=== PATIENT | male | born 1960 | race Caucasian/White ===

== ENCOUNTER 2022-04-26 09:53 | Day surgery (SDC) | payer OTHER ==
[2022-04-22 14:26] VITALS: BMI 20.7
[~2022-04-26 09:53] MED LIST: LACTATED RINGERS 1,000 ML IV SCH; LIDOCAINE 1% (10MG/ML) FOR IV START INTRADERMA PRN
[2022-04-26 10:35] VITALS: RESP 16; TEMP 98
[2022-04-26] MEDS ORDERED: PROPOFOL 10 MG/ML 20 ML VIAL IV ONE (11:11)
[2022-04-26] MEDS ORDERED: LIDOCAINE 2% INJ 20 MG/ML (2 ML VIAL) ONE (11:11)
--- NOTE | 2022-04-26 11:25 | P.PCN ---
Date of Procedure: 04/26/22 Procedure(s) Performed: BRIEF HISTORY: Patient is a 61-year-old, pleasant, white male scheduled for an upper endoscopy as part of evaluation of chronic dyspepsia for the last 1 year duration. He was diagnosed with H. pylori on serology testing and was treated with antibiotics with no help. He continues to have epigastric discomfort, epigastric fullness and chronic persistent nausea with weight loss of 20 pounds in the last 1. PROCEDURE PERFORMED: Esophagogastroduodenoscopy With biopsy PREOPERATIVE DIAGNOSIS: Chronic dyspepsia and history of H. pylori infection for 1 year duration IV sedation per anesthesia. PROCEDURE: After informed consent was obtained, the patient was brought into the endoscopy unit. IV sedation was administered by Anesthesia under continuous monitoring. Initially the Olympus GIF-140 video endoscope was inserted into the mouth. Esophagus intubated without any difficulty. It was gradually advanced into the stomach and duodenum and carefully examined. The bulb and the second part of the duodenum appeared normal. The scope at this time was withdrawn to the stomach, adequately insufflated with air, and upon careful examination, mucosa of the antrum, had linear esophageal erythema consistent with gastritis and biopsies were done from this area. The body, cardia and the fundus appeared normal. The scope was then withdrawn into the esophagus. The GE junction was located at 39 cm from the incisors. The esophagus appeared normal. There were no erosions or ulcerations seen , biopsies were done from the distal esophagus and the patient tolerated the procedure well. IMPRESSION: 1. Mild antral gastritis. 2. No evidence of esophagitis or peptic ulcer disease. RECOMMENDATIONS: The findings of this examination were discussed with the patient as well as his family. He was advised to follow with the biopsy results. Recommend Prilosec [id number] 20 mg daily.
[2022-04-26 11:44] VITALS: BP 155/96; PULSE 83
== END 2022-04-26 12:31 | disposition home or self-care (01) ==
LOC: ORWHC2ENDO 09:53
PROVIDERS: ATTEND Internal Medicine Gastroenterology
DX: K29.50 Unspecified chronic gastritis without bleeding (principal); K31.A11 Gastric intestinal metaplasia without dysplasia, involving the antrum; K20.90 Esophagitis, unspecified without bleeding; Z87.19 Personal history of other diseases of the digestive system; F32.A Depression, unspecified; F17.200 Nicotine dependence, unspecified, uncomplicated; Z79.51 Long term (current) use of inhaled steroids; Z79.899 Other long term (current) drug therapy; Z80.0 Family history of malignant neoplasm of digestive organs; Z82.49 Family history of ischemic heart disease and other diseases of the circulatory system; Z83.3 Family history of diabetes mellitus; Z84.89 Family history of other specified conditions
CPT/HCPCS: 88305; 43239; J2704; J2001

== ENCOUNTER 2024-02-17 21:09 | Inpatient (IN) | payer OTHER ==
[2024-02-17] MEDS: HEPARIN SOD,PORK IN 0.45% NACL 25,000 UNIT in 0.45% NACL 1 250ML.BAG IV SCH (21:33)
--- NOTE | 2024-02-17 21:35 | ED ---
General Adult HPI - General Chief complaint: Shortness of Breath Stated complaint: covid Time Seen by Provider: 02/17/24 21:11 Source: patient, EMS, RN notes reviewed, old records reviewed Mode of arrival: EMS Limitations: altered mental status - History of Present Illness Initial comments: 63-year-old male who presented from [facility] for evaluation of dyspnea, which was apparently multifactorial. Patient was presenting with known coronavirus and increased dyspnea. He was found to be in acute CHF with an elevated BNP and pulmonary edema on x-ray. Additionally he had uptrending troponin from 0.146-1. He was sent to this hospital for cardiology consultation regarding this elevated troponin and NSTEMI. Patient had been started on heparin, received IV antibiotics as well as IV steroids and IV Lasix. Patient arrives confused with difficult time answering questions. Unknown baseline for this patient. He denies central chest pain but history is significantly limited. - Related Data Home Medications Medication Instructions Recorded Confirmed Cetirizine HCl [Zyrtec] 10 mg PO DAILY 04/24/17 04/22/22 Ibuprofen [Motrin] 200 - 400 mg PO Q6HR PRN 04/24/17 04/22/22 SUMAtriptan succinate [Imitrex] 25 mg PO BID PRN 04/24/17 04/22/22 Budesonide-Formot 160-4.5 Mcg 2 puff INHALATION BID 04/22/22 04/22/22 [Symbicort 160-4.5 Mcg Inhaler] Montelukast Sodium [Singulair] 10 mg PO HS 04/22/22 04/22/22 Venlafaxine HCl ER [Effexor Xr] 75 mg PO DAILY 04/22/22 04/22/22 Allergies Allergy/AdvReac Type Severity Reaction Status Date / Time No Known Allergies Allergy Verified 02/17/24 21:17 Review of Systems ROS Statement: Those systems with pertinent positive or pertinent negative responses have been documented in the HPI. ROS Other: All systems not noted in ROS Statement are negative. Past Medical History Past Medical History: COPD, Deep Vein Thrombosis (DVT), Pneumonia, Skin Disorder, Vascular Disorder Additional Past Medical History / Comment(s): unexplained wt loss, nausea in am with abdominal bloating and bleeding seen with stools,hx migraines, multiple varicose vein problems including vein stripping, pneumonia 2009,DVT left leg History of Any Multi-Drug Resistant Organisms: None Reported Additional Past Surgical History / Comment(s): vein stripping X5,colonoscopy- last done 2020,hemorrhoidectomy Past Anesthesia/Blood Transfusion Reactions: No Reported Reaction Past Psychological History: Anxiety, Depression Smoking Status: Current every day smoker Past Alcohol Use History: None Reported Past Drug Use History: None Reported - Past Family History Sister(s) Family Medical History: Cancer Additional Family Medical History / Comment(s): colon Brother(s) Family Medical History: Cancer Additional Family Medical History / Comment(s): stomach Mother Additional Family Medical History / Comment(s): age 85 of heart problems Father Additional Family Medical History / Comment(s): age 87 of heart problems. General Exam Limitations: altered mental status General appearance: lethargic Head exam: Present: atraumatic, normocephalic Eye exam: Present: normal appearance, PERRL Respiratory exam: Present: respiratory distress, rales, decreased breath sounds Cardiovascular Exam: Present: normal rhythm, tachycardia GI/Abdominal exam: Present: soft. Absent: distended, tenderness, guarding Neurological exam: Absent: oriented X3 Psychiatric exam: Present: normal affect, normal mood Skin exam: Present: warm, dry, intact Course Vital Signs 02/17/24 02/17/24 02/17/24 21:12 21:26 21:36 Temperature 97.4 F L Pulse Rate 128 H Respiratory 24 24 Rate Blood Pressure 147/107 O2 Sat by Pulse 100 Oximetry Fraction of 80 Inspired Oxygen (FIO2) 02/17/24 02/17/24 02/17/24 22:36 23:30 23:31 Temperature 98.2 F Pulse Rate 115 H Respiratory 35 H Rate Blood Pressure 116/97 87/46 64/32 O2 Sat by Pulse 97 Oximetry Fraction of Inspired Oxygen (FIO2) 02/17/24 02/17/24 02/17/24 23:33 23:34 23:38 Temperature Pulse Rate Respiratory Rate Blood Pressure 55/33 71/25 O2 Sat by Pulse Oximetry Fraction of 60 Inspired Oxygen (FIO2) 02/17/24 02/17/24 23:45 23:52 Temperature Pulse Rate Respiratory Rate Blood Pressure 63/41 65/43 O2 Sat by Pulse Oximetry Fraction of Inspired Oxygen (FIO2) Procedures - Intubation Sedative: Etomidate Mg Given: 10 Paralytic: Succinylcholine Mg Given: 100 Laryngoscope: Raoul Size: 3 ET Tube Size: 8 ET Tube Uncuffed: No Tube Secured Depth (cm): 23 Tube Secured Location: lips Tube Placement Confirmation: visualized tube passing through cords, equal breath sounds bilaterally, no breath sounds over epigastrium, confirmation by capnometry Patient Tolerated Procedure: well Intubation Complications: none Medical Decision Making - Medical Decision Making Was pt. sent in by a medical professional or institution (, [facility], PSYCHIATRIC REGISTERED NURSE, urgent care, hospital, or penitentiary...) When possible be specific @José Miguel collazo [place] Did you speak to anyone other than the patient for history (EMS, parent, family, police, friend...)? What history was obtained from this source @ -No Did you review nursing and triage notes (agree or disagree)? Why? @ -I reviewed and agree with nursing and triage notes Were old charts reviewed (outside hosp., previous admission, EMS record, old EKG, old radiological studies, urgent care reports/EKG's, penitentiary records)? Report findings @ -No old charts were reviewed Differential Dyspnea: Coronary syndrome, arrhythmia, tamponade, asthma, COPD, pulmonary embolism, pneumonia, pneumothorax, pulmonary effusion, anaphylaxis, diabetic ketoacidosis, flailed chest, pulmonary contusion, diaphragmatic rupture, anemia, neuromuscular, this is not meant to be an all-inclusive list. EKG interpreted by me (3pts min.). @ -Sinus tachycardia significant artifact limiting assessment. I do not see any ST segment elevation rate of 123, NM interval 158, QRS duration 77, QTc 367 X-rays interpreted by me (1pt min.). @ -Initial chest x-ray shows hyperinflation, repeat single view chest x-ray after intubation shows the ET tube above the marc approximately 9 cm this is lower. CT interpreted by me (1pt min.). @ -[CT angiography negative for pulmonary embolism. U/S interpreted by me (1pt. min.). @ -None done What testing was considered but not performed or refused? (CT, X-rays, U/S, labs)? Why? @ -None What meds were considered but not given or refused? Why? @ -None Did you discuss the management of the patient with other professionals (professionals i.e. , PA, PSYCHIATRIC REGISTERED NURSE, lab, RT, psych nurse, social work faculty member, hold worker, teacher, business banking officer, rn case mgr)? Give summary @Case discussed with the admitting physician Dr. Campos the pulmonary final finisher forging dies Dr. Mcdaniels and the calculator operator on-call Was smoking cessation discussed for >3mins.? @ -No Was critical care preformed (if so, how long)? @ -35 minutes Were there social determinants of health that impacted care today? How? (Homelessness, low income, unemployed, alcoholism, drug addiction, transportat ion, low edu. Level, literacy, decrease access to med. care, penitentiary, rehab)? @ -No Was there de-escalation of care discussed even if they declined (Discuss DNR or withdrawal of care, Hospice)? DNR status @ -No What co-morbidities impacted this encounter? (DM, HTN, Smoking, COPD, CAD, Cancer, CVA, ARF, Chemo, Hep., AIDS, mental health diagnosis, sleep apnea, morbid obesity)? @ -COPD. Was patient admitted / discharged? Hospital course, mention meds given and route, prescriptions, significant lab abnormalities, going to OR and other pertinent info. @ -63-year-old male presenting with multifactorial dyspnea, chief complaint of dyspnea requiring BiPAP. Patient unable to contribute significantly to the history. Despite BiPAP in the emergency department the patient's respiratory status continues to decline he becomes more altered. Venous gas shows a CO2 of 100 he is acidotic. Decision is made to intubate this patient for respiratory support and altered level of consciousness. Patient has significant lab abnormalities including abnormally and venous gas and a uptrending troponin. He is continued on heparin. He is also treated for COPD exacerbation. He is admitted to the ICU with both pulmonology and cardiology on consultation. Undiagnosed new problem with uncertain prognosis? @ -No Drug Therapy requiring intensive monitoring for toxicity (Heparin, Nitro, Insulin, Cardizem)? @ -No Were any procedures done? @ -Yes intubation Diagnosis/symptom? @ -Respiratory failure, COPD, NSTEMI Acute, or Chronic, or Acute on Chronic? @ -Acute Uncomplicated (without systemic symptoms) or Complicated (systemic symptoms)? @ -Complicated Side effects of treatment? @ -No Exacerbation, Progression, or Severe Exacerbation? @ -No Poses a threat to life or bodily function? How? (Chest pain, USA, OR, pneumonia, PE, COPD, DKA, ARF, appy, cholecystitis, CVA, Diverticulitis, Homicidal, S uicidal, threat to staff... and all critical care pts) @ -Yes, respiratory failure, ACS - Lab Data Result diagrams: 02/17/24 21:30 02/17/24 21:30 Lab Results 02/17/24 02/17/24 02/17/24 Range/Units 21:30 21:30 21:30 WBC 7.1 (3.8-10.6) k/uL RBC 4.66 (4.30-5.90) m/uL Hgb 15.8 (13.0-17.5) gm/dL Hct 50.2 (39.0-53.0) % MCV 107.7 H (80.0-100.0) fL MCH 33.9 (25.0-35.0) pg MCHC 31.5 (31.0-37.0) g/dL RDW 12.2 (11.5-15.5) % Plt Count 315 (150-450) k/uL MPV 7.9 Neutrophils % (Manual) 39 % Band Neuts % (Manual) 35 % Lymphocytes % (Manual) 14 % Monocytes % (Manual) 13 % Neutrophils # (Manual) 5.20 (1.3-7.7) k/uL Lymphocytes # (Manual) 0.99 L (1.0-4.8) k/uL Monocytes # (Manual) 0.92 (0-1.0) k/uL Nucleated RBCs 2 H (0-0) /100 WBC Manual Slide Review Performed Macrocytosis Moderate PT 10.2 (10.0-12.5) sec INR 0.9 (<1.2) APTT 31.4 H (22.0-30.0) sec VBG pH (7.31-7.41) VBG pCO2 (37-51) mmHg VBG HCO3 (24-28) mmol/L Sodium 141 (137-145) mmol/L Potassium 5.3 H (3.5-5.1) mmol/L Chloride 101 (98-107) mmol/L Carbon Dioxide 32 H (22-30) mmol/L Anion Gap 8 mmol/L BUN 21 H (9-20) mg/dL Creatinine 0.65 L (0.66-1.25) mg/dL Est GFR (CKD-EPI)AfAm >90 (>60 ml/min/1.73 sqM) Est GFR (CKD-EPI)NonAf >90 (>60 ml/min/1.73 sqM) Glucose 205 H (74-99) mg/dL Plasma Lactic Acid Dieter (0.7-2.0) mmol/L Calcium 9.2 (8.4-10.2) mg/dL Magnesium 2.1 (1.6-2.3) mg/dL Total Bilirubin 0.8 (0.2-1.3) mg/dL AST 82 H (17-59) U/L ALT 61 H (4-49) U/L Alkaline Phosphatase 115 (38-126) U/L Troponin I (0.000-0.034) ng/mL NT-Pro-B Natriuret Pep 27834 pg/mL Total Protein 8.3 H (6.3-8.2) g/dL Albumin 4.4 (3.5-5.0) g/dL Influenza Type A (PCR) (Not Detectd) Influenza Type B (PCR) (Not Detectd) RSV (PCR) (Not Detectd) SARS-CoV-2 (PCR) (Not Detectd) 02/17/24 02/17/24 02/17/24 Range/Units 21:30 21:30 21:35 WBC (3.8-10.6) k/uL RBC (4.30-5.90) m/uL Hgb (13.0-17.5) gm/dL Hct (39.0-53.0) % MCV (80.0-100.0) fL MCH (25.0-35.0) pg MCHC (31.0-37.0) g/dL RDW (11.5-15.5) % Plt Count (150-450) k/uL MPV Neutrophils % (Manual) % Band Neuts % (Manual) % Lymphocytes % (Manual) % Monocytes % (Manual) % Neutrophils # (Manual) (1.3-7.7) k/uL Lymphocytes # (Manual) (1.0-4.8) k/uL Monocytes # (Manual) (0-1.0) k/uL Nucleated RBCs (0-0) /100 WBC Manual Slide Review Macrocytosis PT (10.0-12.5) sec INR (<1.2) APTT (22.0-30.0) sec VBG pH 7.13 L* (7.31-7.41) VBG pCO2 100 H* (37-51) mmHg VBG HCO3 33 H (24-28) mmol/L Sodium (137-145) mmol/L Potassium (3.5-5.1) mmol/L Chloride (98-107) mmol/L Carbon Dioxide (22-30) mmol/L Anion Gap mmol/L BUN (9-20) mg/dL Creatinine (0.66-1.25) mg/dL Est GFR (CKD-EPI)AfAm (>60 ml/min/1.73 sqM) Est GFR (CKD-EPI)NonAf (>60 ml/min/1.73 sqM) Glucose (74-99) mg/dL Plasma Lactic Acid Dieter (0.7-2.0) mmol/L Calcium (8.4-10.2) mg/dL Magnesium (1.6-2.3) mg/dL Total Bilirubin (0.2-1.3) mg/dL AST (17-59) U/L ALT (4-49) U/L Alkaline Phosphatase (38-126) U/L Troponin I 2.310 H* (0.000-0.034) ng/mL NT-Pro-B Natriuret Pep pg/mL Total Protein (6.3-8.2) g/dL Albumin (3.5-5.0) g/dL Influenza Type A (PCR) Not Detected (Not Detectd) Influenza Type B (PCR) Not Detected (Not Detectd) RSV (PCR) Not Detected (Not Detectd) SARS-CoV-2 (PCR) Not Detected (Not Detectd) 02/17/24 Range/Units 22:45 WBC (3.8-10.6) k/uL RBC (4.30-5.90) m/uL Hgb (13.0-17.5) gm/dL Hct (39.0-53.0) % MCV (80.0-100.0) fL MCH (25.0-35.0) pg MCHC (31.0-37.0) g/dL RDW (11.5-15.5) % Plt Count (150-450) k/uL MPV Neutrophils % (Manual) % Band Neuts % (Manual) % Lymphocytes % (Manual) % Monocytes % (Manual) % Neutrophils # (Manual) (1.3-7.7) k/uL Lymphocytes # (Manual) (1.0-4.8) k/uL Monocytes # (Manual) (0-1.0) k/uL Nucleated RBCs (0-0) /100 WBC Manual Slide Review Macrocytosis PT (10.0-12.5) sec INR (<1.2) APTT (22.0-30.0) sec VBG pH (7.31-7.41) VBG pCO2 (37-51) mmHg VBG HCO3 (24-28) mmol/L Sodium (137-145) mmol/L Potassium (3.5-5.1) mmol/L Chloride (98-107) mmol/L Carbon Dioxide (22-30) mmol/L Anion Gap mmol/L BUN (9-20) mg/dL Creatinine (0.66-1.25) mg/dL Est GFR (CKD-EPI)AfAm (>60 ml/min/1.73 sqM) Est GFR (CKD-EPI)NonAf (>60 ml/min/1.73 sqM) Glucose (74-99) mg/dL Plasma Lactic Acid Dieter 2.2 H* (0.7-2.0) mmol/L Calcium (8.4-10.2) mg/dL Magnesium (1.6-2.3) mg/dL Total Bilirubin (0.2-1.3) mg/dL AST (17-59) U/L ALT (4-49) U/L Alkaline Phosphatase (38-126) U/L Troponin I (0.000-0.034) ng/mL NT-Pro-B Natriuret Pep pg/mL Total Protein (6.3-8.2) g/dL Albumin (3.5-5.0) g/dL Influenza Type A (PCR) (Not Detectd) Influenza Type B (PCR) (Not Detectd) RSV (PCR) (Not Detectd) SARS-CoV-2 (PCR) (Not Detectd) Critical Care Time Critical Care Time: Yes Total Critical Care Time: 35 Disposition Clinical Impression: Acute exacerbation of chronic obstructive pulmonary disease, Respiratory failure with hypercapnia, NSTEMI (non-ST elevated myocardial infarction) Disposition: ADMITTED IP TO THIS HOSP Condition: Serious Is patient prescribed a controlled substance at d/c from ED?: No Time of Disposition: 00:23
[2024-02-17 21:49] LABS: HCT 50.2 % (39.0-53.0); HGB 15.8 gm/dL (13.0-17.5); MCH 33.9 pg (25.0-35.0); MCHC 31.5 g/dL (31.0-37.0); MCV 107.7 fL (80.0-100.0); Macrocytosis Moderate; Mean Platelet Volume 7.9; Platelet Count 315 k/uL (150-450); RBC 4.66 m/uL (4.30-5.90); RDW 12.2 % (11.5-15.5)
[2024-02-17] MEDS: LORazepam 2 MG/ML INJ IV STA (22:07)
[2024-02-17 22:24] LABS: INR 0.9 (<1.2); Partial Thromboplastin Time 31.4 sec (22.0-30.0); Prothrombin Time 10.2 sec (10.0-12.5)
[2024-02-17 22:30] LABS: ALT 61 U/L (4-49); African American GFR (CKD) >90 (>60 ml/min/1.73 sqM); Albumin 4.4 g/dL (3.5-5.0); Anion Gap 8 mmol/L; Blood Urea Nitrogen 21 mg/dL (9-20); Calcium 9.2 mg/dL (8.4-10.2); Carbon Dioxide 32 mmol/L (22-30); Chloride 101 mmol/L (98-107); Glucose 205 mg/dL (74-99); Non-African American GFR(CKD) >90 (>60 ml/min/1.73 sqM); Sodium 141 mmol/L (137-145); Total Bilirubin 0.8 mg/dL (0.2-1.3); Total Protein 8.3 g/dL (6.3-8.2)
[2024-02-17 22:31] LABS: VBG PH 7.13 (7.31-7.41)
[2024-02-17 22:32] LABS: AST 82 U/L (17-59); Alkaline Phosphatase 115 U/L (38-126); Magnesium 2.1 mg/dL (1.6-2.3); Potassium 5.3 mmol/L (3.5-5.1)
[2024-02-17 22:36] LABS: NT-Pro-B-Type Natriuretic Pept 14000 pg/mL
[2024-02-17] MEDS: SUCCINYLCHOLINE CHLORIDE 200 MG/10 ML VIAL IV ONE (22:59)
[2024-02-17] MEDS: ETOMIDATE 2 MG/ML 10 ML VIAL IVP STA (22:59)
[2024-02-17 23:13] LABS: Band Neutrophils % 35 %; Neutrophils % (M) 39 %; Nucleated Red Blood Cells 2 /100 WBC (0-0); Total Cells Counted 200
[2024-02-17 23:14] LABS: Lymphocytes # (M) 0.99 k/uL (1.0-4.8); Monocytes # (M) 0.92 k/uL (0-1.0); WBC 7.1 k/uL (3.8-10.6)
--- NOTE | 2024-02-17 23:36 | XR ---
EXAMINATION TYPE: XR chest 1V portable DATE OF EXAM: 02/17/2024 COMPARISON: NONE HISTORY: Difficulty breathing TECHNIQUE: Single frontal view of the chest is obtained. FINDINGS: Limited evaluation due to lack inclusion portion of the right hemithorax. Underlying emphy sematous changes seen in there is bilateral hilar prominence. No overt failure. No pneumothorax. Osse ous structures grossly intact. Findings are suggestive of pulmonary arterial hypertension. Right-side d adenopathy or mass in the differential diagnosis. Degenerative changes of the spine. IMPRESSION: 1. COPD with suspected right hilar adenopathy or mass correlate clinically. Recommend CT chest. 2. Question of peripheral left lower lobe nodule measuring 7 mm.
--- NOTE | 2024-02-17 23:42 | XR ---
EXAMINATION TYPE: XR chest 1V portable DATE OF EXAM: 02/17/2024 COMPARISON: 02/17/2024 HISTORY: Tube placement TECHNIQUE: Single frontal view of the chest is obtained. FINDINGS: Bilateral perihilar infiltrate with underlying emphysema. Could be postinfectious correlat e clinically to exclude neoplasm or pulmonary edema. No sizable pneumothorax. Diffuse osteopenia and degenerative change of the spine. Arthropathy of the shoulder. ET tube is approximately 9 cm above the marc. Chronic rib deformities suggest remote trauma. Blunti ng of the costophrenic angles likely related to hyperexpansion rather than tiny pleural effusion or p leural thickening. IMPRESSION: 1. ET tube approximately 9 cm above the marc. 2. Bilateral perihilar infiltrate. Could be postinfectious. Correlate clinically.
--- NOTE | 2024-02-18 00:03 | CT ---
EXAM: CT Head Without Intravenous Contrast CLINICAL HISTORY: ITS.REASON CT Reason: AMS TECHNIQUE: Axial computed tomography images of the head/brain without intravenous contrast. CTDI is 49.1 mGy and DLP is 1189 mGy-cm. This CT exam was performed using one or more of the following dose reduction techniques: automated exposure control, adjustment of the mA and/or kV according to patient size, and/or use of iterative reconstruction technique. COMPARISON: No relevant prior studies available. FINDINGS: No acute intracranial hemorrhage. No midline shift or mass effect. The territorial burgos-white matter differentiation is maintained throughout. Age-related cerebral volume loss. Periventricular and subcortical white matter hypoattenuation, consistent with chronic microangiopathy. The visualized orbits appear grossly unremarkable. The calvarium is intact. The visualized paranasal sinuses and mastoid air cells are grossly clear. IMPRESSION: No acute intracranial hemorrhage, midline shift, or mass effect.
[2024-02-18] MEDS ORDERED: NALOXONE 0.4 MG/ML 1 ML VIAL IV PRN ×2 (00:10→00:38)
[2024-02-18] MEDS ORDERED: IPRATROPIUM-ALBUTEROL 3 ML NEB INHALATION PRN (00:12)
--- NOTE | 2024-02-18 00:15 | CT ---
EXAM: CT Angiography Chest With Intravenous Contrast CLINICAL HISTORY: ITS.REASON CT Reason: chica TECHNIQUE: Axial computed tomographic angiography images of the chest with intravenous contrast. This CT exam was performed using one or more of the following dose reduction techniques: automated exposure control, adjustment of the mA and/or kV according to patient size, and/or use of iterative reconstruction technique. MIP reconstructed images were created and reviewed. COMPARISON: No relevant prior studies available. FINDINGS: Pulmonary arteries: Unremarkable. No pulmonary embolism. Aorta: Atherosclerotic changes of the aorta. No thoracic aortic aneurysm. Lungs: Hyperinflation with mild emphysema. Correlate for COPD. No mass. No definite pneumonia. No pleural effusion or pneumothorax. Pleural space: See above. Heart: Unremarkable. No cardiomegaly. No significant pericardial effusion. No evidence of RV dysfunction. Bones/joints: Degenerative changes of the spine. No acute fracture. No dislocation. Soft tissues: Unremarkable. Lymph nodes: Unremarkable. No enlarged lymph nodes. Liver: Hepatic steatosis. IMPRESSION: 1. No definite pneumonia. No pleural effusion or pneumothorax. 2. Hyperinflation with mild emphysema. Correlate for COPD.
[2024-02-18 00:32] LABS: ABG Base Excess 2.6 mmol/L; ABG HCO3 32 mmol/L (21-25); ABG Oxygen Saturation 99.9 % (94-97); ABG PCO2 68 mmHg (35-45); ABG PH 7.28 (7.35-7.45); ABG PO2 300 mmHg (83-108); Allen Test Performed? Yes
[2024-02-18 00:52] LABS: Glucose,Whole Blood 155 mg/dL (70-110)
[2024-02-18] MEDS: NOREPINEPHRINE 4 MG in SODIUM CHLORIDE 0.9% 250 ML IV SCH (01:34)
[2024-02-18 01:42] LABS: HCT 49.6 % (39.0-53.0); HGB 15.2 gm/dL (13.0-17.5); MCH 33.4 pg (25.0-35.0); MCHC 30.7 g/dL (31.0-37.0); MCV 108.9 fL (80.0-100.0); Macrocytosis Moderate; Mean Platelet Volume 8.7; Platelet Count 221 k/uL (150-450); RBC 4.56 m/uL (4.30-5.90); RDW 12.7 % (11.5-15.5); WBC 6.7 k/uL (3.8-10.6)
[2024-02-18] MEDS: SODIUM CHLORIDE 0.9% 1,000 ML IV SCH (02:09)
[2024-02-18] MEDS: methylPREDNISolone SOD SUCCI 125 MG/2 ML VIAL IV SCH (02:10)
[2024-02-18 02:15] LABS: Band Neutrophils % 44 %; Metamyelocytes # (M) 0.13 k/uL (0); Metamyelocytes % 2 %; Monocytes # (M) 0.74 k/uL (0-1.0); Neutrophils % (M) 32 %; Nucleated Red Blood Cells 0 /100 WBC (0-0); Total Cells Counted 200
[2024-02-18 03:20] LABS: African American GFR (CKD) >90 (>60 ml/min/1.73 sqM); Anion Gap 7 mmol/L; Blood Urea Nitrogen 24 mg/dL (9-20); Calcium 8.8 mg/dL (8.4-10.2); Carbon Dioxide 31 mmol/L (22-30); Chloride 103 mmol/L (98-107); Glucose 157 mg/dL (74-99); Non-African American GFR(CKD) >90 (>60 ml/min/1.73 sqM); Sodium 141 mmol/L (137-145)
[2024-02-18 03:30] LABS: Magnesium 2.1 mg/dL (1.6-2.3); Potassium 4.7 mmol/L (3.5-5.1)
[2024-02-18] MEDS: HYDROmorphone 1 MG/ML 1 ML SYRINGE IVP PRN (03:55)
[2024-02-18] MEDS: SODIUM CHLORIDE 0.9% 1,000 ML IV ONE (03:55)
[2024-02-18] MEDS: IPRATROPIUM-ALBUTEROL 3 ML NEB INHALATION SCH ×2 (04:16→12:23)
--- NOTE | 2024-02-18 04:40 | XR ---
EXAM: XR Chest, 1 View CLINICAL HISTORY: ITS.REASON XR Reason: ET tube placement TECHNIQUE: Frontal view of the chest. COMPARISON: 02/17/2024 FINDINGS: Lungs: Unremarkable. No consolidation. Pleural space: Unremarkable. No pneumothorax. Heart: Unremarkable. No cardiomegaly. Mediastinum: Endotracheal tube terminates 8.5 cm above the level of the marc. Nasogastric terminates in the stomach. Normal mediastinal contour. Bones/joints: Unremarkable. No acute fracture. IMPRESSION: Endotracheal tube terminates 8.5 cm above the marc. Nasogastric tube terminates in the stomach.
[2024-02-18 04:44] LABS: HGB 13.5 gm/dL (13.0-17.5); MCH 33.8 pg (25.0-35.0); MCHC 31.4 g/dL (31.0-37.0); MCV 107.8 fL (80.0-100.0); Macrocytosis Moderate; Mean Platelet Volume 8.8; Platelet Count 327 k/uL (150-450); RBC 3.99 m/uL (4.30-5.90); RDW 12.4 % (11.5-15.5); WBC 7.6 k/uL (3.8-10.6)
[2024-02-18 04:47] LABS: INR 0.8 (<1.2); Partial Thromboplastin Time 29.8 sec (22.0-30.0); Prothrombin Time 9.6 sec (10.0-12.5)
[2024-02-18] MEDS: HEPARIN SODIUM 1,000 UN/ML (10ML VL) IV PRN (05:07)
[2024-02-18 05:41] LABS: ABG Base Excess 2.8 mmol/L; ABG HCO3 29 mmol/L (21-25); ABG Oxygen Saturation 99.6 % (94-97); ABG PCO2 50 mmHg (35-45); ABG PH 7.38 (7.35-7.45); ABG PO2 171 mmHg (83-108); Allen Test Performed? Yes
[2024-02-18 06:53] LABS: Band Neutrophils % 39 %; Lymphocytes # (M) 1.14 k/uL (1.0-4.8); Metamyelocytes # (M) 0.15 k/uL (0); Metamyelocytes % 2 %; Monocytes # (M) 0.99 k/uL (0-1.0); Myelocytes # (M) 0.23 k/uL (0); Myelocytes % 3 %; Neutrophils % (M) 30 %; Nucleated Red Blood Cells 0 /100 WBC (0-0); Total Cells Counted 200
[2024-02-18] MEDS: PANTOPRAZOLE 40 MG/10 ML VIAL IV SCH (08:22)
--- NOTE | 2024-02-18 12:08 | P.CRDCN ---
History of Present Illness Consult date: 02/18/24 Consult reason: non-Q-wave PR History of present illness: The patient is a 63-year-old male who had presented to an outside hospital with increased shortness of breath. The patient had COVID-pneumonia approximately 1 week ago. Patient was transferred to [place] for escalation of care as he had a troponin of 0.14. Initial CO2 was 100 with pH of 7.13, therefore the patient was intubated in the emergency room. Subsequent troponins were elevated at 2.3, flat trend therefore cardiology was consulted. DIAGNOSTICS: CT scan of the chest shows no definite pneumonia, effusion, or pneumothorax. Hyperinflation function with mild emphysema noted. CT scan of the brain shows no acute intracranial hemorrhage, midline shift, or mass effect Chest x-ray shows bilateral perihilar infiltrate EKG shows sinus tachycardia Lab data: WBC 7.6, hemoglobin 13.5, hematocrit 43.0, platelet 327, sodium 141, potassium 4.7, BUN 24, creatinine 0.66, AST 82, ALT 61, troponin 0.14, 2.3, 2.3, BNP 14,000 REVIEW OF SYSTEMS: No fever or chills. No cough or expectoration. No diaphoresis. Patient denies headache, dizziness, blurred vision, double vision. Patient denies any stomach discomfort. No nausea, vomiting. No hematochezia. No hematemesis. Denies any black stools or blood in his stools. Denies dysuria or hematuria. Positive for weakness and fatigue. Denies shortness of breath. No chest pain. PHYSICAL EXAMINATION: This is a 59-year-old male in no apparent distress at the time of my examination. HEENT: Head is atraumatic, normocephalic. Pupils are equal, round. Sclerae anicteric. Conjunctivae are clear. Mucous membranes of the mouth are moist. Neck is supple. There is no jugular venous distention. No carotid bruit is heard. CHEST EXAMINATION: Lungs are diminished to auscultation. No chest wall tenderness is noted on palpation or with deep breathing. Bilateral inspiratory wheeze HEART EXAMINATION: Heart regular rate and rhythm. S1, S2 heard. No murmurs, gallops or rub. ABDOMEN: Soft, nontender. Bowel sounds are heard. No organomegaly noted. EXTREMITIES: 2+ peripheral pulses with no evidence of peripheral edema and no calf tenderness noted. NEUROLOGIC EXAMINATION: Patient is awake, alert and oriented x3. FINAL ASSESSMENT AND PLAN: Elevated troponins Acute hypercapnic respiratory failure Elevated BNP Recent COVID infection History of COPD PLAN: Awaiting echocardiogram Continue heparin drip over the next 24 hours Start statin therapy Patient likely to be extubated later today Further recommendations to be based upon clinical course I am dictating on behalf of Dr Ger Whalen's history/physical and assessment/plan. Past Medical History Past Medical History: COPD, Deep Vein Thrombosis (DVT), Pneumonia, Skin Disorder, Vascular Disorder Additional Past Medical History / Comment(s): unexplained wt loss, nausea in am with abdominal bloating and bleeding seen with stools,hx migraines, multiple varicose vein problems including vein stripping, pneumonia 2009,DVT left leg History of Any Multi-Drug Resistant Organisms: None Reported Additional Past Surgical History / Comment(s): vein stripping X5,colonoscopy- last done 2020,hemorrhoidectomy Past Anesthesia/Blood Transfusion Reactions: No Reported Reaction Past Psychological History: Anxiety, Depression Smoking Status: Current every day smoker Past Alcohol Use History: None Reported Past Drug Use History: None Reported - Past Family History Sister(s) Family Medical History: Cancer Additional Family Medical History / Comment(s): colon Brother(s) Family Medical History: Cancer Additional Family Medical History / Comment(s): stomach Mother Additional Family Medical History / Comment(s): age 85 of heart problems Father Additional Family Medical History / Comment(s): age 87 of heart problems. Medications and Allergies Home Medications Medication Instructions Recorded Confirmed Type Montelukast Sodium [Singulair] 10 mg PO DAILY 04/22/22 02/18/24 History Albuterol Sulfate [Albuterol 2 puff PO RT-Q4H PRN 02/18/24 02/18/24 History Sulfate Hfa] Furosemide [Lasix] 20 mg PO DAILY 02/18/24 02/18/24 History Mometasone/Formoterol [Dulera 200 2 puff INHALATION RT-BID 02/18/24 02/18/24 History Mcg-5 Mcg Inhaler] Nirmatrelvir/Ritonavir [Paxlovid 1 dose PO DIRECTED 02/18/24 02/18/24 History 300-100 mg Dose Pack] Pantoprazole Sodium [Protonix] 40 mg PO DAILY 02/18/24 02/18/24 History Venlafaxine HCl [Effexor XR] 150 mg PO DAILY 02/18/24 02/18/24 History busPIRone HCL [Buspirone HCl] 5 mg PO TID 02/18/24 02/18/24 History Allergies Allergy/AdvReac Type Severity Reaction Status Date / Time No Known Allergies Allergy Verified 02/17/24 21:17 Physical Exam Vitals: Vital Signs Temp Pulse Resp BP Pulse Ox FiO2 02/18/24 11:34 35 02/18/24 11:00 121 H 33 H 121/95 92 L 02/18/24 10:45 125 H 23 143/106 92 L 02/18/24 10:30 120 H 28 H 144/113 93 L 02/18/24 10:20 50 02/18/24 10:15 121 H 35 H 137/103 97 02/18/24 10:14 35 02/18/24 10:00 122 H 32 H 115/87 98 02/18/24 09:45 121 H 22 104/68 100 02/18/24 09:30 124 H 26 H 100 02/18/24 09:15 123 H 26 H 92/67 100 02/18/24 09:00 124 H 26 H 85/65 100 02/18/24 08:45 124 H 26 H 99/50 100 02/18/24 08:32 121 H 02/18/24 08:30 124 H 26 H 105/66 100 02/18/24 08:22 121 H 02/18/24 08:15 124 H 26 H 101/71 100 02/18/24 08:00 99.1 F 124 H 26 H 111/76 100 50 02/18/24 07:45 121 H 21 95/64 100 02/18/24 07:39 50 02/18/24 07:30 121 H 26 H 93/61 100 02/18/24 07:15 125 H 26 H 95/66 100 02/18/24 07:00 128 H 26 H 79/53 100 02/18/24 06:45 122 H 26 H 81/53 100 02/18/24 06:30 118 H 27 H 86/61 100 02/18/24 06:15 122 H 26 H 111/73 100 02/18/24 06:00 117 H 12 117/76 100 02/18/24 05:45 118 H 26 H 113/73 100 02/18/24 05:30 111 H 18 84/56 100 02/18/24 05:15 118 H 26 H 83/59 100 02/18/24 05:00 115 H 26 H 91/63 100 02/18/24 04:45 115 H 26 H 85/60 100 02/18/24 04:30 121 H 18 84/60 100 02/18/24 04:16 125 H 02/18/24 04:15 118 H 26 H 81/57 100 02/18/24 04:11 50 02/18/24 04:00 123 H 26 H 86/57 100 02/18/24 03:45 124 H 26 H 82/61 100 02/18/24 03:30 124 H 26 H 89/57 100 02/18/24 03:22 50 02/18/24 03:15 124 H 26 H 94/60 100 02/18/24 03:00 131 H 26 H 100/68 100 02/18/24 02:45 126 H 26 H 85/58 100 02/18/24 02:30 117 H 26 H 90/64 100 02/18/24 02:15 116 H 26 H 93/67 100 02/18/24 02:00 111 H 27 H 105/70 100 02/18/24 01:45 111 H 20 127/83 85 L 02/18/24 01:34 50 02/18/24 01:30 104 H 20 66/42 100 02/18/24 01:15 109 H 24 61/38 100 02/18/24 01:00 116 H 24 108/82 100 02/18/24 00:59 60 02/18/24 00:45 115 H 34 H 95/64 02/18/24 00:42 141 H 16 02/18/24 00:26 117/98 02/18/24 00:15 111 H 24 112/79 79 L 60 02/18/24 00:11 105 H 24 112/79 02/18/24 00:00 111 H 24 69/46 02/17/24 23:52 65/43 02/17/24 23:45 63/41 02/17/24 23:34 71/25 02/17/24 23:33 55/33 02/17/24 23:31 64/32 02/17/24 23:30 87/46 02/17/24 22:36 98.2 F 115 H 35 H 116/97 97 02/17/24 21:36 24 02/17/24 21:26 80 02/17/24 21:12 97.4 F L 128 H 24 147/107 100 Intake and Output 02/17/24 02/18/24 02/18/24 22:59 06:59 14:59 Intake Total 1628.406 463.504 Output Total 325 205 Balance 1303.406 258.504 Intake: IV 1450 350 Sodium Chloride 0.9% 1, 1450 350 000 ml @ 100 mls/hr IV . Q10H ARYA Rx#:[id number] Intake, IV Titration 158.406 113.504 Amount Heparin Sod,Pork in 0.45% 61.646 NaCl 25,000 unit In 0.45 % NaCl 1 250ml.bag @ 12 UNITS/KG/HR 8.165 mls/hr IV .Q24H ARYA Rx#: [id number] Norepinephrine 4 mg In 50.765 64.720 Sodium Chloride 0.9% 250 ml @ 0.03 MCG/KG/MIN 7. 777 mls/hr IV .Q24H ARYA Rx#:[id number] propofoL 1,000 mg In 45.995 48.784 Empty Bag 1 bag @ 15 MCG/ KG/MIN 6.124 mls/hr IV . [id number] ARYA Rx#:[id number] Tube Feeding 20 Output: Urine 325 205 Other: Voiding Method Indwelling Catheter Indwelling Catheter Weight 68.039 kg 68.039 kg Results 02/18/24 03:25 02/18/24 02:34 Cardiac Enzymes 02/17/24 02/17/24 02/18/24 Range/Units 21:30 21:30 03:25 AST 82 H (17-59) U/L Troponin I 2.310 H* 2.270 H* (0.000-0.034) ng/mL 02/18/24 Range/Units 05:59 AST (17-59) U/L Troponin I 2.300 H* (0.000-0.034) ng/mL Coagulation 02/17/24 02/18/24 Range/Units 21:30 03:25 PT 10.2 9.6 L (10.0-12.5) sec APTT 31.4 H 29.8 (22.0-30.0) sec CBC 02/17/24 02/18/24 02/18/24 Range/Units 21:30 01:00 03:25 WBC 7.1 6.7 7.6 (3.8-10.6) k/uL RBC 4.66 4.56 3.99 L (4.30-5.90) m/uL Hgb 15.8 15.2 13.5 (13.0-17.5) gm/dL Hct 50.2 49.6 43.0 (39.0-53.0) % Plt Count 315 221 327 (150-450) k/uL Comprehensive Metabolic Panel 02/17/24 02/18/24 Range/Units 21:30 02:34 Sodium 141 141 (137-145) mmol/L Potassium 5.3 H 4.7 (3.5-5.1) mmol/L Chloride 101 103 (98-107) mmol/L Carbon Dioxide 32 H 31 H (22-30) mmol/L BUN 21 H 24 H (9-20) mg/dL Creatinine 0.65 L 0.66 (0.66-1.25) mg/dL Glucose 205 H 157 H (74-99) mg/dL Calcium 9.2 8.8 (8.4-10.2) mg/dL AST 82 H (17-59) U/L ALT 61 H (4-49) U/L Alkaline Phosphatase 115 (38-126) U/L Total Protein 8.3 H (6.3-8.2) g/dL Albumin 4.4 (3.5-5.0) g/dL Current Medications Generic Name Dose Route Start Last Admin Trade Name Freq PRN Reason Stop Dose Admin Albuterol/Ipratropium 3 ml 02/18/24 00:12 Ipratropium-Albuterol 3 Ml Neb INHALATION RT-Q2H PRN Shortness Of Breath Or Wheezing Albuterol/Ipratropium 3 ml 02/18/24 12:00 Ipratropium-Albuterol 3 Ml Neb INHALATION RT-QID ARYA Budesonide 1 mg 02/18/24 20:00 Budesonide 1 Mg/2 Ml Nebu INHALATION RT-BID [facility] Chlorhexidine Gluconate 15 ml 02/18/24 09:15 Chlorhexidine Gluconate 15 Ml Cup MUCOUS MEM BID ARYA Formoterol Fumarate 20 mcg 02/18/24 20:00 Formoterol Fumarate 20 Mcg/2 Ml Nebu INHALATION RT-BID ARYA Heparin Sodium (Porcine) 0 unit 02/17/24 21:20 02/18/24 05:07 Heparin Sodium 1,000 Un/Ml (10ml Vl) IV 3,400 unit PER PROTOCOL PRN Administration Low PTT Protocol Hydromorphone HCl 1 mg 02/18/24 03:40 02/18/24 03:55 Hydromorphone 1 Mg/Ml 1 Ml Syringe IVP 1 mg Q3H PRN Administration Pain Heparin Sodium/Sodium Chloride 250 mls @ 8.165 mls/hr 02/17/24 21:30 02/18/24 05:06 25,000 unit/ Sodium Chloride IV 15 units/kg/hr .Q24H ARYA 10.206 mls/hr Titration Protocol 12 UNITS/KG/HR Propofol 1,000 mg/ IV Solution 100 mls @ 6.124 mls/hr 02/17/24 23:00 02/18/24 09:30 IV 0 mcg/kg/min .[id number] ARYA 0 mls/hr Titration Protocol 15 MCG/KG/MIN Sodium Chloride 1,000 mls @ 100 mls/hr 02/18/24 00:15 02/18/24 02:09 Saline 0.9% IV 75 mls/hr .Q10H ARYA Administration Norepinephrine Bitartrate 4 mg 254 mls @ 7.777 mls/hr 02/18/24 01:30 02/18/24 11:00 / Sodium Chloride IV 0 mcg/kg/min .Q24H ARYA 0 mls/hr Titration Protocol 0.03 MCG/KG/MIN Methylprednisolone Sodium Succinate 60 mg 02/18/24 00:00 02/18/24 05:21 Methylprednisolone Sod Succi 125 Mg/2 Ml Vial IV 60 mg Q6HR ARYA Administration Naloxone HCl 0.2 mg 02/18/24 00:10 Naloxone 0.4 Mg/Ml 1 Ml Vial IV Q2M PRN Opioid Reversal Pantoprazole Sodium 40 mg 02/18/24 09:00 02/18/24 08:22 Pantoprazole 40 Mg/10 Ml Vial IV 40 mg DAILY ARYA Administration Intake and Output 02/17/24 02/18/24 02/18/24 22:59 06:59 14:59 Intake Total 1628.406 463.504 Output Total 325 205 Balance 1303.406 258.504 Intake: IV 1450 350 Sodium Chloride 0.9% 1, 1450 350 000 ml @ 100 mls/hr IV . Q10H ARYA Rx#:[id number] Intake, IV Titration 158.406 113.504 Amount Heparin Sod,Pork in 0.45% 61.646 NaCl 25,000 unit In 0.45 % NaCl 1 250ml.bag @ 12 UNITS/KG/HR 8.165 mls/hr IV .Q24H ARYA Rx#: [id number] Norepinephrine 4 mg In 50.765 64.720 Sodium Chloride 0.9% 250 ml @ 0.03 MCG/KG/MIN 7. 777 mls/hr IV .Q24H ARYA Rx#:[id number] propofoL 1,000 mg In 45.995 48.784 Empty Bag 1 bag @ 15 MCG/ KG/MIN 6.124 mls/hr IV . [id number] ARYA Rx#:[id number] Tube Feeding 20 Output: Urine 325 205 Other: Voiding Method Indwelling Catheter Indwelling Catheter Weight 68.039 kg 68.039 kg 02/18/24 03:25 02/18/24 02:34
--- NOTE | 2024-02-18 13:15 | P.CNPUL ---
History of Present Illness Consult date: 02/18/24 Requesting physician: Eleuterio E Sheet Reason for consult: other (Acute hypoxic respiratory failure) Chief complaint: Shortness of breath History of present illness: This is a 63-year-old white male seen yesterday at [facility] with symptoms of shortness of breath which has been worsening over the last few days. Patient was evaluated and felt that the patient may have some component of c ongestive heart failure. He had elevated BNP but relatively unremarkable chest x-ray. Patient was also noted to have elevated troponin then he was transferred to [facility] for cardiac evaluation and possible non-ST elevation myocardial infarction. Patient was started on heparin and he also received antibiotics, IV Lasix, and IV steroids. Brought into the ER and shortly after he arrived, the patient was noted to be in severe respiratory distress. Patient was intubated, mechanically ventilated, admitted to the ICU overnight, and I was asked to see him on consultation. Patient was intubated and mechanically ventilated assist-control rate of 26 tidal volume 450 FiO2 was 50% by cut it down to 35% and PEEP was at 5 ABG on 50% showed a pO2 of 171 pCO2 50 pH of 7.38. Patient was on propofol at 40 mcg/kg/min norepinephrine at 0.07 mcg/kg/min IV fluid 0.9 normal saline at 75 cc/h. He had a negative CT angiogram of the chest on admission negative CT of the brain, I evaluated the patient, patient was arousable, following instructions, hence I proceeded to stopping propofol, and I recommended a short weaning trial with pressure support of 10 and CPAP. Indeed the patient tolerated the weaning trial fairly well, hence I recommended extubation while I am at bedside. Patient will be extubated to BiPAP 08/23/35%. Looking at his initial venous blood gases when the patient arrived to the ER last night he had a pCO2 of 100 pH of 7.13 and bicarb of 33 point obviously the patient presented with acute hypoxic and hypercapnic respiratory failure. Requiring intubation mechanical ventilation. He was seen by cardiology also while in the ICU, he was seen for his elevated troponins, and the recommendation was to continue heparin over the next 24 hours, start patient on statin, and await echocardiogram report for further recommendation. Review of Systems ROS unobtainable: due to endotracheal tube Past Medical History Past Medical History: COPD, Deep Vein Thrombosis (DVT), Pneumonia, Skin Disorder, Vascular Disorder Additional Past Medical History / Comment(s): unexplained wt loss, nausea in am with abdominal bloating and bleeding seen with stools,hx migraines, multiple varicose vein problems including vein stripping, pneumonia 2009,DVT left leg History of Any Multi-Drug Resistant Organisms: None Reported Additional Past Surgical History / Comment(s): vein stripping X5,colonoscopy- last done 2020,hemorrhoidectomy Past Anesthesia/Blood Transfusion Reactions: No Reported Reaction Past Psychological History: Anxiety, Depression Smoking Status: Current every day smoker Past Alcohol Use History: None Reported Past Drug Use History: None Reported - Past Family History Sister(s) Family Medical History: Cancer Additional Family Medical History / Comment(s): colon Brother(s) Family Medical History: Cancer Additional Family Medical History / Comment(s): stomach Mother Additional Family Medical History / Comment(s): age 85 of heart problems Father Additional Family Medical History / Comment(s): age 87 of heart problems. Medications and Allergies Home Medications Medication Instructions Recorded Confirmed Type Montelukast Sodium [Singulair] 10 mg PO DAILY 04/22/22 02/18/24 History Albuterol Sulfate [Albuterol 2 puff PO RT-Q4H PRN 02/18/24 02/18/24 History Sulfate Hfa] Furosemide [Lasix] 20 mg PO DAILY 02/18/24 02/18/24 History Mometasone/Formoterol [Dulera 200 2 puff INHALATION RT-BID 02/18/24 02/18/24 History Mcg-5 Mcg Inhaler] Nirmatrelvir/Ritonavir [Paxlovid 1 dose PO DIRECTED 02/18/24 02/18/24 History 300-100 mg Dose Pack] Pantoprazole Sodium [Protonix] 40 mg PO DAILY 02/18/24 02/18/24 History Venlafaxine HCl [Effexor XR] 150 mg PO DAILY 02/18/24 02/18/24 History busPIRone HCL [Buspirone HCl] 5 mg PO TID 02/18/24 02/18/24 History Allergies Allergy/AdvReac Type Severity Reaction Status Date / Time No Known Allergies Allergy Verified 02/17/24 21:17 Physical Exam Vitals: Vital Signs Temp Pulse Resp BP Pulse Ox FiO2 02/18/24 11:34 35 02/18/24 11:00 121 H 33 H 121/95 92 L 02/18/24 10:45 125 H 23 143/106 92 L 02/18/24 10:30 120 H 28 H 144/113 93 L 02/18/24 10:20 50 02/18/24 10:15 121 H 35 H 137/103 97 02/18/24 10:14 35 02/18/24 10:00 122 H 32 H 115/87 98 02/18/24 09:45 121 H 22 104/68 100 02/18/24 09:30 124 H 26 H 100 02/18/24 09:15 123 H 26 H 92/67 100 02/18/24 09:00 124 H 26 H 85/65 100 02/18/24 08:45 124 H 26 H 99/50 100 02/18/24 08:32 121 H 02/18/24 08:30 124 H 26 H 105/66 100 02/18/24 08:22 121 H 02/18/24 08:15 124 H 26 H 101/71 100 02/18/24 08:00 99.1 F 124 H 26 H 111/76 100 50 02/18/24 07:45 121 H 21 95/64 100 02/18/24 07:39 50 02/18/24 07:30 121 H 26 H 93/61 100 24 07:15 125 H 26 H 95/66 100 02/18/24 07:00 128 H 26 H 79/53 100 02/18/24 06:45 122 H 26 H 81/53 100 02/18/24 06:30 118 H 27 H 86/61 100 24 06:15 122 H 26 H 111/73 100 02/18/24 06:00 117 H 12 117/76 100 02/18/24 05:45 118 H 26 H 113/73 100 24 05:30 111 H 18 84/56 100 02/18/24 05:15 118 H 26 H 83/59 100 02/18/24 05:00 115 H 26 H 91/63 100 24 04:45 115 H 26 H 85/60 100 24 04:30 121 H 18 84/60 100 24 04:16 125 H 02/18/24 04:15 118 H 26 H 81/57 100 02/18/24 04:11 50 02 04:00 123 H 26 H 86/57 100 02/18/24 03:45 124 H 26 H 82/61 100 02/18/24 03:30 124 H 26 H 89/57 100 02/18/24 03:22 50 02/18/24 03:15 124 H 26 H 94/60 100 02/18/24 03:00 131 H 26 H 100/68 100 02/18/24 02:45 126 H 26 H 85/58 100 02/18/24 02:30 117 H 26 H 90/64 100 02/18/24 02:15 116 H 26 H 93/67 100 02/18/24 02:00 111 H 27 H 105/70 100 02/18/24 01:45 111 H 20 127/83 85 L 02/18/24 01:34 50 02/18/24 01:30 104 H 20 66/42 100 02/18/24 01:15 109 H 24 61/38 100 02/18/24 01:00 116 H 24 108/82 100 02/18/24 00:59 60 02/18/24 00:45 115 H 34 H 95/64 02/18/24 00:42 141 H 16 02/18/24 00:26 117/98 02/18/24 00:15 111 H 24 112/79 79 L 60 02/18/24 00:11 105 H 24 112/79 02/18/24 00:00 111 H 24 69/46 02/17/24 23:52 65/43 02/17/24 23:45 63/41 02/17/24 23:34 71/25 02/17/24 23:33 55/33 02/17/24 23:31 64/32 02/17/24 23:30 87/46 02/17/24 22:36 98.2 F 115 H 35 H 116/97 97 02/17/24 21:36 24 02/17/24 21:26 80 02/17/24 21:12 97.4 F L 128 H 24 147/107 100 Intake and Output 02/17/24 02/18/24 02/18/24 22:59 06:59 14:59 Intake Total 1628.406 463.504 Output Total 325 205 Balance 1303.406 258.504 Intake: IV 1450 350 Sodium Chloride 0.9% 1, 1450 350 000 ml @ 100 mls/hr IV . Q10H ARYA Rx#:[id number] Intake, IV Titration 158.406 113.504 Amount Heparin Sod,Pork in 0.45% 61.646 NaCl 25,000 unit In 0.45 % NaCl 1 250ml.bag @ 12 UNITS/KG/HR 8.165 mls/hr IV .Q24H ARYA Rx#: [id number] Norepinephrine 4 mg In 50.765 64.720 Sodium Chloride 0.9% 250 ml @ 0.03 MCG/KG/MIN 7. 777 mls/hr IV .Q24H ARYA Rx#:[id number] propofoL 1,000 mg In 45.995 48.784 Empty Bag 1 bag @ 15 MCG/ KG/MIN 6.124 mls/hr IV . [id number] ARYA Rx#:[id number] Tube Feeding 20 Output: Urine 325 205 Other: Voiding Method Indwelling Catheter Indwelling Catheter Weight 68.039 kg 68.039 kg PHYSICAL EXAMINATION: 63-year-old white male intubated, mechanically ventilated, not in distress. HEENT: Atraumatic, normocephalic, endotracheal tube and orogastric tube are intact, no neck masses no JVD, moist mucous membranes CHEST EXAMINATION: Diminished breath sound bilaterally minimal wheezing on forced expiratory maneuver. HEART EXAMINATION: Normal S1-S2, no S3 gallop, no murmur. ABDOMEN: Soft nontender no megaly no rebound no guarding EXTREMITIES: 2+ bipedal edema no clubbing no cyanosis NEUROLOGIC EXAMINATION: Patient is intubated mechanically ventilated, however he is appropriate, arousable, follows simple instructions. Psychiatric: Normal mood affect and normal mental status examination Skin: No rashes. Results - Laboratory Findings CBC and BMP: 02/18/24 03:25 02/18/24 02:34 ABG ABG pH 7.38 (7.35-7.45) 02/18/24 05:37 ABG pCO2 50 mmHg (35-45) H 02/18/24 05:37 ABG pO2 171 mmHg (83-108) H 02/18/24 05:37 ABG O2 Saturation 99.6 % (94-97) H 02/18/24 05:37 PT/INR, D-dimer PT 9.6 sec (10.0-12.5) L 02/18/24 03:25 INR 0.8 (<1.2) 02/18/24 03:25 Abnormal lab findings: Abnormal Labs 02/17/24 02/17/24 02/17/24 21:30 21:30 21:30 RBC MCV 107.7 H MCHC Lymphocytes # (Manual) 0.99 L Metamyelocytes # (Man) Myelocytes # (Manual) Nucleated RBCs 2 H PT APTT 31.4 H ABG pH ABG pCO2 ABG pO2 ABG HCO3 ABG O2 Saturation VBG pH VBG pCO2 VBG HCO3 Potassium 5.3 H Carbon Dioxide 32 H BUN 21 H Creatinine 0.65 L Glucose 205 H POC Glucose (mg/dL) Plasma Lactic Acid Dieter AST 82 H ALT 61 H Troponin I Total Protein 8.3 H 02/17/24 02/17/24 02/17/24 21:30 21:30 22:45 RBC MCV MCHC Lymphocytes # (Manual) Metamyelocytes # (Man) Myelocytes # (Manual) Nucleated RBCs PT APTT ABG pH ABG pCO2 ABG pO2 ABG HCO3 ABG O2 Saturation VBG pH 7.13 L* VBG pCO2 100 H* VBG HCO3 33 H Potassium Carbon Dioxide BUN Creatinine Glucose POC Glucose (mg/dL) Plasma Lactic Acid Dieter 2.2 H* AST ALT Troponin I 2.310 H* Total Protein 02/18/24 02/18/24 02/18/24 00:26 00:51 01:00 RBC MCV 108.9 H MCHC 30.7 L Lymphocytes # (Manual) 0.80 L Metamyelocytes # (Man) 0.13 H Myelocytes # (Manual) Nucleated RBCs PT APTT ABG pH 7.28 L ABG pCO2 68 H ABG pO2 300 H ABG HCO3 32 H ABG O2 Saturation 99.9 H VBG pH VBG pCO2 VBG HCO3 Potassium Carbon Dioxide BUN Creatinine Glucose POC Glucose (mg/dL) 155 H Plasma Lactic Acid Dieter AST ALT Troponin I Total Protein 02/18/24 02/18/24 02/18/24 02:34 02:34 03:25 RBC MCV MCHC Lymphocytes # (Manual) Metamyelocytes # (Man) Myelocytes # (Manual) Nucleated RBCs PT 9.6 L APTT ABG pH ABG pCO2 ABG pO2 ABG HCO3 ABG O2 Saturation VBG pH VBG pCO2 VBG HCO3 Potassium Carbon Dioxide 31 H BUN 24 H Creatinine Glucose 157 H POC Glucose (mg/dL) Plasma Lactic Acid Dieter 4.1 H* AST ALT Troponin I Total Protein 02/18/24 02/18/24 02/18/24 03:25 03:25 05:37 RBC 3.99 L MCV 107.8 H MCHC Lymphocytes # (Manual) Metamyelocytes # (Man) 0.15 H Myelocytes # (Manual) 0.23 H Nucleated RBCs PT APTT ABG pH ABG pCO2 50 H ABG pO2 171 H ABG HCO3 29 H ABG O2 Saturation 99.6 H VBG pH VBG pCO2 VBG HCO3 Potassium Carbon Dioxide BUN Creatinine Glucose POC Glucose (mg/dL) Plasma Lactic Acid Dieter AST ALT Troponin I 2.270 H* Total Protein 02/18/24 02/18/24 05:59 12:03 RBC MCV MCHC Lymphocytes # (Manual) Metamyelocytes # (Man) Myelocytes # (Manual) Nucleated RBCs PT APTT 35.4 H ABG pH ABG pCO2 ABG pO2 ABG HCO3 ABG O2 Saturation VBG pH VBG pCO2 VBG HCO3 Potassium Carbon Dioxide BUN Creatinine Glucose POC Glucose (mg/dL) Plasma Lactic Acid Dieter AST ALT Troponin I 2.300 H* Total Protein - Diagnostic Findings Chest x-ray: image reviewed (Chest x-ray this morning was reviewed, the lungs are basically unremarkable. The appearance seems to be an appearance of hyperinflated lungs otherwise negative) Assessment and Plan Assessment: Impression: Acute hypoxic and hypercapnic respiratory failure requiring intubation mechanical ventilation Acute exacerbation of COPD, suspect severe underlying COPD Possible non-STEMI ST elevation myocardial infarction Hypotension most likely secondary to hypovolemia and related to medications including propofol. History of deep vein thrombosis, left leg. History of unexplained weight loss in the past. History of migraine cephalgia History of varicose veins History of generalized anxiety disorder and depression Recommendation: Continue bronchodilators Patient will be given a trial of weaning and possibly extubation today. If extubated will extubate to BiPAP. Will continue to monitor the patient in the ICU Continue GI and DVT prophylaxis Continue heparin as ordered by cardiology and further cardiac workup is pending Resume home meds and continue bronchodilators as well as IV Solu-Medrol. Prognosis is guarded, patient is critically ill Will continue to follow. Critical care time is over 40 minutes Time with Patient: Greater than 30
[2024-02-18] MEDS: CHLORHEXIDINE GLUCONATE 15 ML CUP MUCOUS MEM SCH (13:39)
--- NOTE | 2024-02-18 14:13 | P.HPIM ---
History of Present Illness H&P Date: 02/18/24 History of present illness; patient is a 63-year-old gentleman with past medical history significant for COPD, CHF who is a transfer from [facility] for evaluation of shortness of breath. Patient initially presented to [facility] for shortness of breath, was found to be in COPD exacerbation and CHF exacerbation. Patient was placed on BiPAP, lab work was suggestive of elevated troponin. Patient was placed on heparin and transferred to [facility]. On evaluation at [facility], patient was lethargic, not able to maintain a conversation. His respiratory status was worsening, patient was intubated was transferred to ICU Initial lab work done in the ER showed WBC 7.1, hemoglobin 15.8, platelet count 315, sodium 141, potassium 5.3, BUN 29, creatinine 0.65, lactate 2.2 troponin 2.310, proBNP 1400 REVIEW OF SYSTEMS: Cannot be obtained as patient is currently intubated PHYSICAL EXAMINATION: GENERAL: The patient is intubated and sedated HEENT: Pupils are round and equally reacting to light. EOMI. No scleral icterus. No conjunctival pallor. Normocephalic, atraumatic. No pharyngeal erythema. No thyromegaly. CARDIOVASCULAR: S1 and S2 present. No murmurs, rubs, or gallops. PULMONARY: Chest is clear to auscultation, no wheezing or crackles. ABDOMEN: Soft, nontender, nondistended, normoactive bowel sounds. No palpable organomegaly. MUSCULOSKELETAL: No joint swelling or deformity. EXTREMITIES: No cyanosis, clubbing, or pedal edema. NEUROLOGICAL: Intubated SKIN: No rashes. Assessment and plan Acute hypoxemic hypercapnic aspiratory failure Acute COPD exacerbation Acute CHF exacerbation Hyperkalemia NSTEMI Lactic acidosis Monitor vital signs Monitor CBC Monitor CMP Continue telemetry monitoring Aggressive bronchopulmonary hygiene Continue vent management per ICU Continue propofol Trend troponins Ordered 2D echo Continue pharmacy heparin Continue breathing treatments Pulmonology consulted Cardiology consulted Labs and medication were reviewed.. Continue same treatment. Continue with symptomatic treatment. Resume home medication. Monitor labs and vitals. DVT and GI prophylaxis. Further recommendations as per clinical course of the patient Dictation was produced using [employer] dictation software. please excuse any grammatical, word or spelling errors. Past Medical History Past Medical History: COPD, Deep Vein Thrombosis (DVT), Pneumonia, Skin Disorder, Vascular Disorder Additional Past Medical History / Comment(s): unexplained wt loss, nausea in am with abdominal bloating and bleeding seen with stools,hx migraines, multiple varicose vein problems including vein stripping, pneumonia 2009,DVT left leg History of Any Multi-Drug Resistant Organisms: None Reported Additional Past Surgical History / Comment(s): vein stripping X5,colonoscopy- last done 2020,hemorrhoidectomy Past Anesthesia/Blood Transfusion Reactions: No Reported Reaction Past Psychological History: Anxiety, Depression Smoking Status: Current every day smoker Past Alcohol Use History: None Reported Past Drug Use History: None Reported - Past Family History Sister(s) Family Medical History: Cancer Additional Family Medical History / Comment(s): colon Brother(s) Family Medical History: Cancer Additional Family Medical History / Comment(s): stomach Mother Additional Family Medical History / Comment(s): age 85 of heart problems Father Additional Family Medical History / Comment(s): age 87 of heart problems. Medications and Allergies Home Medications Medication Instructions Recorded Confirmed Type Cetirizine HCl [Zyrtec] 10 mg PO DAILY 04/24/17 04/22/22 History Ibuprofen [Motrin] 200 - 400 mg PO Q6HR PRN 04/24/17 04/22/22 History SUMAtriptan succinate [Imitrex] 25 mg PO BID PRN 04/24/17 04/22/22 History Budesonide-Formot 160-4.5 Mcg 2 puff INHALATION BID 04/22/22 04/22/22 History [Symbicort 160-4.5 Mcg Inhaler] Montelukast Sodium [Singulair] 10 mg PO HS 04/22/22 04/22/22 History Venlafaxine HCl ER [Effexor Xr] 75 mg PO DAILY 04/22/22 04/22/22 History Allergies Allergy/AdvReac Type Severity Reaction Status Date / Time No Known Allergies Allergy Verified 02/17/24 21:17 Physical Exam Vitals: Vital Signs Temp Pulse Resp BP Pulse Ox FiO2 02/18/24 08:32 121 H 02/18/24 08:22 121 H 02/18/24 08:00 50 02/18/24 07:39 50 02/18/24 07:00 128 H 26 H 79/53 100 02/18/24 06:45 122 H 26 H 81/53 100 24 06:30 118 H 27 H 86/61 100 02/18/24 06:15 122 H 26 H 111/73 100 02/18/24 06:00 117 H 12 117/76 100 02/18/24 05:45 118 H 26 H 113/73 100 02/18/24 05:30 111 H 18 84/56 100 02/18/24 05:15 118 H 26 H 83/59 100 02/18/24 05:00 115 H 26 H 91/63 100 02/18/24 04:45 115 H 26 H 85/60 100 02/18/24 04:30 121 H 18 84/60 100 02/18/24 04:16 125 H 02/18/24 04:15 118 H 26 H 81/57 100 24 04:11 50 02/18/24 04:00 123 H 26 H 86/57 100 02/18/24 03:45 124 H 26 H 82/61 100 02/18/24 03:30 124 H 26 H 89/57 100 0224 03:22 50 02/18/24 03:15 124 H 26 H 94/60 100 02/18/24 03:00 131 H 26 H 100/68 100 02/18/24 02:45 126 H 26 H 85/58 100 24 02:30 117 H 26 H 90/64 100 02/18/24 02:15 116 H 26 H 93/67 100 02/18/24 02:00 111 H 27 H 105/70 100 02/18/24 01:45 111 H 20 127/83 85 L 0224 01:34 50 02/18/24 01:30 104 H 20 66/42 100 24 01:15 109 H 24 61/38 100 02/18/24 01:00 116 H 24 108/82 100 24 00:59 60 02 00:45 115 H 34 H 95/64 0224 00:42 141 H 16 02/18/24 00:26 117/98 02/18/24 00:15 111 H 24 112/79 79 L 60 02/18/24 00:11 105 H 24 112/79 02/18/24 00:00 111 H 24 69/46 02/17/24 23:52 65/43 02/17/24 23:45 63/41 02/17/24 23:38 60 02/17/24 23:34 71/25 02/17/24 23:33 55/33 02/17/24 23:31 64/32 02/17/24 23:30 87/46 02/17/24 22:36 98.2 F 115 H 35 H 116/97 97 02/17/24 21:36 24 02/17/24 21:26 80 02/17/24 21:12 97.4 F L 128 H 24 147/107 100 Intake and Output 02/17/24 02/18/24 02/18/24 22:59 06:59 14:59 Intake Total 1628.406 170.208 Output Total 325 120 Balance 1303.406 50.208 Intake: IV 1450 150 Sodium Chloride 0.9% 1, 1450 150 000 ml @ 75 mls/hr IV . [id number] [facility] Rx#:[id number] Intake, IV Titration 158.406 20.208 Amount Heparin Sod,Pork in 0.45% 61.646 NaCl 25,000 unit In 0.45 % NaCl 1 250ml.bag @ 12 UNITS/KG/HR 8.165 mls/hr IV .Q24H [facility] Rx#: [id number] Norepinephrine 4 mg In 50.765 Sodium Chloride 0.9% 250 ml @ 0.03 MCG/KG/MIN 7. 777 mls/hr IV .Q24H [facility] Rx#:[id number] propofoL 1,000 mg In 45.995 20.208 Empty Bag 1 bag @ 15 MCG/ KG/MIN 6.124 mls/hr IV . [id number] [facility] Rx#:[id number] Tube Feeding 20 Output: Urine 325 120 Other: Voiding Method Indwelling Catheter Weight 68.039 kg 68.039 kg Results CBC & Chem 7: 02/18/24 03:25 02/18/24 02:34 Labs: Abnormal Lab Results - Last 24 Hours (Table) 02/17/24 02/17/24 02/17/24 Range/Units 21:30 21:30 21:30 RBC (4.30-5.90) m/uL MCV 107.7 H (80.0-100.0) fL MCHC (31.0-37.0) g/dL Lymphocytes # (Manual) 0.99 L (1.0-4.8) k/uL Metamyelocytes # (Man) (0) k/uL Myelocytes # (Manual) (0) k/uL Nucleated RBCs 2 H (0-0) /100 WBC PT (10.0-12.5) sec APTT 31.4 H (22.0-30.0) sec ABG pH (7.35-7.45) ABG pCO2 (35-45) mmHg ABG pO2 (83-108) mmHg ABG HCO3 (21-25) mmol/L ABG O2 Saturation (94-97) % VBG pH (7.31-7.41) VBG pCO2 (37-51) mmHg VBG HCO3 (24-28) mmol/L Potassium 5.3 H (3.5-5.1) mmol/L Carbon Dioxide 32 H (22-30) mmol/L BUN 21 H (9-20) mg/dL Creatinine 0.65 L (0.66-1.25) mg/dL Glucose 205 H (74-99) mg/dL POC Glucose (mg/dL) (70-110) mg/dL Plasma Lactic Acid Dieter (0.7-2.0) mmol/L AST 82 H (17-59) U/L ALT 61 H (4-49) U/L Troponin I (0.000-0.034) ng/mL Total Protein 8.3 H (6.3-8.2) g/dL 02/17/24 02/17/24 02/17/24 Range/Units 21:30 21:30 22:45 RBC (4.30-5.90) m/uL MCV (80.0-100.0) fL MCHC (31.0-37.0) g/dL Lymphocytes # (Manual) (1.0-4.8) k/uL Metamyelocytes # (Man) (0) k/uL Myelocytes # (Manual) (0) k/uL Nucleated RBCs (0-0) /100 WBC PT (10.0-12.5) sec APTT (22.0-30.0) sec ABG pH (7.35-7.45) ABG pCO2 (35-45) mmHg ABG pO2 (83-108) mmHg ABG HCO3 (21-25) mmol/L ABG O2 Saturation (94-97) % VBG pH 7.13 L* (7.31-7.41) VBG pCO2 100 H* (37-51) mmHg VBG HCO3 33 H (24-28) mmol/L Potassium (3.5-5.1) mmol/L Carbon Dioxide (22-30) mmol/L BUN (9-20) mg/dL Creatinine (0.66-1.25) mg/dL Glucose (74-99) mg/dL POC Glucose (mg/dL) (70-110) mg/dL Plasma Lactic Acid Dieter 2.2 H* (0.7-2.0) mmol/L AST (17-59) U/L ALT (4-49) U/L Troponin I 2.310 H* (0.000-0.034) ng/mL Total Protein (6.3-8.2) g/dL 02/18/24 02/18/24 02/18/24 Range/Units 00:26 00:51 01:00 RBC (4.30-5.90) m/uL MCV 108.9 H (80.0-100.0) fL MCHC 30.7 L (31.0-37.0) g/dL Lymphocytes # (Manual) 0.80 L (1.0-4.8) k/uL Metamyelocytes # (Man) 0.13 H (0) k/uL Myelocytes # (Manual) (0) k/uL Nucleated RBCs (0-0) /100 WBC PT (10.0-12.5) sec APTT (22.0-30.0) sec ABG pH 7.28 L (7.35-7.45) ABG pCO2 68 H (35-45) mmHg ABG pO2 300 H (83-108) mmHg ABG HCO3 32 H (21-25) mmol/L ABG O2 Saturation 99.9 H (94-97) % VBG pH (7.31-7.41) VBG pCO2 (37-51) mmHg VBG HCO3 (24-28) mmol/L Potassium (3.5-5.1) mmol/L Carbon Dioxide (22-30) mmol/L BUN (9-20) mg/dL Creatinine (0.66-1.25) mg/dL Glucose (74-99) mg/dL POC Glucose (mg/dL) 155 H (70-110) mg/dL Plasma Lactic Acid Dieter (0.7-2.0) mmol/L AST (17-59) U/L ALT (4-49) U/L Troponin I (0.000-0.034) ng/mL Total Protein (6.3-8.2) g/dL 02/18/24 02/18/24 02/18/24 Range/Units 02:34 02:34 03:25 RBC (4.30-5.90) m/uL MCV (80.0-100.0) fL MCHC (31.0-37.0) g/dL Lymphocytes # (Manual) (1.0-4.8) k/uL Metamyelocytes # (Man) (0) k/uL Myelocytes # (Manual) (0) k/uL Nucleated RBCs (0-0) /100 WBC PT 9.6 L (10.0-12.5) sec APTT (22.0-30.0) sec ABG pH (7.35-7.45) ABG pCO2 (35-45) mmHg ABG pO2 (83-108) mmHg ABG HCO3 (21-25) mmol/L ABG O2 Saturation (94-97) % VBG pH (7.31-7.41) VBG pCO2 (37-51) mmHg VBG HCO3 (24-28) mmol/L Potassium (3.5-5.1) mmol/L Carbon Dioxide 31 H (22-30) mmol/L BUN 24 H (9-20) mg/dL Creatinine (0.66-1.25) mg/dL Glucose 157 H (74-99) mg/dL POC Glucose (mg/dL) (70-110) mg/dL Plasma Lactic Acid Dieter 4.1 H* (0.7-2.0) mmol/L AST (17-59) U/L ALT (4-49) U/L Troponin I (0.000-0.034) ng/mL Total Protein (6.3-8.2) g/dL 02/18/24 02/18/24 02/18/24 Range/Units 03:25 03:25 05:37 RBC 3.99 L (4.30-5.90) m/uL MCV 107.8 H (80.0-100.0) fL MCHC (31.0-37.0) g/dL Lymphocytes # (Manual) (1.0-4.8) k/uL Metamyelocytes # (Man) 0.15 H (0) k/uL Myelocytes # (Manual) 0.23 H (0) k/uL Nucleated RBCs (0-0) /100 WBC PT (10.0-12.5) sec APTT (22.0-30.0) sec ABG pH (7.35-7.45) ABG pCO2 50 H (35-45) mmHg ABG pO2 171 H (83-108) mmHg ABG HCO3 29 H (21-25) mmol/L ABG O2 Saturation 99.6 H (94-97) % VBG pH (7.31-7.41) VBG pCO2 (37-51) mmHg VBG HCO3 (24-28) mmol/L Potassium (3.5-5.1) mmol/L Carbon Dioxide (22-30) mmol/L BUN (9-20) mg/dL Creatinine (0.66-1.25) mg/dL Glucose (74-99) mg/dL POC Glucose (mg/dL) (70-110) mg/dL Plasma Lactic Acid Dieter (0.7-2.0) mmol/L AST (17-59) U/L ALT (4-49) U/L Troponin I 2.270 H* (0.000-0.034) ng/mL Total Protein (6.3-8.2) g/dL 02/18/24 Range/Units 05:59 RBC (4.30-5.90) m/uL MCV (80.0-100.0) fL MCHC (31.0-37.0) g/dL Lymphocytes # (Manual) (1.0-4.8) k/uL Metamyelocytes # (Man) (0) k/uL Myelocytes # (Manual) (0) k/uL Nucleated RBCs (0-0) /100 WBC PT (10.0-12.5) sec APTT (22.0-30.0) sec ABG pH (7.35-7.45) ABG pCO2 (35-45) mmHg ABG pO2 (83-108) mmHg ABG HCO3 (21-25) mmol/L ABG O2 Saturation (94-97) % VBG pH (7.31-7.41) VBG pCO2 (37-51) mmHg VBG HCO3 (24-28) mmol/L Potassium (3.5-5.1) mmol/L Carbon Dioxide (22-30) mmol/L BUN (9-20) mg/dL Creatinine (0.66-1.25) mg/dL Glucose (74-99) mg/dL POC Glucose (mg/dL) (70-110) mg/dL Plasma Lactic Acid Dieter (0.7-2.0) mmol/L AST (17-59) U/L ALT (4-49) U/L Troponin I 2.300 H* (0.000-0.034) ng/mL Total Protein (6.3-8.2) g/dL
[2024-02-18] MEDS: BUDESONIDE 1 MG/2 ML NEBU INHALATION SCH (19:49)
[2024-02-18] MEDS: FORMOTEROL FUMARATE 20 MCG/2 ML NEBU INHALATION SCH (19:49)
[2024-02-19 04:38] LABS: Basophils % (A) 0 %; Eosinophils % (A) 0 %; HCT 40.8 % (39.0-53.0); HGB 12.9 gm/dL (13.0-17.5); Lymphocytes % (A) 13 %; MCH 33.5 pg (25.0-35.0); MCHC 31.5 g/dL (31.0-37.0); MCV 106.4 fL (80.0-100.0); Macrocytosis Moderate; Mean Platelet Volume 8.4; Monocytes # (A) 0.5 k/uL (0-1.0); Monocytes % (A) 7 %; Neutrophils # (A) 6.2 k/uL (1.3-7.7); Neutrophils % (A) 77 %; Platelet Count 255 k/uL (150-450); RBC 3.84 m/uL (4.30-5.90); RDW 12.7 % (11.5-15.5)
[2024-02-19 04:57] LABS: African American GFR (CKD) >90 (>60 ml/min/1.73 sqM); Anion Gap -3 mmol/L; Blood Urea Nitrogen 20 mg/dL (9-20); Calcium 8.3 mg/dL (8.4-10.2); Carbon Dioxide 34 mmol/L (22-30); Chloride 105 mmol/L (98-107); Glucose 148 mg/dL (74-99); Non-African American GFR(CKD) >90 (>60 ml/min/1.73 sqM); Potassium 4.5 mmol/L (3.5-5.1); Sodium 136 mmol/L (137-145)
--- NOTE | 2024-02-19 07:18 | P.PN ---
Subjective Progress Note Date: 02/19/24 Principal diagnosis: Acute coronary syndrome The patient is a pleasant 63-year-old gentleman with a past medical history significant for COPD as well as hypertension and dyslipidemia and history of DVT was admitted to the hospital with acute hypoxic respiratory failure and he was diagnosed with COPD exacerbation and was found to have abnormal cardiac enzymes with elevated troponin with no EKG changes. He was treated medically. Echocardiogram was ordered and still pending. February 19, 2024 The patient was seen and evaluated this morning. He is asymptomatic with no pain in the chest but continues to have shortness of breath with exertion and continues to be hypoxic on oxygen. Eventually once he is stable from the COPD he need to undergo coronary angiogram to rule out severe CAD. The abnormal troponin also could be because of the hypoxemia and could be secondary to type II myocardial infarction. The echo still pending. Currently he is not on aspirin. I am going to start him on aspirin and start him on small dose of beta-alexander as well. The examination is remarkable for diminished breathing sounds bilaterally and regular rate and rhythm with a distant heart sounds and no edema was noted Assessment Acute hypoxic hypercapnic respiratory failure COPD exacerbation Evidence of myocardial injury secondary to type I versus type II ID Multiple comorbid conditions History of DVT Plan Continue current medical regimen Heparin was stopped because is more than 48 hours since it was started Start the patient on aspirin send Start the patient on beta-alexander Start the patient on statin Follow-up with the echocardiogram Consider coronary angiogram once he is stable from the pulmonary standpoint Objective - Vital Signs Vital signs: Vital Signs Temp 97.9 F 02/19/24 04:00 Pulse 91 02/19/24 07:00 Resp 28 H 02/19/24 07:00 BP 133/87 02/19/24 07:00 Pulse Ox 97 02/19/24 07:00 FiO2 35 02/18/24 11:34 Intake & Output 02/18/24 02/19/24 02/19/24 18:59 06:59 18:59 Intake Total 3273.290 5918.884 Output Total 730 900 Balance 624.678 587.884 Weight 63.5 kg Intake: IV 1150 1300 Sodium Chloride 0.9% 1, 1150 1300 000 ml @ 100 mls/hr IV . Q10H [facility] Rx#:[id number] Intake, IV Titration 204.678 187.884 Amount Heparin Sod,Pork in 0.45% 91.174 187.884 NaCl 25,000 unit In 0.45 % NaCl 1 250ml.bag @ 12 UNITS/KG/HR 8.165 mls/hr IV .Q24H [facility] Rx#: [id number] Norepinephrine 4 mg In 64.720 Sodium Chloride 0.9% 250 ml @ 0.03 MCG/KG/MIN 7. 777 mls/hr IV .Q24H [facility] Rx#:[id number] propofoL 1,000 mg In 48.784 Empty Bag 1 bag @ 15 MCG/ KG/MIN 6.124 mls/hr IV . [id number] [facility] Rx#:[id number] Output: Urine 730 900 Other: Voiding Method Indwelling Catheter Indwelling Catheter - Labs CBC & Chem 7: 02/19/24 03:50 02/19/24 03:50 Labs: Abnormal Lab Results - Last 24 Hours (Table) 02/18/24 02/18/24 02/19/24 Range/Units 12:03 19:48 03:50 RBC (4.30-5.90) m/uL Hgb (13.0-17.5) gm/dL MCV (80.0-100.0) fL APTT 35.4 H 42.5 H 52.7 H (22.0-30.0) sec Sodium (137-145) mmol/L Carbon Dioxide (22-30) mmol/L Creatinine (0.66-1.25) mg/dL Glucose (74-99) mg/dL Calcium (8.4-10.2) mg/dL 02/19/24 02/19/24 Range/Units 03:50 03:50 RBC 3.84 L (4.30-5.90) m/uL Hgb 12.9 L (13.0-17.5) gm/dL MCV 106.4 H (80.0-100.0) fL APTT (22.0-30.0) sec Sodium 136 L (137-145) mmol/L Carbon Dioxide 34 H (22-30) mmol/L Creatinine 0.53 L (0.66-1.25) mg/dL Glucose 148 H (74-99) mg/dL Calcium 8.3 L (8.4-10.2) mg/dL
--- NOTE | 2024-02-19 07:44 | XR ---
EXAMINATION TYPE: XR chest 1V portable DATE OF EXAM: 02/19/2024 Comparison: 02/18/2024 Clinical History: 63-year-old male Tube placement Findings: Heart upper limits of normal in size. Diffuse interstitial opacities and hyperinflation. Otherwise, n o brandt consolidation or pleural effusion. Interval extubation and removal of NG tube. Impression: COPD with superimposed mild interstitial infiltrates relatively similar.
[2024-02-19] MEDS: METOPROLOL TARTRATE 12.5 MG TAB PO SCH (08:43)
[2024-02-19] MEDS: ASPIRIN 81 MG PO SCH (08:43)
--- NOTE | 2024-02-19 12:09 | P.PN ---
Subjective Progress Note Date: 02/19/24 Principal diagnosis: Respiratory failure. This is a 63-year-old white male seen yesterday at [facility] with symptoms of shortness of breath which has been worsening over the last few days. Patient was evaluated and felt that the patient may have some component of congestive heart failure. He had elevated BNP but relatively unremarkable chest x-ray. Patient was also noted to have elevated troponin then he was transferred to [facility] for cardiac evaluation and possible non-ST elevation myocardial infarction. Patient was started on heparin and he also received antibiotics, IV Lasix, and IV steroids. Brought into the ER and shortly after he arrived, the patient was noted to be in severe respiratory distress. Patient was intubated, mechanically ventilated, admitted to the ICU overnight, and I was asked to see him on consultation. Patient was intubated and mechanically ventilated assist-control rate of 26 tidal volume 450 FiO2 was 50% by cut it down to 35% and PEEP was at 5 ABG on 50% showed a pO2 of 171 pCO2 50 pH of 7.38. Patient was on propofol at 40 mcg/kg/min norepinephrine at 0.07 mcg/kg/min IV fluid 0.9 normal saline at 75 cc/h. He had a negative CT angiogram of the chest on admission negative CT of the brain, I evaluated the patient, patient was arousable, following instructions, hence I proceeded to stopping propofol, and I recommended a short weaning trial with pressure support of 10 and CPAP. Indeed the patient tolerated the weaning trial fairly well, hence I recommended extubation while I am at bedside. Patient will be extubated to BiPAP 12/6/35%. Looking at his initial venous blood gases when the patient a rrived to the ER last night he had a pCO2 of 100 pH of 7.13 and bicarb of 33 point obviously the patient presented with acute hypoxic and hypercapnic respiratory failure. Requiring intubation mechanical ventilation. He was seen by cardiology also while in the ICU, he was seen for his elevated troponins, and the recommendation was to continue heparin over the next 24 hours, start patient on statin, and await echocardiogram report for further recommendation. Progress note dated February 19, 2024. This is a 63-year-old male seen today in room 261. The patient was intubated on February 16, for COPD exacerbation and respiratory failure. The patient was successfully extubated yesterday, February 17. Currently, he is on 2 L of oxygen. He is getting saline at 10 cc an hour. The patient does have mildly audible wheezes, and a very harsh, wet cough. Labs include a white count 8, hemoglobin 12.9, hematocrit 40.8, and a platelet count of 255,000. Sodium is 136, potassium 4.5, chlorides 105, CO2 34, BUN 20, creatinine 0.53. Calcium is 8.3. Sputum sampling is thus far negative. Chest x-ray shows some changes of COPD, with some diffuse atelectasis. Objective - Vital Signs Vital signs: Vital Signs Temp 98.7 F 02/19/24 08:00 Pulse 96 02/19/24 10:00 Resp 24 02/19/24 10:00 BP 138/84 02/19/24 10:00 Pulse Ox 99 02/19/24 10:00 FiO2 35 02/18/24 11:34 Intake & Output 02/18/24 02/19/24 02/19/24 18:59 06:59 18:59 Intake Total 9744.203 8115.884 300 Output Total 730 900 165 Balance 624.678 587.884 135 Weight 63.5 kg Intake: IV 1150 1300 300 Sodium Chloride 0.9% 1, 1150 1300 300 000 ml @ 100 mls/hr IV . Q10H [facility] Rx#:[id number] Intake, IV Titration 204.678 187.884 Amount Heparin Sod,Pork in 0.45% 91.174 187.884 NaCl 25,000 unit In 0.45 % NaCl 1 250ml.bag @ 12 UNITS/KG/HR 8.165 mls/hr IV .Q24H [facility] Rx#: [id number] Norepinephrine 4 mg In 64.720 Sodium Chloride 0.9% 250 ml @ 0.03 MCG/KG/MIN 7. 777 mls/hr IV .Q24H [facility] Rx#:[id number] propofoL 1,000 mg In 48.784 Empty Bag 1 bag @ 15 MCG/ KG/MIN 6.124 mls/hr IV . [id number] [facility] Rx#:[id number] Output: Urine 730 900 165 Other: Voiding Method Indwelling Catheter Indwelling Catheter Indwelling Catheter - Exam No acute distress, oriented 3. Currently on 2 L of oxygen. Saturations are 99%. HEENT examination is grossly unremarkable. Mucous membranes are moist. No oral lesions. Neck supple. Full range of motion. No adenopathy thyromegaly or neck vein distention. Cardiovascular examination reveals regular rhythm rate. S1-S2 normal. No S3 or S4. No discernible murmur noted. Heart sounds are distant. Heart rate 96 bpm. Lungs reveal diffuse bilateral inspiratory and expiratory rhonchi. Cough is harsh and wet sounding. Minimal expiratory wheezes. No crackles. Saturations are excellent on 2 L. Abdomen soft with bowel sounds. No masses or tenderness. Extremities are intact. No cyanosis clubbing or edema. Skin is without rash or lesion. Neurologic examination is brief but nonfocal. - Labs CBC & Chem 7: 02/19/24 03:50 02/19/24 03:50 Labs: Abnormal Lab Results - Last 24 Hours (Table) 02/18/24 02/18/24 02/19/24 Range/Units 12:03 19:48 03:50 RBC (4.30-5.90) m/uL Hgb (13.0-17.5) gm/dL MCV (80.0-100.0) fL APTT 35.4 H 42.5 H 52.7 H (22.0-30.0) sec Sodium (137-145) mmol/L Carbon Dioxide (22-30) mmol/L Creatinine (0.66-1.25) mg/dL Glucose (74-99) mg/dL Calcium (8.4-10.2) mg/dL 02/19/24 02/19/24 Range/Units 03:50 03:50 RBC 3.84 L (4.30-5.90) m/uL Hgb 12.9 L (13.0-17.5) gm/dL MCV 106.4 H (80.0-100.0) fL APTT (22.0-30.0) sec Sodium 136 L (137-145) mmol/L Carbon Dioxide 34 H (22-30) mmol/L Creatinine 0.53 L (0.66-1.25) mg/dL Glucose 148 H (74-99) mg/dL Calcium 8.3 L (8.4-10.2) mg/dL Microbiology - Last 24 Hours (Table) 02/18/24 01:06 Gram Stain - Preliminary Sputum Assessment and Plan Assessment: Acute hypoxemic and hypercapnic respiratory failure, requiring intubation on February 16, with successful extubation on February 17. Acute exacerbation of COPD. Possible non-ST segment elevation myocardial infarction. Hypotension, likely related to dehydration. History of deep vein thrombosis, left leg. History of unexplained weight loss. History of migraine cephalgia. History of varicose veins. History of generalized anxiety/depression. Plan: Plan dated February 19, 2024. The patient is seen today in room 261. The patient was intubated on February 16 for respiratory failure, and successfully extubated yesterday, February 17. The patient remains in the intensive care unit, room 261. Labs, x-rays, medications are reviewed. We will continue to follow the patient, make recommendations along the way. The patient's overall prognosis remains guarded. The patient had been smoking, and I counseled the patient about the importance of smoking cessation, once and for all. We will continue to follow the patient, make recommendations along the way. Labs, x-rays, and medications are reviewed. Time with Patient: Less than 30
--- NOTE | 2024-02-19 14:29 | P.PN ---
Subjective Progress Note Date: 02/19/24 patient is a 63-year-old gentleman with past medical history significant for COPD, CHF who is a transfer from [facility] for evaluation of shortness of breath. Patient initially presented to [facility] for shortness of breath, was found to be in COPD exacerbation and CHF exacerbation. Patient was placed on BiPAP, lab work was suggestive of elevated troponin. Patient was placed on heparin and transferred to [facility]. On evaluation at [facility], patient was lethargic, not able to maintain a conversation. His respiratory status was worsening, patient was intubated was transferred to ICU Initial lab work done in the ER showed WBC 7.1, hemoglobin 15.8, platelet count 315, sodium 141, potassium 5.3, BUN 29, creatinine 0.65, lactate 2.2 troponin 2. 310, proBNP 1400 6/3. Patient seen and examined. WBC 8, hemoglobin 9, platelet count 255, sodium 130, potassium 4.5, BUN 20, creatinine 0.53, glucose 148. Patient was extubated yesterday. Currently doing much better. Still gets short of breath on exertion REVIEW OF SYSTEMS: CONSTITUTIONAL: No fever, no malaise,. CARDIOVASCULAR: No chest pain, no palpitations, no syncope. PULMONARY: No shortness of breath, no cough, GASTROINTESTINAL: No diarrhea, no nausea, no vomiting, no abdominal pain. NEUROLOGICAL: No headaches, no weakness, PHYSICAL EXAMINATION: GENERAL: The patient is alert and oriented x3, not in any acute distress. Well developed, well nourished. HEENT: Pupils are round and equally reacting to light. EOMI. No scleral icterus. No conjunctival pallor. Normocephalic, atraumatic. No pharyngeal erythema. No thyromegaly. CARDIOVASCULAR: S1 and S2 present. No murmurs, rubs, or gallops. PULMONARY: Chest is clear to auscultation, no wheezing or crackles. ABDOMEN: Soft, nontender, nondistended, normoactive bowel sounds. No palpable organomegaly. MUSCULOSKELETAL: No joint swelling or deformity. EXTREMITIES: No cyanosis, clubbing, or pedal edema. NEUROLOGICAL: Gross neurological examination did not reveal any focal deficits. SKIN: No rashes. Assessment and plan Acute hypoxemic hypercapnic aspiratory failure Acute COPD exacerbation Acute CHF exacerbation Hyperkalemia NSTEMI Lactic acidosis Monitor vital signs Monitor CBC Monitor CMP Continue telemetry monitoring Aggressive bronchopulmonary hygiene Continue oxygen supplementation Trend troponins Ordered 2D echo Pharmacy to dose heparin discontinued Continue aspirin, beta-alexander, statin Continue breathing treatments Pulmonology following Cardiology following Labs and medication were reviewed.. Continue same treatment. Continue with symptomatic treatment. Resume home medication. Monitor labs and vitals. DVT and GI prophylaxis. Further recommendations as per clinical course of the patient Dictation was produced using [employer] dictation software. please excuse any grammatical, word or spelling errors. Objective - Vital Signs Vital signs: Vital Signs Temp 98.7 F 02/19/24 08:00 Pulse 83 02/19/24 09:29 Resp 26 H 02/19/24 09:00 BP 125/88 02/19/24 09:00 Pulse Ox 100 02/19/24 09:00 FiO2 35 02/18/24 11:34 Intake & Output 02/18/24 02/19/24 02/19/24 18:59 06:59 18:59 Intake Total 4690.434 7152.884 200 Output Total 730 900 90 Balance 624.678 587.884 110 Weight 63.5 kg Intake: IV 1150 1300 200 Sodium Chloride 0.9% 1, 1150 1300 200 000 ml @ 100 mls/hr IV . Q10H [facility] Rx#:[id number] Intake, IV Titration 204.678 187.884 Amount Heparin Sod,Pork in 0.45% 91.174 187.884 NaCl 25,000 unit In 0.45 % NaCl 1 250ml.bag @ 12 UNITS/KG/HR 8.165 mls/hr IV .Q24H [facility] Rx#: [id number] Norepinephrine 4 mg In 64.720 Sodium Chloride 0.9% 250 ml @ 0.03 MCG/KG/MIN 7. 777 mls/hr IV .Q24H [facility] Rx#:[id number] propofoL 1,000 mg In 48.784 Empty Bag 1 bag @ 15 MCG/ KG/MIN 6.124 mls/hr IV . [id number] [facility] Rx#:[id number] Output: Urine 730 900 90 Other: Voiding Method Indwelling Catheter Indwelling Catheter Indwelling Catheter - Labs CBC & Chem 7: 02/19/24 03:50 02/19/24 03:50 Labs: Abnormal Lab Results - Last 24 Hours (Table) 02/18/24 02/18/24 02/19/24 Range/Units 12:03 19:48 03:50 RBC (4.30-5.90) m/uL Hgb (13.0-17.5) gm/dL MCV (80.0-100.0) fL APTT 35.4 H 42.5 H 52.7 H (22.0-30.0) sec Sodium (137-145) mmol/L Carbon Dioxide (22-30) mmol/L Creatinine (0.66-1.25) mg/dL Glucose (74-99) mg/dL Calcium (8.4-10.2) mg/dL 02/19/24 02/19/24 Range/Units 03:50 03:50 RBC 3.84 L (4.30-5.90) m/uL Hgb 12.9 L (13.0-17.5) gm/dL MCV 106.4 H (80.0-100.0) fL APTT (22.0-30.0) sec Sodium 136 L (137-145) mmol/L Carbon Dioxide 34 H (22-30) mmol/L Creatinine 0.53 L (0.66-1.25) mg/dL Glucose 148 H (74-99) mg/dL Calcium 8.3 L (8.4-10.2) mg/dL
--- NOTE | 2024-02-19 18:13 | CA ---
Transthoracic Echo Report Name: Michael Hou Age: 63 Gender: M : 1960 Exam Date: 02/19/2024 08:01 Exam Location: [facility] Ht (in): 72 Wt (lb): 150 Ordering Physician: Bello Thomas MD Attending/Referring Phys: [id number], William K 9 Handler/ Deputy Jocelyn Morris RDCS Procedure CPT: Indications: chf Cardiac Hx: Technical Quality: Good Contrast 1: Definity Total Dose (mL): 1 Contrast 2: Total Dose (mL): MEASUREMENTS (Male / Female) Normal Values 2D ECHO LV Diastolic Diameter PLAX 4.7 cm 4.2 - 5.9 / 3.9 - 5.3 cm LV Systolic Diameter PLAX 3.6 cm IVS Diastolic Thickness 1.1 cm 0.6 - 1.0 / 0.6 - 0.9 cm LVPW Diastolic Thickness 1.0 cm 0.6 - 1.0 / 0.6 - 0.9 cm LV Relative Wall Thickness 0.4 RV Internal Dim ED PLAX 3.5 cm LA Systolic Diameter LX 3.8 cm 3.0 - 4.0 / 2.7 - 3.8 cm LV Diastolic Volume MOD 4C 116.6 cm??? LV Systolic Volume MOD 4C 68.8 cm??? LV Ejection Fraction MOD 4C 41.0 % LV Cardiac Index MOD 4C 2427.1 cm???/min???m??? LV Diastolic Length 4C 8.4 cm LV Systolic Length 4C 7.6 cm LV Diastolic Volume MOD 2C 137.1 cm??? LV Systolic Volume MOD 2C 85.7 cm??? LV Ejection Fraction MOD 2C 37.5 % LV Cardiac Index MOD 2C 2610.3 cm???/min???m??? LV Diastolic Length 2C 8.8 cm LV Systolic Length 2C 8.1 cm LA Volume 58.7 cm??? 18 - 58 / 22 - 52 cm??? LA Volume Index 31.7 cm???/m??? 16 - 28 cm???/m??? M-MODE Aortic Root Diameter MM 3.4 cm AV Cusp Separation MM 2.1 cm DOPPLER AV Peak Velocity 115.2 cm/s AV Peak Gradient 5.3 mmHg MV Area PHT 3.4 cm??? MR Peak Velocity 528.0 cm/s MR Peak Gradient 111.5 mmHg Mitral E Point Velocity 112.9 cm/s Mitral A Point Velocity 157.5 cm/s Mitral E to A Ratio 0.7 MV Deceleration Time 225.0 ms TR Peak Velocity 303.5 cm/s TR Peak Gradient 36.8 mmHg Right Ventricular Systolic Press 50.9 mmHg FINDINGS Left Ventricle Left ventricular ejection fraction is estimated at 40- %. Left ventricular cavity size normal. Left ventricular wall thickness normal. Mid to distal septumhypokinesis. Apical anterior hypokinesis Right Ventricle Mild right ventricular dilatation. Moderate pulmonary hypertension. Right ventricular systolic pressure estimated at 51 mm hg. Right Atrium Normal right atrial size. Normal right atrial pressure. Left Atrium Mildly increased left atrial volume. No left atrial thrombus or mass present. Mitral Valve Mitral valve thickened. Mild mitral annular calcification. Mild mitral regurgitation. Aortic Valve Trileaflet aortic valve. No aortic valve stenosis or regurgitation. Tricuspid Valve Structurally normal tricuspid valve. Mild tricuspid regurgitation. Pulmonic Valve Structurally normal pulmonic valve. Trace pulmonic regurgitation. Pericardium No pericardial or pleural effusion. Aorta Normal size aortic root and proximal ascending aorta. CONCLUSIONS Moderate LV systolic dysfunction with an ejection fraction of 40% Apical hypokinesis Basal inferior wall is hypokinetic Mild mitral regurgitation Moderate pulmonary hypertension Previewed by: Dr. Louis Carlson MD (Electronically Signed) Final Date: 19 February 2024 18:12
[2024-02-19] MEDS: ATORVASTATIN 80 MG TAB PO SCH (20:21)
[2024-02-19] MEDS: IPRATROPIUM-ALBUTEROL 3 ML NEB ONE (20:59)
[2024-02-19] MEDS: guaiFENesin-DM 100-10MG/5ML 10 ML CUP PO PRN (23:00)
[2024-02-19] MEDS: busPIRone HCl 5 MG TAB PO SCH (23:45)
[2024-02-20] MEDS: SODIUM CHLORIDE 0.9% 1,000 ML IV SCH (05:47)
[2024-02-20 06:49] LABS: Basophils % (A) 0 %; Eosinophils % (A) 0 %; HCT 42.6 % (39.0-53.0); Lymphocytes # (A) 0.7 k/uL (1.0-4.8); Lymphocytes % (A) 8 %; MCH 32.5 pg (25.0-35.0); MCHC 30.5 g/dL (31.0-37.0); MCV 106.6 fL (80.0-100.0); Macrocytosis Moderate; Mean Platelet Volume 7.9; Monocytes # (A) 0.2 k/uL (0-1.0); Monocytes % (A) 3 %; Neutrophils # (A) 7.6 k/uL (1.3-7.7); Neutrophils % (A) 86 %; Platelet Count 292 k/uL (150-450); RDW 12.4 % (11.5-15.5); WBC 8.8 k/uL (3.8-10.6)
[2024-02-20 07:08] LABS: ALT 44 U/L (4-49); AST 38 U/L (17-59); African American GFR (CKD) >90 (>60 ml/min/1.73 sqM); Albumin 2.9 g/dL (3.5-5.0); Alkaline Phosphatase 115 U/L (38-126); Anion Gap 2 mmol/L; Blood Urea Nitrogen 14 mg/dL (9-20); Calcium 8.5 mg/dL (8.4-10.2); Carbon Dioxide 33 mmol/L (22-30); Chloride 101 mmol/L (98-107); Glucose 144 mg/dL (74-99); Magnesium 1.9 mg/dL (1.6-2.3); Non-African American GFR(CKD) >90 (>60 ml/min/1.73 sqM); Phosphorus 2.6 mg/dL (2.5-4.5); Potassium 4.5 mmol/L (3.5-5.1); Sodium 136 mmol/L (137-145); Total Bilirubin 0.4 mg/dL (0.2-1.3); Total Protein 5.4 g/dL (6.3-8.2)
[2024-02-20] MEDS ORDERED: ALBUTEROL NEBULIZED 2.5 MG/3 ML INHALATION SCH (08:00)
--- NOTE | 2024-02-20 08:50 | XR ---
EXAMINATION TYPE: XR chest 1V portable DATE OF EXAM: 02/20/2024 Comparison: 02/19/2024 Clinical History: 63-year-old male tube placement Findings: The heart is upper limits of normal in size. Hyperinflation. Limited by kyphotic positioning. Mild interstitial densities in the bilateral lungs s imilar to prior. No sizable pleural effusion. Corinne unchanged with pain and possible underlying pulmon brian hypertension Impression: COPD with similar mild diffuse bilateral interstitial infiltrates. Possible underlying pulmonary jennifer ry hypertension.
[2024-02-20] MEDS: VENLAFAXINE HCL ER 150 MG CAP PO SCH (08:59)
[2024-02-20] MEDS: MONTELUKAST 10 MG TAB PO SCH (08:59)
[2024-02-20] MEDS: predniSONE 20 MG TAB PO SCH (09:23)
[2024-02-20] MEDS: ALBUTEROL HFA INHALER INHALATION SCH (10:18)
[2024-02-20] MEDS: SYMBICORT 160-4.5 MCG INHALER INHALATION SCH (10:19)
[2024-02-20] MEDS: TIOTROPIUM 2.5 MCG INHALER INHALATION SCH (10:19)
--- NOTE | 2024-02-20 10:50 | P.PN ---
Subjective Progress Note Date: 02/20/24 Principal diagnosis: Respiratory failure. This is a 63-year-old white male seen yesterday at [facility] with symptoms of shortness of breath which has been worsening over the last few days. Patient was evaluated and felt that the patient may have some component of congestive heart failure. He had elevated BNP but relatively unremarkable chest x-ray. Patient was also noted to have elevated troponin then he was transferred to [facility] for cardiac evaluation and possible non-ST elevation myocardial infarction. Patient was started on heparin and he also received antibiotics, IV Lasix, and IV steroids. Brought into the ER and shortly after he arrived, the patient was noted to be in severe respiratory distress. Patient was intubated, mechanically ventilated, admitted to the ICU overnight, and I was asked to see him on consultation. Patient was intubated and mechanically ventilated assist-control rate of 26 tidal volume 450 FiO2 was 50% by cut it down to 35% and PEEP was at 5 ABG on 50% showed a pO2 of 171 pCO2 50 pH of 7.38. Patient was on propofol at 40 mcg/kg/min norepinephrine at 0.07 mcg/kg/min IV fluid 0.9 normal saline at 75 cc/h. He had a negative CT angiogram of the chest on admission negative CT of the brain, I evaluated the patient, patient was arousable, following instructions, hence I proceeded to stopping propofol, and I recommended a short weaning trial with pressure support of 10 and CPAP. Indeed the patient tolerated the weaning trial fairly well, hence I recommended extubation while I am at bedside. Patient will be extubated to BiPAP 12/6/35%. Looking at his initial venous blood gases when the patient a rrived to the ER last night he had a pCO2 of 100 pH of 7.13 and bicarb of 33 point obviously the patient presented with acute hypoxic and hypercapnic respiratory failure. Requiring intubation mechanical ventilation. He was seen by cardiology also while in the ICU, he was seen for his elevated troponins, and the recommendation was to continue heparin over the next 24 hours, start patient on statin, and await echocardiogram report for further recommendation. Progress note dated February 19, 2024. This is a 63-year-old male seen today in room 261. The patient was intubated on February 16, for COPD exacerbation and respiratory failure. The patient was successfully extubated yesterday, February 17. Currently, he is on 2 L of oxygen. He is getting saline at 10 cc an hour. The patient does have mildly audible wheezes, and a very harsh, wet cough. Labs include a white count 8, hemoglobin 12.9, hematocrit 40.8, and a platelet count of 255,000. Sodium is 136, potassium 4.5, chlorides 105, CO2 34, BUN 20, creatinine 0.53. Calcium is 8.3. Sputum sampling is thus far negative. Chest x-ray shows some changes of COPD, with some diffuse atelectasis. Progress note dated February 20, 2024. 63-year-old male seen in room 261. The patient was intubated on February 16 for COPD exacerbation, and respiratory failure. He was successfully extubated on February 17. Currently, he remains on oxygen, 2 L. He is getting saline at 50 cc an hour. Solu-Medrol can be converted to prednisone 40 mg a day. The patient was downgraded yesterday, could be transferred out of the intensive care unit. His white count is 8.8, hemoglobin 13, hematocrit 42.6, and platelet count is normal. Sodium 136, potassium 4.5, chlorides 101, CO2 33, BUN 14, creatinine 0.55. Glucose is 144. Albumin is 2.9. Sputum Gram stain is thus far negative. Chest x-ray shows changes of COPD, with some bilateral interstitial infiltrates. There may be a component of pulmonary hypertension as well. Objective - Vital Signs Vital signs: Vital Signs Temp 98.0 F 02/20/24 08:00 Pulse 98 02/20/24 08:00 Resp 24 02/20/24 08:00 BP 132/80 02/20/24 08:00 Pulse Ox 96 02/20/24 08:00 FiO2 35 02/18/24 11:34 Intake & Output 02/19/24 02/20/24 02/20/24 18:59 06:59 18:59 Intake Total 800 1100 Output Total 415 800 Balance 385 300 Weight 86.8 kg Intake: IV 800 1100 Sodium Chloride 0.9% 1, 800 1100 000 ml @ 100 mls/hr IV . Q10H [facility] Rx#:[id number] Output: Urine 415 800 Other: Voiding Method Indwelling Catheter Indwelling Catheter # Bowel Movements 0 - Exam No acute distress, oriented 3. Currently on 2 L of oxygen. Saturations are 99%. HEENT examination is grossly unremarkable. Mucous membranes are moist. No oral lesions. Neck supple. Full range of motion. No adenopathy thyromegaly or neck vein distention. Cardiovascular examination reveals regular rhythm rate. S1-S2 normal. No S3 or S4. No discernible murmur noted. Heart sounds are distant. Lungs reveal diffuse bilateral inspiratory and expiratory rhonchi. Cough is harsh and wet sounding. Minimal expiratory wheezes. No crackles. Saturations are 96% on 2 L. Abdomen soft with bowel sounds. No masses or tenderness. Extremities are intact. No cyanosis clubbing or edema. Skin is without rash or lesion. Neurologic examination is brief but nonfocal. - Labs CBC & Chem 7: 02/20/24 05:58 02/20/24 05:58 Labs: Abnormal Lab Results - Last 24 Hours (Table) 02/20/24 02/20/24 Range/Units 05:58 05:58 RBC 4.00 L (4.30-5.90) m/uL MCV 106.6 H (80.0-100.0) fL MCHC 30.5 L (31.0-37.0) g/dL Lymphocytes # 0.7 L (1.0-4.8) k/uL Sodium 136 L (137-145) mmol/L Carbon Dioxide 33 H (22-30) mmol/L Creatinine 0.55 L (0.66-1.25) mg/dL Glucose 144 H (74-99) mg/dL Total Protein 5.4 L (6.3-8.2) g/dL Albumin 2.9 L (3.5-5.0) g/dL Microbiology - Last 24 Hours (Table) 02/18/24 01:06 Gram Stain - Final Sputum Sputum Culture - Final Assessment and Plan Assessment: Acute hypoxemic and hypercapnic respiratory failure, requiring intubation on February 16, with successful extubation on February 17. Acute exacerbation of COPD. Possible non-ST segment elevation myocardial infarction. Hypotension, likely related to dehydration. History of deep vein thrombosis, left leg. History of unexplained weight loss. History of migraine cephalgia. History of varicose veins. History of generalized anxiety/depression. Plan: Plan dated February 19, 2024. The patient is seen today in room 261. The patient was intubated on February 16 for respiratory failure, and successfully extubated yesterday, February 17. The patient remains in the intensive care unit, room 261. Labs, x-rays, medications are reviewed. We will continue to follow the patient, make recommendations along the way. The patient's overall prognosis remains guarded. The patient had been smoking, and I counseled the patient about the importance of smoking cessation, once and for all. We will continue to follow the patient, make recommendations along the way. Labs, x-rays, and medications are reviewed. Plan dated February 20, 2024. The patient is seen today in room 261. The patient remains on oxygen at 2 L. Saturations are 96%. The patient is receiving saline at 50 cc an hour. The IV can be discontinued, as the patient is eating and drinking properly. The p atient could be transferred out of the intensive care unit, to the general medical floor. The patient is a receiving Solu-Medrol, and that will be changed to prednisone 40 mg a day. Labs, x-rays, and medications are reviewed. The patient's overall prognosis remains guarded. We will continue to follow the patient, and make recommendations. Time with Patient: Less than 30
--- NOTE | 2024-02-20 12:29 | P.PN ---
Subjective Progress Note Date: 02/20/24 patient is a 63-year-old gentleman with past medical history significant for COPD, CHF who is a transfer from [facility] for evaluation of shortness of breath. Patient initially presented to [facility] for shortness of breath, was found to be in COPD exacerbation and CHF exacerbation. Patient was placed on BiPAP, lab work was suggestive of elevated troponin. Patient was placed on heparin and transferred to [facility]. On evaluation at [facility], patient was lethargic, not able to maintain a conversation. His respiratory status was worsening, patient was intubated was transferred to ICU Initial lab work done in the ER showed WBC 7.1, hemoglobin 15.8, platelet count 315, sodium 141, potassium 5.3, BUN 29, creatinine 0.65, lactate 2.2 troponin 2. 310, proBNP 1400 6/. Patient seen and examined. WBC 8, hemoglobin 9, platelet count 255, sodium 130, potassium 4.5, BUN 20, creatinine 0.53, glucose 148. Patient was extubated yesterday. Currently doing much better. Still gets short of breath on exertion /. Patient seen and examined. 2D echo done showed LV systolic dysfunction with an EF of 40%, apical hypokinesis, basal inferior wall is hypokinetic, mild mitral regurg. Lab work done showed WBC 8.8, hemoglobin 13, platelet count 292, sodium 130, potassium 4.5, BUN 14, creatinine 0.55. Patient is sitting up in the chair, states he feels better. Currently on 2 L of oxygen. Cardiology planning cardiac cath REVIEW OF SYSTEMS: CONSTITUTIONAL: No fever, no malaise,. CARDIOVASCULAR: No chest pain, no palpitations, no syncope. PULMONARY: Short of breath on exertion GASTROINTESTINAL: No diarrhea, no nausea, no vomiting, no abdominal pain. NEUROLOGICAL: No headaches, no weakness, PHYSICAL EXAMINATION: GENERAL: The patient is alert and oriented x3, not in any acute distress. HEENT: Pupils are round and equally reacting to light. EOMI. No scleral icterus. No conjunctival pallor. Normocephalic, atraumatic. No pharyngeal erythema. No thyromegaly. CARDIOVASCULAR: S1 and S2 present. No murmurs, rubs, or gallops. PULMONARY: Coarse breath sound bilaterally, no wheezing or crackles. ABDOMEN: Soft, nontender, nondistended, normoactive bowel sounds. No palpable organomegaly. MUSCULOSKELETAL: No joint swelling or deformity. EXTREMITIES: No cyanosis, clubbing, or pedal edema. NEUROLOGICAL: Gross neurological examination did not reveal any focal deficits. SKIN: No rashes. Assessment and plan Acute hypoxemic hypercapnic aspiratory failure Acute COPD exacerbation Acute CHF exacerbation Hyperkalemia NSTEMI Lactic acidosis Monitor vital signs Monitor CBC Monitor CMP Continue telemetry monitoring Aggressive bronchopulmonary hygiene Continue oxygen supplementation 2D echo done showed LV systolic dysfunction with an EF of 40%, apical hypokinesis, basal inferior wall is hypokinetic, mild mitral regurg Continue aspirin, beta-alexander, statin Continue breathing treatments Pulmonology following Cardiology following, planning cardiac cath once respiratory is improved Labs and medication were reviewed.. Continue same treatment. Continue with symptomatic treatment. Resume home medication. Monitor labs and vitals. DVT and GI prophylaxis. Further recommendations as per clinical course of the patient Dictation was produced using [employer] dictation software. please excuse any grammatical, word or spelling errors. Objective - Vital Signs Vital signs: Vital Signs Temp 98.4 F 02/19/24 20:00 Pulse 96 02/20/24 06:00 Resp 16 02/20/24 06:00 BP 145/90 02/20/24 06:00 Pulse Ox 95 02/20/24 06:00 FiO2 35 02/18/24 11:34 Intake & Output 02/19/24 02/20/24 02/20/24 18:59 06:59 18:59 Intake Total 800 1100 Output Total 415 800 Balance 385 300 Weight 86.8 kg Intake: IV 800 1100 Sodium Chloride 0.9% 1, 800 1100 000 ml @ 100 mls/hr IV . Q10H [facility] Rx#:[id number] Output: Urine 415 800 Other: Voiding Method Indwelling Catheter Indwelling Catheter # Bowel Movements 0 - Labs CBC & Chem 7: 02/20/24 05:58 02/20/24 05:58 Labs: Abnormal Lab Results - Last 24 Hours (Table) 02/20/24 02/20/24 Range/Units 05:58 05:58 RBC 4.00 L (4.30-5.90) m/uL MCV 106.6 H (80.0-100.0) fL MCHC 30.5 L (31.0-37.0) g/dL Lymphocytes # 0.7 L (1.0-4.8) k/uL Sodium 136 L (137-145) mmol/L Carbon Dioxide 33 H (22-30) mmol/L Creatinine 0.55 L (0.66-1.25) mg/dL Glucose 144 H (74-99) mg/dL Total Protein 5.4 L (6.3-8.2) g/dL Albumin 2.9 L (3.5-5.0) g/dL Microbiology - Last 24 Hours (Table) 02/18/24 01:06 Gram Stain - Final Sputum Sputum Culture - Final
--- NOTE | 2024-02-20 13:19 | P.PN ---
Subjective Progress Note Date: 02/20/24 Principal diagnosis: Acute coronary syndrome The patient is a pleasant 63-year-old gentleman with a past medical history significant for COPD as well as hypertension and dyslipidemia and history of DVT was admitted to the hospital with acute hypoxic respiratory failure and he was diagnosed with COPD exacerbation and was found to have abnormal cardiac enzymes with elevated troponin with no EKG changes. He was treated medically. Echocardiogram was ordered and still pending. February 19, 2024 The patient was seen and evaluated this morning. He is asymptomatic with no pain in the chest but continues to have shortness of breath with exertion and continues to be hypoxic on oxygen. Eventually once he is stable from the COPD he need to undergo coronary angiogram to rule out severe CAD. The abnormal troponin also could be because of the hypoxemia and could be secondary to type II myocardial infarction. The echo still pending. Currently he is not on aspirin. I am going to start him on aspirin and start him on small dose of beta-alexander as well. The examination is remarkable for diminished breathing sounds bilaterally and regular rate and rhythm with a distant heart sounds and no edema was noted February 20, 2024 The patient was seen and evaluated this morning. He seems to be asymptomatic at this point. The echo showed impaired LV function with wall motion abnormalities concerning for severe underlying coronary artery disease and with that being said the patient will be scheduled to undergo a heart catheterization in the next 24 hours. Currently he reports no pain in the chest but continues to have shortness of breath. The examination is remarkable for stable vital signs with regular rate and rhythm and soft systolic murmur and diminished breathing sounds bilaterally. Assessment Acute hypoxic hypercapnic respiratory failure COPD exacerbation Evidence of myocardial injury secondary to type I versus type II IN Multiple comorbid conditions History of DVT Plan Continue current medical regimen Heparin was stopped because is more than 48 hours since it was started Proceed with coronary angiogram tomorrow Objective - Vital Signs Vital signs: Vital Signs Temp 98.0 F 02/20/24 08:00 Pulse 98 02/20/24 08:00 Resp 24 02/20/24 08:00 BP 132/80 02/20/24 08:00 Pulse Ox 96 02/20/24 08:00 FiO2 35 02/18/24 11:34 Intake & Output 02/19/24 02/20/24 02/20/24 18:59 06:59 18:59 Intake Total 800 1100 Output Total 415 800 Balance 385 300 Weight 86.8 kg Intake: IV 800 1100 Sodium Chloride 0.9% 1, 800 1100 000 ml @ 100 mls/hr IV . Q10H [facility] Rx#:[id number] Output: Urine 415 800 Other: Voiding Method Indwelling Catheter Indwelling Catheter # Bowel Movements 0 - Labs CBC & Chem 7: 02/20/24 05:58 02/20/24 05:58 Labs: Abnormal Lab Results - Last 24 Hours (Table) 02/20/24 02/20/24 Range/Units 05:58 05:58 RBC 4.00 L (4.30-5.90) m/uL MCV 106.6 H (80.0-100.0) fL MCHC 30.5 L (31.0-37.0) g/dL Lymphocytes # 0.7 L (1.0-4.8) k/uL Sodium 136 L (137-145) mmol/L Carbon Dioxide 33 H (22-30) mmol/L Creatinine 0.55 L (0.66-1.25) mg/dL Glucose 144 H (74-99) mg/dL Total Protein 5.4 L (6.3-8.2) g/dL Albumin 2.9 L (3.5-5.0) g/dL Microbiology - Last 24 Hours (Table) 02/18/24 01:06 Gram Stain - Final Sputum Sputum Culture - Final
--- NOTE | 2024-02-21 07:08 | P.PN ---
Subjective Progress Note Date: 02/21/24 Principal diagnosis: Acute coronary syndrome The patient is a pleasant 63-year-old gentleman with a past medical history significant for COPD as well as hypertension and dyslipidemia and history of DVT was admitted to the hospital with acute hypoxic respiratory failure and he was diagnosed with COPD exacerbation and was found to have abnormal cardiac enzymes with elevated troponin with no EKG changes. He was treated medically. Echocardiogram was ordered and still pending. February 19, 2024 The patient was seen and evaluated this morning. He is asymptomatic with no pain in the chest but continues to have shortness of breath with exertion and continues to be hypoxic on oxygen. Eventually once he is stable from the COPD he need to undergo coronary angiogram to rule out severe CAD. The abnormal troponin also could be because of the hypoxemia and could be secondary to type II myocardial infarction. The echo still pending. Currently he is not on aspirin. I am going to start him on aspirin and start him on small dose of beta-alexander as well. The examination is remarkable for diminished breathing sounds bilaterally and regular rate and rhythm with a distant heart sounds and no edema was noted February 20, 2024 The patient was seen and evaluated this morning. He seems to be asymptomatic at this point. The echo showed impaired LV function with wall motion abnormalities concerning for severe underlying coronary artery disease and with that being said the patient will be scheduled to undergo a heart catheterization in the next 24 hours. Currently he reports no pain in the chest but continues to have shortness of breath. The examination is remarkable for stable vital signs with regular rate and rhythm and soft systolic murmur and diminished breathing sounds bilaterally. February 21, 2024 The patient was seen and evaluated this morning. He seems to be stable from the cardiac standpoint of view but he continues to be hypoxic requiring 2 L of oxygen. The plan is to pursue with a heart catheterization later on today or early afternoon. He is not having any chest pain or chest discomfort. The echo finding concerning for severe underlying coronary artery disease. He is on aspirin and beta-alexander and statin. From the cardiovascular standpoint of view, I would continue the current medical regimen and proceed with heart catheterization later on today. The examination is remarkable for stable vital signs with regular rate and rhythm and diminished breathing sounds bilaterally. Assessment Acute hypoxic hypercapnic respiratory failure COPD exacerbation Evidence of myocardial injury secondary to type I versus type II CO Multiple comorbid conditions History of DVT Plan Continue current medical regimen Heparin was stopped because is more than 48 hours since it was started Proceed with coronary angiogram Objective - Vital Signs Vital signs: Vital Signs Temp 97.8 F 02/21/24 04:00 Pulse 82 02/20/24 22:00 Resp 21 02/21/24 04:00 BP 122/73 02/21/24 04:00 Pulse Ox 95 02/21/24 04:00 FiO2 35 02/18/24 11:34 Intake & Output 02/20/24 02/21/24 02/21/24 18:59 06:59 18:59 Intake Total 1000 750 Output Total 750 Balance 1000 0 Weight 87.4 kg Intake: IV 1000 Sodium Chloride 0.9% 1, 1000 000 ml @ 100 mls/hr IV . Q10H ARYA Rx#:[id number] Intake, IV Titration 750 Amount Sodium Chloride 0.9% 1, 750 000 ml @ 50 mls/hr IV . Q20H ARYA Rx#:[id number] Output: Urine 750 Other: # Voids 2 # Bowel Movements 1 - Labs CBC & Chem 7: 02/20/24 05:58 02/20/24 05:58 Labs: Abnormal Lab Results - Last 24 Hours (Table) 02/20/24 Range/Units 05:58 Sodium 136 L (137-145) mmol/L Carbon Dioxide 33 H (22-30) mmol/L Creatinine 0.55 L (0.66-1.25) mg/dL Glucose 144 H (74-99) mg/dL Total Protein 5.4 L (6.3-8.2) g/dL Albumin 2.9 L (3.5-5.0) g/dL Microbiology - Last 24 Hours (Table) 02/18/24 01:06 Gram Stain - Final Sputum Sputum Culture - Final
[2024-02-21] MEDS ORDERED: NITROGLYCERIN SL TABS 0.4 MG TAB SUBLINGUAL PRN (11:01)
[2024-02-21] MEDS ORDERED: ALPRAZolam 0.5 MG TAB PO PRN (11:01)
[2024-02-21] MEDS ORDERED: ALPRAZolam 0.25 MG TAB PO PRN (11:01)
--- NOTE | 2024-02-21 11:25 | P.PN ---
Subjective Progress Note Date: 02/21/24 Principal diagnosis: Respiratory failure. This is a 63-year-old white male seen yesterday at [facility] with symptoms of shortness of breath which has been worsening over the last few days. Patient was evaluated and felt that the patient may have some component of congestive heart failure. He had elevated BNP but relatively unremarkable chest x-ray. Patient was also noted to have elevated troponin then he was transferred to [facility] for cardiac evaluation and possible non-ST elevation myocardial infarction. Patient was started on heparin and he also received antibiotics, IV Lasix, and IV steroids. Brought into the ER and shortly after he arrived, the patient was noted to be in severe respiratory distress. Patient was intubated, mechanically ventilated, admitted to the ICU overnight, and I was asked to see him on consultation. Patient was intubated and mechanically ventilated assist-control rate of 26 tidal volume 450 FiO2 was 50% by cut it down to 35% and PEEP was at 5 ABG on 50% showed a pO2 of 171 pCO2 50 pH of 7.38. Patient was on propofol at 40 mcg/kg/min norepinephrine at 0.07 mcg/kg/min IV fluid 0.9 normal saline at 75 cc/h. He had a negative CT angiogram of the chest on admission negative CT of the brain, I evaluated the patient, patient was arousable, following instructions, hence I proceeded to stopping propofol, and I recommended a short weaning trial with pressure support of 10 and CPAP. Indeed the patient tolerated the weaning trial fairly well, hence I recommended extubation while I am at bedside. Patient will be extubated to BiPAP 12/6/35%. Looking at his initial venous blood gases when the patient a rrived to the ER last night he had a pCO2 of 100 pH of 7.13 and bicarb of 33 point obviously the patient presented with acute hypoxic and hypercapnic respiratory failure. Requiring intubation mechanical ventilation. He was seen by cardiology also while in the ICU, he was seen for his elevated troponins, and the recommendation was to continue heparin over the next 24 hours, start patient on statin, and await echocardiogram report for further recommendation. Progress note dated February 19, 2024. This is a 63-year-old male seen today in room 261. The patient was intubated on February 16, for COPD exacerbation and respiratory failure. The patient was successfully extubated yesterday, February 17. Currently, he is on 2 L of oxygen. He is getting saline at 10 cc an hour. The patient does have mildly audible wheezes, and a very harsh, wet cough. Labs include a white count 8, hemoglobin 12.9, hematocrit 40.8, and a platelet count of 255,000. Sodium is 136, potassium 4.5, chlorides 105, CO2 34, BUN 20, creatinine 0.53. Calcium is 8.3. Sputum sampling is thus far negative. Chest x-ray shows some changes of COPD, with some diffuse atelectasis. Progress note dated February 20, 2024. 63-year-old male seen in room 261. The patient was intubated on February 16 for COPD exacerbation, and respiratory failure. He was successfully extubated on February 17. Currently, he remains on oxygen, 2 L. He is getting saline at 50 cc an hour. Solu-Medrol can be converted to prednisone 40 mg a day. The patient was downgraded yesterday, could be transferred out of the intensive care unit. His white count is 8.8, hemoglobin 13, hematocrit 42.6, and platelet count is normal. Sodium 136, potassium 4.5, chlorides 101, CO2 33, BUN 14, creatinine 0.55. Glucose is 144. Albumin is 2.9. Sputum Gram stain is thus far negative. Chest x-ray shows changes of COPD, with some bilateral interstitial infiltrates. There may be a component of pulmonary hypertension as well. Progress note dated February 21, 2024. 63-year-old male seen today in room 261. The patient continues on oxygen, by nasal cannula 2 L. He is not receiving any IV fluids. The patient is scheduled to have a heart catheterization later today. From the pulmonary standpoint, the patient is doing better. His breathing is much improved. He denies any worsening or more unusual shortness of breath, cough, wheezing, chest tightness, or phlegm production. He is not having any chest pain. No new labs today. Objective - Vital Signs Vital signs: Vital Signs Temp 97.8 F 02/21/24 04:00 Pulse 82 02/20/24 22:00 Resp 21 02/21/24 04:00 BP 122/73 02/21/24 04:00 Pulse Ox 90 L 02/21/24 07:47 FiO2 35 02/18/24 11:34 Intake & Output 02/20/24 02/21/24 02/21/24 18:59 06:59 18:59 Intake Total 1000 750 Output Total 750 Balance 1000 0 Weight 87.4 kg Intake: IV 1000 Sodium Chloride 0.9% 1, 1000 000 ml @ 100 mls/hr IV . Q10H ARYA Rx#:[id number] Intake, IV Titration 750 Amount Sodium Chloride 0.9% 1, 750 000 ml @ 50 mls/hr IV . Q20H ARYA Rx#:[id number] Output: Urine 750 Other: # Voids 2 # Bowel Movements 1 - Exam No acute distress, oriented 3. Currently on 2 L of oxygen. Saturations are 99%. HEENT examination is grossly unremarkable. Mucous membranes are moist. No oral lesions. Neck supple. Full range of motion. No adenopathy thyromegaly or neck vein distention. Cardiovascular examination reveals regular rhythm rate. S1-S2 normal. No S3 or S4. No discernible murmur noted. Heart sounds are distant. Heart rate is 82 bpm. Lungs reveal diffuse bilateral inspiratory and expiratory rhonchi. Cough is harsh and wet sounding. Minimal expiratory wheezes. No crackles. Saturations are 95 % on 2 L. Abdomen soft with bowel sounds. No masses or tenderness. Extremities are intact. No cyanosis clubbing or edema. Skin is without rash or lesion. Neurologic examination is brief but nonfocal. - Labs CBC & Chem 7: 02/20/24 05:58 02/20/24 05:58 Labs: Microbiology - Last 24 Hours (Table) 02/18/24 01:06 Gram Stain - Final Sputum Sputum Culture - Final Assessment and Plan Assessment: Acute hypoxemic and hypercapnic respiratory failure, requiring intubation on February 16, with successful extubation on February 17. Acute exacerbation of COPD. Possible non-ST segment elevation myocardial infarction. Hypotension, likely related to dehydration. History of deep vein thrombosis, left leg. History of unexplained weight loss. History of migraine cephalgia. History of varicose veins. History of generalized anxiety/depression. Plan: Plan dated February 19, 2024. The patient is seen today in room 261. The patient was intubated on February 16 for respiratory failure, and successfully extubated yesterday, February 17. The patient remains in the intensive care unit, room 261. Labs, x-rays, medications are reviewed. We will continue to follow the patient, make recommendations along the way. The patient's overall prognosis remains guarded. The patient had been smoking, and I counseled the patient about the importance of smoking cessation, once and for all. We will continue to follow the patient, make recommendations along the way. Labs, x-rays, and medications are reviewed. Plan dated February 20, 2024. The patient is seen today in room 261. The patient remains on oxygen at 2 L. Saturations are 96%. The patient is receiving saline at 50 cc an hour. The IV can be discontinued, as the patient is eating and drinking properly. The patient could be transferred out of the intensive care unit, to the general medical floor. The patient is a receiving Solu-Medrol, and that will be changed to prednisone 40 mg a day. Labs, x-rays, and medications are reviewed. The patient's overall prognosis remains guarded. We will continue to follow the patient, and make recommendations. And dated February 21, 2024. The patient will have a cardiac catheterization later today. He did have an elevated troponin, when he initially presented. From the pulmonary standpoint, he is doing much better. The patient could be discharged out of the intensive care unit. Labs, x-rays, and medications are reviewed. The patient's Solu- Medrol was converted to prednisone 40 mg a day. We will continue to follow make recommendations. No additional recommendations are made at this time. The patient is not receiving any IV fluids. He is on 2 L of oxygen. Time with Patient: Less than 30
[2024-02-21] MEDS: ASPIRIN 81 MG PO ONE (13:29)
[2024-02-21] MEDS: IV FLUID CONTINUATION 1,000 ML IV ONE (13:30)
[2024-02-21] MEDS: MIDAZOLAM 2 MG/2 ML VIAL IVP ONE (14:08)
[2024-02-21] MEDS: LIDOCAINE 1% INJ 10MG/ML (20 ML MDV) SQ ONE (14:14)
[2024-02-21] MEDS: VERAPAMIL SYRINGE (5 MG/10 ML) INTRAARTER ONE (14:15)
[2024-02-21] MEDS: HEPARIN SODIUM 1,000 UN/ML (10ML VL) IV ONE (14:20)
[2024-02-21] MEDS: IOPAMIDOL-370 200ML BTL INJ ONE (14:30)
[2024-02-21] MEDS ORDERED: RX INFO: IV CONTRAST WAS GIVEN 1 EACH MISC MISCELLANE PRN (14:33)
--- NOTE | 2024-02-21 14:40 | P.PCN ---
Date of Procedure: 02/21/24 Operative Findings: CARDIAC CATHETERIZATION PERFORMING PHYSICIAN: Ankur Novak MD, RPVI PROCEDURE PERFORMED: 1. Selective right and left coronary angiogram 2. Left heart catheterization 3. Ultrasound-guided access of the right radial artery INDICATION: Acute non-ST elevation myocardial infarction COMPLICATION: None APPROACH: Right radial artery LEVEL OF SEDATION: Moderate with a sedation length of 18 minutes PROCEDURE DESCRIPTION: After obtaining an informed consent, the patient was brought to cardiac produce laborer. Local anesthesia was performed using lidocaine subcutaneously. The right radial artery was cannulated using Seldinger technique, the guidewire passed easily, following that we advanced a 5-Samoan sheath dilator assembly, the wire and dilator were removed and sheath was flushed. Following that, 2 mg of verapamil along with 5000 unit heparin were given. Selective right and left coronary angiogram using a 6-Samoan JR4 and JL 3.5 catheters. Following that we did left heart catheterization using 6-Samoan pigtail catheter. The procedure was completed there was no complication. SELECTIVE CORONARY ANGIOGRAM: The right coronary artery: Large-caliber vessel and a dominant vessel and RCA the study is chronically occluded and fills by contralateral collaterals. Left main: Has mild disease only The left circumflex: Large-caliber vessel nondominant vessel and appears to be angiographically normal and gives rise into a large OM branch which appears to be normal The left anterior descending artery: Large caliber vessel. It has mild disease only. Gives rise into large diagonal branch which seems to be normal HEMODYNAMICS: LVEDP was 14 mmHg with no gradient was identified across aortic valve CONCLUSION: 1. Chronic total occlusion of the RCA which fills by contralateral collateral 2. Mild disease involving the left coronary system 3. Normal left-sided filling pressure POSTPROCEDURE MANAGEMENT: Medical treatment
--- NOTE | 2024-02-21 14:48 | P.PN ---
Progress Note - Text Progress Note Date: 02/21/24 patient is a 63-year-old gentleman with past medical history significant for COPD, CHF who is a transfer from [facility] for evaluation of shortness of breath. Patient initially presented to [facility] for shortness of breath, was found to be in COPD exacerbation and CHF exacerbation. Patient was placed on BiPAP, lab work was suggestive of elevated troponin. Patient was placed on heparin and transferred to [facility]. On evaluation at [facility], patient was lethargic, not able to maintain a conversation. His respiratory status was worsening, patient was intubated was transferred to ICU Initial lab work done in the ER showed WBC 7.1, hemoglobin 15.8, platelet count 315, sodium 141, potassium 5.3, BUN 29, creatinine 0.65, lactate 2.2 troponin 2.310, proBNP 1400 6/3. Patient seen and examined. WBC 8, hemoglobin 9, platelet count 255, sodium 130, potassium 4.5, BUN 20, creatinine 0.53, glucose 148. Patient was extubated yesterday. Currently doing much better. Still gets short of breath on exertion /. Patient seen and examined. 2D echo done showed LV systolic dysfunction with an EF of 40%, apical hypokinesis, basal inferior wall is hypokinetic, mild mitral regurg. Lab work done showed WBC 8.8, hemoglobin 13, platelet count 292, sodium 130, potassium 4.5, BUN 14, creatinine 0.55. Patient is sitting up in the chair, states he feels better. Currently on 2 L of oxygen. Cardiology planning cardiac cath February 20: ICU. No chest pain. Breathing stable. Saw the patient this afternoon. Pending cardiac catheterization. Active Medications Albuterol Sulfate (Albuterol Hfa Inhaler) 2 puff INHALATION RT-QID [facility] [place] Last Admin: 02/21/24 12:14 Dose: 2 puff Albuterol Sulfate (Albuterol Hfa Inhaler) 2 puff INHALATION RT-Q2H PRN PRN Reason: Shortness Of Breath Or Wheezing Alprazolam (Alprazolam 0.25 Mg Tab) 0.25 mg PO Q6HR PRN PRN Reason: Mild Anxiety Alprazolam (Alprazolam 0.5 Mg Tab) 0.5 mg PO Q6HR PRN PRN Reason: Moderate Anxiety Aspirin (Aspirin 81 Mg) 81 mg PO DAILY [facility] Last Admin: 02/21/24 10:13 Dose: 81 mg Atorvastatin Calcium (Atorvastatin 80 Mg Tab) 80 mg PO HS [facility] [place] Last Admin: 02/20/24 20:02 Dose: 80 mg Budesonide/Formoterol Fumarate (Symbicort 160-4.5 Mcg Inhaler) 2 puff INHALATION RT-BID [facility] [place] Last Admin: 02/21/24 07:46 Dose: 2 puff Buspirone HCl (Buspirone Hcl 5 Mg Tab) 5 mg PO BID [facility] [place] Last Admin: 02/21/24 10:12 Dose: 5 mg Guaifenesin/Dextromethorphan (Guaifenesin-Dm 100-10mg/5ml 10 Ml Cup) 10 ml PO Q6HR PRN PRN Reason: Cough Last Admin: 02/20/24 06:09 Dose: 10 ml Hydromorphone HCl (Hydromorphone 1 Mg/Ml 1 Ml Syringe) 1 mg IVP Q3H PRN PRN Reason: Pain Last Admin: 02/18/24 03:55 Dose: 1 mg Heparin Sodium (Porcine) 10, (000 unit/ Sodium Chloride) 1,001 mls @ 999 mls/hr IRRIGATION ONCE PRN PRN Reason: INTRA-OP Stop: 02/22/24 23:00 Heparin Sodium (Porcine) 2,500 (unit/ Sodium Chloride) 250.5 mls @ 250 mls/hr IRRIGATION ONCE PRN PRN Reason: INTRA-OP Stop: 02/22/24 23:00 Sodium Chloride (Saline 0.9%) 1,000 mls @ 75 mls/hr IV .[id number] [facility] Stop: 02/21/24 19:46 Metoprolol Tartrate (Metoprolol Tartrate 12.5 Mg Tab) 12.5 mg PO BID [facility] [place] Last Admin: 02/21/24 10:12 Dose: 12.5 mg Miscellaneous Information (Rx Info: Iv Contrast Was Given 1 Each Misc) 1 each MISCELLANE DAILY PRN PRN Reason: Per Protocol Stop: 02/23/24 14:34 Montelukast Sodium (Montelukast 10 Mg Tab) 10 mg PO DAILY [facility] [place] Last Admin: 02/21/24 10:12 Dose: 10 mg Naloxone HCl (Naloxone 0.4 Mg/Ml 1 Ml Vial) 0.2 mg IV Q2M PRN PRN Reason: Opioid Reversal Nitroglycerin (Nitroglycerin Sl Tabs 0.4 Mg Tab) 0.4 mg SUBLINGUAL Q5M PRN PRN Reason: Chest Pain Pantoprazole Sodium (Pantoprazole 40 Mg/10 Ml Vial) 40 mg IV DAILY [facility] [place] Last Admin: 02/21/24 10:11 Dose: 40 mg Prednisone (Prednisone 20 Mg Tab) 40 mg PO DAILY [facility] [place] Last Admin: 02/21/24 10:11 Dose: 40 mg Tiotropium [place] (Tiotropium 2.5 Mcg Inhaler) 2 puff INHALATION RT-DAILY [facility] [place] Last Admin: 02/21/24 07:47 Dose: 2 puff Venlafaxine HCl (Venlafaxine Hcl Er 150 Mg Cap) 150 mg PO DAILY [facility] [place] Last Admin: 02/21/24 10:12 Dose: 150 mg On examination: VITAL SIGNS: [97.8, 21, 122 x 73, 95% on 2 L] GENERAL APPEARANCE: Reclining in bed, comfortable. HEENT: Normal external appearance of nose and ear. Oral cavity normal EYES: Pupils equal. Conjunctiva normal. NECK: JVD not raised. Mass not palpable. RESPIRATORY: Respiratory effort normal. Lungs decreased breath sound. CARDIOVASCULAR: First and second sounds normal. No edema. ABDOMEN: Soft. Liver and spleen not palpable. No tenderness. No mass palpable. PSYCHIATRY: Alert and oriented x3. Mood and affect normal. INVESTIGATIONS, reviewed in the clinical context: February 19: White count 8.8 hemoglobin 13 platelets 292 sodium 136 potassium 4.5 BUN 14 creatinine 0.55 Troponin 2.3 2D echocardiogram [EF 40%] moderate pulmonary hypertension. Assessment and plan -Acute hypoxemic hypercapnic aspiratory failure, from COPD requiring intubation on February 16 extubated on February 17 Oxygen 2 L -Acute COPD exacerbation, in a smoker Ventolin 2 puffs 4 times daily. Symbicort. Spiriva. -Acute CHF exacerbation, from systolic dysfunction EF 40% Lopressor. -IV heparin monitoring Follow PTT -Hyperkalemia Corrected -Acute NSTEMI Lopressor. Aspirin Pending cardiac catheterization this afternoon -Depression anxiety BuSpar. Effexor. -Lactic acidosis-type II Full code Pending cardiac catheterization this afternoon. Discussed
[2024-02-21] MEDS: SODIUM CHLORIDE 0.9% 1,000 ML IV SCH (15:00)
[2024-02-21] MEDS: ATORVASTATIN 80 MG TAB PO STA (16:30)
[2024-02-22 06:04] LABS: Basophils % (A) 0 %; Eosinophils # (A) 0.1 k/uL (0-0.7); Eosinophils % (A) 1 %; HCT 40.9 % (39.0-53.0); HGB 13.7 gm/dL (13.0-17.5); Lymphocytes # (A) 1.5 k/uL (1.0-4.8); Lymphocytes % (A) 10 %; MCH 34.8 pg (25.0-35.0); MCHC 33.6 g/dL (31.0-37.0); MCV 103.8 fL (80.0-100.0); Macrocytosis Slight; Mean Platelet Volume 8.4; Monocytes # (A) 0.6 k/uL (0-1.0); Monocytes % (A) 5 %; Neutrophils # (A) 11.6 k/uL (1.3-7.7); Neutrophils % (A) 83 %; Platelet Count 246 k/uL (150-450); RBC 3.94 m/uL (4.30-5.90); RDW 12.7 % (11.5-15.5)
[2024-02-22] MEDS ORDERED: HEPARIN SODIUM,PORCINE (1 ML) 2,500 UNIT in SODIUM CHLORIDE 0.9% 250 ML IRRIGATION PRN (07:00)
[2024-02-22] MEDS ORDERED: HEPARIN SODIUM,PORCINE 10,000 UNIT in SODIUM CHLORIDE 0.9% 1,000 ML IRRIGATION PRN (07:00)
[2024-02-22 07:05] LABS: African American GFR (CKD) >90 (>60 ml/min/1.73 sqM); Anion Gap 1 mmol/L; Blood Urea Nitrogen 15 mg/dL (9-20); Carbon Dioxide 33 mmol/L (22-30); Chloride 97 mmol/L (98-107); Glucose 87 mg/dL (74-99); Magnesium 1.9 mg/dL (1.6-2.3); Non-African American GFR(CKD) >90 (>60 ml/min/1.73 sqM); Potassium 3.8 mmol/L (3.5-5.1); Sodium 131 mmol/L (137-145)
--- NOTE | 2024-02-22 07:13 | P.PN ---
Subjective Progress Note Date: 02/22/24 Principal diagnosis: Acute coronary syndrome The patient is a pleasant 63-year-old gentleman with a past medical history significant for COPD as well as hypertension and dyslipidemia and history of DVT was admitted to the hospital with acute hypoxic respiratory failure and he was diagnosed with COPD exacerbation and was found to have abnormal cardiac enzymes with elevated troponin with no EKG changes. He was treated medically. Echocardiogram was ordered and still pending. February 19, 2024 The patient was seen and evaluated this morning. He is asymptomatic with no pain in the chest but continues to have shortness of breath with exertion and continues to be hypoxic on oxygen. Eventually once he is stable from the COPD he need to undergo coronary angiogram to rule out severe CAD. The abnormal troponin also could be because of the hypoxemia and could be secondary to type II myocardial infarction. The echo still pending. Currently he is not on aspirin. I am going to start him on aspirin and start him on small dose of beta-alexander as well. The examination is remarkable for diminished breathing sounds bilaterally and regular rate and rhythm with a distant heart sounds and no edema was noted February 20, 2024 The patient was seen and evaluated this morning. He seems to be asymptomatic at this point. The echo showed impaired LV function with wall motion abnormalities concerning for severe underlying coronary artery disease and with that being said the patient will be scheduled to undergo a heart catheterization in the next 24 hours. Currently he reports no pain in the chest but continues to have shortness of breath. The examination is remarkable for stable vital signs with regular rate and rhythm and soft systolic murmur and diminished breathing sounds bilaterally. February 21, 2024 The patient was seen and evaluated this morning. He seems to be stable from the cardiac standpoint of view but he continues to be hypoxic requiring 2 L of oxygen. The plan is to pursue with a heart catheterization later on today or early afternoon. He is not having any chest pain or chest discomfort. The echo finding concerning for severe underlying coronary artery disease. He is on aspirin and beta-alexander and statin. From the cardiovascular standpoint of view, I would continue the current medical regimen and proceed with heart catheterization later on today. The examination is remarkable for stable vital signs with regular rate and rhythm and diminished breathing sounds bilaterally. February 22, 2024 The patient was seen and evaluated this morning. He underwent a heart catheterization yesterday and that revealed chronic total occlusion of the RCA which fills by contralateral collateral and mild to moderate disease involving the left coronary system. Maximize medical treatment was advised. With that being said he is on aspirin and beta-alexander and statin we will continue that. With the ejection fraction being about 40% I would consider adding lisinopril at 2.5 mg p.o. daily giving the soft blood pressure and tomorrow possibly considering adding Aldactone to the current medical regimen. He is still hypoxic requiring oxygen. No pain in the chest. The examination is remarkable for stable vital signs with soft blood pressure and bilateral expiratory wheezing appears to be very mild and regular rate and rhythm. Assessment CAD as described above Cardiomyopathy with a EF around 40% Acute hypoxic hypercapnic respiratory failure COPD exacerbation Evidence of myocardial injury secondary to type I versus type II SC Multiple comorbid conditions History of DVT Plan Continue current medical regimen Continue the current medical regimen including aspirin and statin and beta- alexander Add small dose of lisinopril to the current medical regimen in the light of cardiomyopathy Consider adding Aldactone in the next 24 to 48 hours Follow-up with the patient Objective - Vital Signs Vital signs: Vital Signs Temp 98 F 02/22/24 04:00 Pulse 87 02/22/24 04:00 Resp 15 02/22/24 04:00 BP 106/71 02/22/24 04:00 Pulse Ox 94 L 02/22/24 04:00 FiO2 35 02/18/24 11:34 Intake & Output 02/21/24 02/22/24 02/22/24 18:59 06:59 18:59 Intake Total 125 1285 Output Total 900 Balance 125 385 Weight 65.4 kg Intake: IV 125 925 Sodium Chloride 0.9% 1, 75 925 000 ml @ 75 mls/hr IV . [id number] [facility] Rx#:[id number] Oral 360 Output: Urine 900 - Labs CBC & Chem 7: 02/22/24 05:41 02/22/24 05:41 Labs: Abnormal Lab Results - Last 24 Hours (Table) 02/22/24 02/22/24 Range/Units 05:41 05:41 WBC 14.0 H (3.8-10.6) k/uL RBC 3.94 L (4.30-5.90) m/uL MCV 103.8 H (80.0-100.0) fL Neutrophils # 11.6 H (1.3-7.7) k/uL Sodium 131 L (137-145) mmol/L Chloride 97 L (98-107) mmol/L Carbon Dioxide 33 H (22-30) mmol/L Creatinine 0.45 L (0.66-1.25) mg/dL Calcium 8.0 L (8.4-10.2) mg/dL
[2024-02-22] MEDS ORDERED: Potassium Replacement Protocol 1 EACH MISC MISCELLANE PRN (07:14)
--- NOTE | 2024-02-22 07:37 | XR ---
EXAMINATION TYPE: XR chest 1V portable DATE OF EXAM: 02/22/2024 Comparison: 02/20/2024 Clinical History: 63-year-old male o2 dependent Findings: Heart normal size. Diffuse interstitial density persists, possibly with slight worsening. Large right and left main pulmonary arteries suggesting pulmonary artery hypertension. Possible trace right effu demarcus. Impression: COPD with ongoing mild diffuse interstitial infiltrates.
[2024-02-22] MEDS: POTASSIUM CHLORIDE ER 20 MEQ TAB.ER PO SCH (09:01)
--- NOTE | 2024-02-22 11:06 | P.PN ---
Subjective Progress Note Date: 02/22/24 Principal diagnosis: Respiratory failure. This is a 63-year-old white male seen yesterday at [facility] with symptoms of shortness of breath which has been worsening over the last few days. Patient was evaluated and felt that the patient may have some component of congestive heart failure. He had elevated BNP but relatively unremarkable chest x-ray. Patient was also noted to have elevated troponin then he was transferred to [facility] for cardiac evaluation and possible non-ST elevation myocardial infarction. Patient was started on heparin and he also received antibiotics, IV Lasix, and IV steroids. Brought into the ER and shortly after he arrived, the patient was noted to be in severe respiratory distress. Patient was intubated, mechanically ventilated, admitted to the ICU overnight, and I was asked to see him on consultation. Patient was intubated and mechanically ventilated assist-control rate of 26 tidal volume 450 FiO2 was 50% by cut it down to 35% and PEEP was at 5 ABG on 50% showed a pO2 of 171 pCO2 50 pH of 7.38. Patient was on propofol at 40 mcg/kg/min norepinephrine at 0.07 mcg/kg/min IV fluid 0.9 normal saline at 75 cc/h. He had a negative CT angiogram of the chest on admission negative CT of the brain, I evaluated the patient, patient was arousable, following instructions, hence I proceeded to stopping propofol, and I recommended a short weaning trial with pressure support of 10 and CPAP. Indeed the patient tolerated the weaning trial fairly well, hence I recommended extubation while I am at bedside. Patient will be extubated to BiPAP 12/6/35%. Looking at his initial venous blood gases when the patient a rrived to the ER last night he had a pCO2 of 100 pH of 7.13 and bicarb of 33 point obviously the patient presented with acute hypoxic and hypercapnic respiratory failure. Requiring intubation mechanical ventilation. He was seen by cardiology also while in the ICU, he was seen for his elevated troponins, and the recommendation was to continue heparin over the next 24 hours, start patient on statin, and await echocardiogram report for further recommendation. Progress note dated February 19, 2024. This is a 63-year-old male seen today in room 261. The patient was intubated on February 16, for COPD exacerbation and respiratory failure. The patient was successfully extubated yesterday, February 17. Currently, he is on 2 L of oxygen. He is getting saline at 10 cc an hour. The patient does have mildly audible wheezes, and a very harsh, wet cough. Labs include a white count 8, hemoglobin 12.9, hematocrit 40.8, and a platelet count of 255,000. Sodium is 136, potassium 4.5, chlorides 105, CO2 34, BUN 20, creatinine 0.53. Calcium is 8.3. Sputum sampling is thus far negative. Chest x-ray shows some changes of COPD, with some diffuse atelectasis. Progress note dated February 20, 2024. 63-year-old male seen in room 261. The patient was intubated on February 16 for COPD exacerbation, and respiratory failure. He was successfully extubated on February 17. Currently, he remains on oxygen, 2 L. He is getting saline at 50 cc an hour. Solu-Medrol can be converted to prednisone 40 mg a day. The patient was downgraded yesterday, could be transferred out of the intensive care unit. His white count is 8.8, hemoglobin 13, hematocrit 42.6, and platelet count is normal. Sodium 136, potassium 4.5, chlorides 101, CO2 33, BUN 14, creatinine 0.55. Glucose is 144. Albumin is 2.9. Sputum Gram stain is thus far negative. Chest x-ray shows changes of COPD, with some bilateral interstitial infiltrates. There may be a component of pulmonary hypertension as well. Progress note dated February 21, 2024. 63-year-old male seen today in room 261. The patient continues on oxygen, by nasal cannula 2 L. He is not receiving any IV fluids. The patient is scheduled to have a heart catheterization later today. From the pulmonary standpoint, the patient is doing better. His breathing is much improved. He denies any worsening or more unusual shortness of breath, cough, wheezing, chest tightness, or phlegm production. He is not having any chest pain. No new labs today. Progress note dated February 22, 2024. 63-year-old male seen today in room 261. The patient continues on oxygen at 2 L. No IV fluids. The patient had a cardiac catheterization yesterday. Current labs include a white count 14, hemoglobin 13.7, hematocrit 40.9, and platelet count is normal. Sodium 131, potassium 3.8, chlorides 97, CO2 33, BUN 15, creatinine 0.45. Calcium is 8. Glucose is 87. Sputum sampling is negative. Chest x-ray shows primarily COPD. Objective - Vital Signs Vital signs: Vital Signs Temp 98 F 02/22/24 04:00 Pulse 87 02/22/24 04:00 Resp 15 02/22/24 04:00 BP 106/71 02/22/24 04:00 Pulse Ox 94 L 02/22/24 09:54 FiO2 35 02/18/24 11:34 Intake & Output 02/21/24 02/22/24 02/22/24 18:59 06:59 18:59 Intake Total 125 1285 Output Total 900 Balance 125 385 Weight 65.4 kg Intake: IV 125 925 Sodium Chloride 0.9% 1, 75 925 000 ml @ 75 mls/hr IV . [id number] [facility] Rx#:[id number] Oral 360 Output: Urine 900 - Exam No acute distress, oriented 3. Currently on 2 L of oxygen. Saturations are 99%. HEENT examination is grossly unremarkable. Mucous membranes are moist. No oral lesions. Neck supple. Full range of motion. No adenopathy thyromegaly or neck vein distention. Cardiovascular examination reveals regular rhythm rate. S1-S2 normal. No S3 or S4. No discernible murmur noted. Heart sounds are distant. Heart rate is 87 bpm. Lungs reveal diffuse bilateral inspiratory and expiratory rhonchi. Cough is harsh and wet sounding. Minimal expiratory wheezes. No crackles. Saturations are 94 % on 2 L. Abdomen soft with bowel sounds. No masses or tenderness. Extremities are intact. No cyanosis clubbing or edema. Skin is without rash or lesion. Neurologic examination is brief but nonfocal. - Labs CBC & Chem 7: 02/22/24 05:41 02/22/24 05:41 Labs: Abnormal Lab Results - Last 24 Hours (Table) 02/22/24 02/22/24 Range/Units 05:41 05:41 WBC 14.0 H (3.8-10.6) k/uL RBC 3.94 L (4.30-5.90) m/uL MCV 103.8 H (80.0-100.0) fL Neutrophils # 11.6 H (1.3-7.7) k/uL Sodium 131 L (137-145) mmol/L Chloride 97 L (98-107) mmol/L Carbon Dioxide 33 H (22-30) mmol/L Creatinine 0.45 L (0.66-1.25) mg/dL Calcium 8.0 L (8.4-10.2) mg/dL Assessment and Plan Assessment: Acute hypoxemic and hypercapnic respiratory failure, requiring intubation on February 16, with successful extubation on February 17. S/P cardiac catheterization, February 21, 2024, showing chronic total occlusion of the right coronary artery, with collaterals. Acute exacerbation of COPD. Possible non-ST segment elevation myocardial infarction. Hypotension, likely related to dehydration. History of deep vein thrombosis, left leg. History of unexplained weight loss. History of migraine cephalgia. History of varicose veins. History of generalized anxiety/depression. Plan: Plan dated February 19, 2024. The patient is seen today in room 261. The patient was intubated on February 16 for respiratory failure, and successfully extubated yesterday, February 17. The patient remains in the intensive care unit, room 261. Labs, x-rays, medications are reviewed. We will continue to follow the patient, make recommendations along the way. The patient's overall prognosis remains guarded. The patient had been smoking, and I counseled the patient about the importance of smoking cessation, once and for all. We will continue to follow the patient, make recommendations along the way. Labs, x-rays, and medications are reviewed. Plan dated February 20, 2024. The patient is seen today in room 261. The patient remains on oxygen at 2 L. Saturations are 96%. The patient is receiving saline at 50 cc an hour. The IV can be discontinued, as the patient is eating and drinking properly. The patient could be transferred out of the intensive care unit, to the general medical floor. The patient is a receiving Solu-Medrol, and that will be changed to prednisone 40 mg a day. Labs, x-rays, and medications are reviewed. The patient's overall prognosis remains guarded. We will continue to follow the patient, and make recommendations. Plan dated February 21, 2024. The patient will have a cardiac catheterization later today. He did have an e levated troponin, when he initially presented. From the pulmonary standpoint, he is doing much better. The patient could be discharged out of the intensive care unit. Labs, x-rays, and medications are reviewed. The patient's Solu- Medrol was converted to prednisone 40 mg a day. We will continue to follow make recommendations. No additional recommendations are made at this time. The patient is not receiving any IV fluids. He is on 2 L of oxygen. Plan dated February 22, 2024. The patient continues in room 261. He is on 2 L of oxygen. No IV fluids. The patient had a cardiac catheterization yesterday. He had total occlusion of the right coronary artery, with collateral vessels seen. The gluing machine operator said the patient should be medically managed. The patient is stable for discharge out of the intensive care unit. Labs, x-rays, medications are reviewed. We will continue to follow. Prognosis is guarded. Time with Patient: Less than 30
--- NOTE | 2024-02-22 15:39 | P.PN ---
Progress Note - Text Progress Note Date: 02/22/24 patient is a 63-year-old gentleman with past medical history significant for COPD, CHF who is a transfer from [facility] for evaluation of shortness of breath. Patient initially presented to [facility] for shortness of breath, was found to be in COPD exacerbation and CHF exacerbation. Patient was placed on BiPAP, lab work was suggestive of elevated troponin. Patient was placed on heparin and transferred to [facility]. On evaluation at [facility], patient was lethargic, not able to maintain a conversation. His respiratory status was worsening, patient was intubated was transferred to ICU Initial lab work done in the ER showed WBC 7.1, hemoglobin 15.8, platelet count 315, sodium 141, potassium 5.3, BUN 29, creatinine 0.65, lactate 2.2 troponin 2.310, proBNP 1400 6/. Patient seen and examined. WBC 8, hemoglobin 9, platelet count 255, sodium 130, potassium 4.5, BUN 20, creatinine 0.53, glucose 148. Patient was extubated yesterday. Currently doing much better. Still gets short of breath on exertion 02/19. Patient seen and examined. 2D echo done showed LV systolic dysfunction with an EF of 40%, apical hypokinesis, basal inferior wall is hypokinetic, mild mitral regurg. Lab work done showed WBC 8.8, hemoglobin 13, platelet count 292, sodium 130, potassium 4.5, BUN 14, creatinine 0.55. Patient is sitting up in the chair, states he feels better. Currently on 2 L of oxygen. Cardiology planning cardiac cath February 20: ICU. No chest pain. Breathing stable. Saw the patient this afternoon. Pending cardiac catheterization. February 21: ICU. Patient underwent cardiac catheterization by Dr. Novak yesterday. Found to have fixed disease. Medical management. Eating well. Comfortable. Earlier today received lisinopril blood pressure drop. Finally,. Currently blood pressure running in 80s systolic. Active Medications Albuterol Sulfate (Albuterol Hfa Inhaler) 2 puff INHALATION RT-QID ARYA Last Admin: 02/22/24 13:12 Dose: 2 puff Albuterol Sulfate (Albuterol Hfa Inhaler) 2 puff INHALATION RT-Q2H PRN PRN Reason: Shortness Of Breath Or Wheezing Alprazolam (Alprazolam 0.25 Mg Tab) 0.25 mg PO Q6HR PRN PRN Reason: Mild Anxiety Alprazolam (Alprazolam 0.5 Mg Tab) 0.5 mg PO Q6HR PRN PRN Reason: Moderate Anxiety Aspirin (Aspirin 81 Mg) 81 mg PO DAILY [facility] Last Admin: 02/22/24 09:01 Dose: 81 mg Atorvastatin Calcium (Atorvastatin 80 Mg Tab) 80 mg PO HS [facility] Last Admin: 02/21/24 20:30 Dose: 80 mg Budesonide/Formoterol Fumarate (Symbicort 160-4.5 Mcg Inhaler) 2 puff INHALATION RT-BID [facility] Last Admin: 02/22/24 09:50 Dose: 2 puff Buspirone HCl (Buspirone Hcl 5 Mg Tab) 5 mg PO BID [facility] Last Admin: 02/22/24 09:00 Dose: 5 mg Guaifenesin/Dextromethorphan (Guaifenesin-Dm 100-10mg/5ml 10 Ml Cup) 10 ml PO Q6HR PRN PRN Reason: Cough Last Admin: 02/20/24 06:09 Dose: 10 ml Hydromorphone HCl (Hydromorphone 1 Mg/Ml 1 Ml Syringe) 1 mg IVP Q3H PRN PRN Reason: Pain Last Admin: 02/18/24 03:55 Dose: 1 mg Heparin Sodium (Porcine) 10, (000 unit/ Sodium Chloride) 1,001 mls @ 999 mls/hr IRRIGATION ONCE PRN PRN Reason: INTRA-OP Stop: 02/22/24 23:00 Heparin Sodium (Porcine) 2,500 (unit/ Sodium Chloride) 250.5 mls @ 250 mls/hr IRRIGATION ONCE PRN PRN Reason: INTRA-OP Stop: 02/22/24 23:00 Lisinopril (Lisinopril 2.5 Mg Tab) 2.5 mg PO DAILY [facility] Last Admin: 02/22/24 12:11 Dose: Not Given Metoprolol Tartrate (Metoprolol Tartrate 12.5 Mg Tab) 12.5 mg PO BID [facility] Last Admin: 02/22/24 09:01 Dose: 12.5 mg Miscellaneous Information (Rx Info: Iv Contrast Was Given 1 Each Misc) 1 each MISCELLANE DAILY PRN PRN Reason: Per Protocol Stop: 02/23/24 14:34 Miscellaneous Information (Potassium Replacement Protocol 1 Each Misc) 1 each MISCELLANE DAILY PRN; Protocol PRN Reason: Per Protocol Montelukast Sodium (Montelukast 10 Mg Tab) 10 mg PO DAILY [facility] Last Admin: 02/22/24 09:00 Dose: 10 mg Naloxone HCl (Naloxone 0.4 Mg/Ml 1 Ml Vial) 0.2 mg IV Q2M PRN PRN Reason: Opioid Reversal Nitroglycerin (Nitroglycerin Sl Tabs 0.4 Mg Tab) 0.4 mg SUBLINGUAL Q5M PRN PRN Reason: Chest Pain Prednisone (Prednisone 20 Mg Tab) 40 mg PO DAILY [facility] Last Admin: 02/22/24 09:00 Dose: 40 mg Tiotropium [place] (Tiotropium 2.5 Mcg Inhaler) 2 puff INHALATION RT-DAILY [facility] Last Admin: 02/22/24 09:50 Dose: 2 puff Venlafaxine HCl (Venlafaxine Hcl Er 150 Mg Cap) 150 mg PO DAILY [facility] Last Admin: 02/22/24 09:01 Dose: 150 mg On examination: VITAL SIGNS: 97.7, 95, 24, 82 x 63, 96% on 2 L GENERAL APPEARANCE: Reclining in bed, comfortable. HEENT: Normal external appearance of nose and ear. Oral cavity normal EYES: Pupils equal. Conjunctiva normal. NECK: JVD not raised. Mass not palpable. RESPIRATORY: Respiratory effort normal. Lungs decreased breath sound. CARDIOVASCULAR: First and second sounds normal. No edema. ABDOMEN: Soft. Liver and spleen not palpable. No tenderness. No mass palpable. PSYCHIATRY: Alert and oriented x3. Mood and affect normal. INVESTIGATIONS, reviewed in the clinical context: Cardiac catheterization [February 21, 2024] chronic total occlusion of the RCA which fills by contralateral collaterals. Mild disease involving the left coronary system. Normal left-sided filling pressures. February 21: White count 14 hemoglobin 13.7 sodium 131 potassium 3.8 creatinine 0.45 February 19: White count 8.8 hemoglobin 13 platelets 292 sodium 136 potassium 4.5 BUN 14 creatinine 0.55 Troponin 2.3 2D echocardiogram [EF 40%] moderate pulmonary hypertension. Assessment and plan -Acute hypoxemic hypercapnic aspiratory failure, from COPD requiring intubation on February 16 extubated on February 17 Oxygen 2 L -Acute COPD exacerbation, in a smoker Ventolin 2 puffs 4 times daily. Symbicort. Spiriva. Prednisone 40 mg -Acute CHF exacerbation, from systolic dysfunction EF 40% Lopressor. -Hypotension, patient received lisinopril l today Hold the same until further evaluation by cardiology -Chronic CAD with occlusion of the RCA with collaterals per cardiac catheterization February 21, 2024 Medical management -IV heparin monitoring Follow PTT -Hyperkalemia Corrected -Acute NSTEMI Lopressor. Aspirin Pending cardiac catheterization this afternoon -Depression anxiety BuSpar. Effexor. -Lactic acidosis-type II Full code Continue current medications. Hold lisinopril.
[2024-02-22] MEDS: ALBUTEROL HFA INHALER INHALATION PRN (22:11)
--- NOTE | 2024-02-23 13:49 | P.PN ---
Subjective Progress Note Date: 02/23/24 This is a 63-year-old white male seen yesterday at [facility] with symptoms of shortness of breath which has been worsening over the last few days. Patient was evaluated and felt that the patient may have some component of congestive heart failure. He had elevated BNP but relatively unremarkable chest x-ray. Patient was also noted to have elevated troponin then he was transferred to [facility] for cardiac evaluation and possible non-ST elevation myocardial infarction. Patient was started on heparin and he also received antibiotics, IV Lasix, and IV steroids. Brought into the ER and shortly after he arrived, the patient was noted to be in severe respiratory distress. Patient was intubated, mechanically ventilated, admitted to the ICU overnight, and I was asked to see him on consultation. Patient was intubated and mechanically ventilated assist-control rate of 26 tidal volume 450 FiO2 was 50% by cut it down to 35% and PEEP was at 5 ABG on 50% showed a pO2 of 171 pCO2 50 pH of 7.38. Patient was on propofol at 40 mcg/kg/min norepinephrine at 0.07 mcg/kg/min IV fluid 0.9 normal saline at 75 cc/h. He had a negative CT angiogram of the chest on admission negative CT of the brain, I evaluated the patient, patient was arousable, following instructions, hence I proceeded to stopping propofol, and I recommended a short weaning trial with pressure support of 10 and CPAP. Indeed the patient tolerated the weaning trial fairly well, hence I recommended extubation while I am at bedside. Patient will be extubated to BiPAP 12/6/35%. Looking at his initial venous blood gases when the patient arrived to the ER last night he had a pCO2 of 100 pH of 7.13 and bicarb of 33 point obviously the patient presented with acute hypoxic and hypercapnic respiratory failure. Requiring intubation mechanical ventilation. He was seen by cardiology also while in the ICU, he was seen for his elevated troponins, and the recommendation was to continue heparin over the next 24 hours, start patient on statin, and await echocardiogram report for further recommendation. Progress note dated February 19, 2024. This is a 63-year-old male seen today in room 261. The patient was intubated on February 16, for COPD exacerbation and respiratory failure. The patient was successfully extubated yesterday, February 17. Currently, he is on 2 L of oxygen. He is getting saline at 10 cc an hour. The patient does have mildly audible wheezes, and a very harsh, wet cough. Labs include a white count 8, hemoglobin 12.9, hematocrit 40.8, and a platelet count of 255,000. Sodium is 136, potassium 4.5, chlorides 105, CO2 34, BUN 20, creatinine 0.53. Calcium is 8.3. Sputum sampling is thus far negative. Chest x-ray shows some changes of COPD, with some diffuse atelectasis. Progress note dated February 20, 2024. 63-year-old male seen in room 261. The patient was intubated on February 16 for COPD exacerbation, and respiratory failure. He was successfully extubated on February 17. Currently, he remains on oxygen, 2 L. He is getting saline at 50 cc an hour. Solu-Medrol can be converted to prednisone 40 mg a day. The patient was downgraded yesterday, could be transferred out of the intensive care unit. His white count is 8.8, hemoglobin 13, hematocrit 42.6, and platelet count is normal. Sodium 136, potassium 4.5, chlorides 101, CO2 33, BUN 14, creatinine 0.55. Glucose is 144. Albumin is 2.9. Sputum Gram stain is thus far negative. Chest x-ray shows changes of COPD, with some bilateral interstitial infiltrates. There may be a component of pulmonary hypertension as well. Progress note dated February 21, 2024. 63-year-old male seen today in room 261. The patient continues on oxygen, by nasal cannula 2 L. He is not receiving any IV fluids. The patient is scheduled to have a heart catheterization later today. From the pulmonary standpoint, the patient is doing better. His breathing is much improved. He denies any worsening or more unusual shortness of breath, cough, wheezing, chest tightness, or phlegm production. He is not having any chest pain. No new labs today. Progress note dated February 22, 2024. 63-year-old male seen today in room 261. The patient continues on oxygen at 2 L. No IV fluids. The patient had a cardiac catheterization yesterday. Current labs include a white count 14, hemoglobin 13.7, hematocrit 40.9, and platelet count is normal. Sodium 131, potassium 3.8, chlorides 97, CO2 33, BUN 15, creatinine 0.45. Calcium is 8. Glucose is 87. Sputum sampling is negative. Chest x-ray shows primarily COPD. The patient is seen today February 23, 2024 in follow-up on the selective care unit. He is awake and alert no acute distress. He is maintaining O2 saturations in the 90s on 3 L/min per nasal cannula. No IV fluids. Sputum culture revealed no growth. No new labs today. He remains on Symbicort, albuterol, Spiriva and a prednisone taper. Objective - Vital Signs Vital signs: Vital Signs Temp 97.6 F 02/23/24 12:18 Pulse 94 02/23/24 12:18 Resp 16 02/23/24 12:18 BP 118/59 02/23/24 12:18 Pulse Ox 95 02/23/24 12:18 FiO2 35 02/18/24 11:34 Intake & Output 02/22/24 02/23/24 02/23/24 18:59 06:59 18:59 Intake Total 540 Output Total 450 500 Balance -450 540 -500 Intake: Oral 540 Output: Urine 450 500 Other: Voiding Method Urinal Urinal Urinal # Voids 1 - Exam Awake alert 63-year-old male. Resting comfortably in bed. No acute distress, oriented 3. Currently on 2 L of oxygen. HEENT examination is grossly unremarkable. Mucous membranes are moist. No oral lesions. Neck supple. Full range of motion. No adenopathy thyromegaly or neck vein distention. Cardiovascular examination reveals regular rhythm rate. S1-S2 normal. No S3 or S4. No discernible murmur noted. Heart sounds are distant. Lungs reveal diffuse bilateral inspiratory and expiratory rhonchi. Cough is harsh and wet sounding. Minimal expiratory wheezes. No crackles. Abdomen soft with bowel sounds. No masses or tenderness. Extremities are intact. No cyanosis clubbing or edema. Skin is without rash or lesion. Neurologic examination is brief but nonfocal. - Labs CBC & Chem 7: 02/22/24 05:41 02/22/24 05:41 Assessment and Plan Assessment: Acute hypoxemic and hypercapnic respiratory failure, requiring intubation on February 16, with successful extubation on February 17. Stable and on 3 L nasal cannula S/P cardiac catheterization, February 21, 2024, showing chronic total occlusion of the right coronary artery, with collaterals Acute exacerbation of COPD Possible non-ST segment elevation myocardial infarction Hypotension, likely related to dehydration History of deep vein thrombosis, left leg History of unexplained weight loss History of migraine cephalgia History of varicose veins History of generalized anxiety/depression Plan: The patient was seen and evaluated Medications reviewed Stable and on 3 L nasal cannula Evaluate for possible home oxygen Continue bronchodilators and steroids Plan is for home with home care at discharge I have personally seen and examined the patient, performed the documentation and the assessment and plan as written. Number of minutes spent on the visit: 10.
--- NOTE | 2024-02-23 17:18 | P.PN ---
Subjective Progress Note Date: 02/23/24 Acute coronary syndrome The patient is a pleasant 63-year-old gentleman with a past medical history significant for COPD as well as hypertension and dyslipidemia and history of DVT was admitted to the hospital with acute hypoxic respiratory failure and he was diagnosed with COPD exacerbation and was found to have abnormal cardiac enzymes with elevated troponin with no EKG changes. He was treated medically. Echocardiogram was ordered and still pending. February 19, 2024 The patient was seen and evaluated this morning. He is asymptomatic with no pain in the chest but continues to have shortness of breath with exertion and continues to be hypoxic on oxygen. Eventually once he is stable from the COPD he need to undergo coronary angiogram to rule out severe CAD. The abnormal troponin also could be because of the hypoxemia and could be secondary to type II myocardial infarction. The echo still pending. Currently he is not on aspirin. I am going to start him on aspirin and start him on small dose of beta-alexander as well. The examination is remarkable for diminished breathing sounds bilaterally and regular rate and rhythm with a distant heart sounds and no edema was noted February 20, 2024 The patient was seen and evaluated this morning. He seems to be asymptomatic at this point. The echo showed impaired LV function with wall motion abnormalities concerning for severe underlying coronary artery disease and with that being said the patient will be scheduled to undergo a heart catheterization in the next 24 hours. Currently he reports no pain in the chest but continues to have shortness of breath. The examination is remarkable for stable vital signs with regular rate and rhythm and soft systolic murmur and diminished breathing sounds bilaterally. February 21, 2024 The patient was seen and evaluated this morning. He seems to be stable from the cardiac standpoint of view but he continues to be hypoxic requiring 2 L of oxygen. The plan is to pursue with a heart catheterization later on today or early afternoon. He is not having any chest pain or chest discomfort. The echo finding concerning for severe underlying coronary artery disease. He is on aspirin and beta-alexander and statin. From the cardiovascular standpoint of view, I would continue the current medical regimen and proceed with heart catheterization later on today. The examination is remarkable for stable vital signs with regular rate and rhythm and diminished breathing sounds bilaterally. February 22, 2024 The patient was seen and evaluated this morning. He underwent a heart catheterization yesterday and that revealed chronic total occlusion of the RCA which fills by contralateral collateral and mild to moderate disease involving the left coronary system. Maximize medical treatment was advised. With that being said he is on aspirin and beta-alexander and statin we will continue that. With the ejection fraction being about 40% I would consider adding lisinopril at 2.5 mg p.o. daily giving the soft blood pressure and tomorrow possibly considering adding Aldactone to the current medical regimen. He is still hypoxic requiring oxygen. No pain in the chest. The examination is remarkable for stable vital signs with soft blood pressure and bilateral expiratory wheezing appears to be very mild and regular rate and rhythm. 02/22 Patient is seen today on the cardiac stepdown unit as he has been transferred out of the intensive care unit. He denies having any chest pain. Lisinopril was ordered yesterday but this has not been given as patient has been hypotensive. He states his breathing is better with oxygen. He has not really been out of bed and is afraid of falling. No lower extremity edema. He does state that his pulse ox dropped when he was taken off oxygen yesterday. Heart rate is in the 90s, blood pressure 105/51, pulse ox 94% on 2 L nasal cannula. Repeat blood work reveals WBC 14, hemoglobin 13.7. Sodium 131, potassium 3.8, creatinine 0.45. The examination is remarkable for stable vital signs with soft blood pressure and bilateral expiratory wheezing appears to be very mild and regular rate and rhythm. Assessment CAD as described above Cardiomyopathy with a EF around 40% Acute hypoxic hypercapnic respiratory failure COPD exacerbation Evidence of myocardial injury secondary to type I versus type II PA Multiple comorbid conditions History of DVT Plan Continue current medical regimen Continue the current medical regimen including aspirin and statin and beta-alexander Add small dose of lisinopril to the current medical regimen in the light of cardiomyopathy Consider adding Aldactone if blood pressure improves Follow-up with the patient Nurse practitioner note has been reviewed, I agree with documented findings and plan of care. Patient was seen and examined. Objective - Vital Signs Vital signs: Vital Signs Temp 97.4 F L 02/23/24 04:00 Pulse 94 02/23/24 04:00 Resp 20 02/23/24 04:00 BP 115/56 02/23/24 04:00 Pulse Ox 95 02/23/24 04:00 FiO2 35 02/18/24 11:34 Intake & Output 02/22/24 02/23/24 02/23/24 18:59 06:59 18:59 Intake Total 540 Output Total 450 Balance -450 540 Intake: Oral 540 Output: Urine 450 Other: Voiding Method Urinal Urinal # Voids 1 - Labs CBC & Chem 7: 02/22/24 05:41 02/22/24 05:41
[2024-02-23] MEDS: ASPIRIN 325 MG TAB PO STA (17:59)
--- NOTE | 2024-02-23 18:54 | P.PN ---
Progress Note - Text Progress Note Date: 02/23/24 patient is a 63-year-old gentleman with past medical history significant for COPD, CHF who is a transfer from [facility] for evaluation of shortness of breath. Patient initially presented to [facility] for shortness of breath, was found to be in COPD exacerbation and CHF exacerbation. Patient was placed on BiPAP, lab work was suggestive of elevated troponin. Patient was placed on heparin and transferred to [facility]. On evaluation at [facility], patient was lethargic, not able to maintain a conversation. His respiratory status was worsening, patient was intubated was transferred to ICU Initial lab work done in the ER showed WBC 7.1, hemoglobin 15.8, platelet count 315, sodium 141, potassium 5.3, BUN 29, creatinine 0.65, lactate 2.2 troponin 2.310, proBNP 1400 6/. Patient seen and examined. WBC 8, hemoglobin 9, platelet count 255, sodium 130, potassium 4.5, BUN 20, creatinine 0.53, glucose 148. Patient was extubated yesterday. Currently doing much better. Still gets short of breath on exertion 02/19. Patient seen and examined. 2D echo done showed LV systolic dysfunction with an EF of 40%, apical hypokinesis, basal inferior wall is hypokinetic, mild mitral regurg. Lab work done showed WBC 8.8, hemoglobin 13, platelet count 292, sodium 130, potassium 4.5, BUN 14, creatinine 0.55. Patient is sitting up in the chair, states he feels better. Currently on 2 L of oxygen. Cardiology planning cardiac cath February 20: ICU. No chest pain. Breathing stable. Saw the patient this afternoon. Pending cardiac catheterization. February 21: ICU. Patient underwent cardiac catheterization by Dr. Novka yesterday. Found to have fixed disease. Medical management. Eating well. Comfortable. Earlier today received lisinopril blood pressure drop. Finally,. Currently blood pressure running in 80s systolic. February 22: Up in a chair. Requesting regular diet as opposed to chopped. Ordered. Patient received lisinopril this morning. Blood pressure holding steady.. Breathing better. On 3 L nasal cannula. Does not use oxygen at home. Ordered incentive spirometry. Will try to dial down FiO2. at the bedside. Active Medications Albuterol Sulfate (Albuterol Hfa Inhaler) 2 puff INHALATION RT-QID [facility] Last Admin: 02/23/24 16:03 Dose: 2 puff Albuterol Sulfate (Albuterol Hfa Inhaler) 2 puff INHALATION RT-Q2H PRN PRN Reason: Shortness Of Breath Or Wheezing Last Admin: 02/22/24 22:11 Dose: 2 puff Alprazolam (Alprazolam 0.25 Mg Tab) 0.25 mg PO Q6HR PRN PRN Reason: Mild Anxiety Alprazolam (Alprazolam 0.5 Mg Tab) 0.5 mg PO Q6HR PRN PRN Reason: Moderate Anxiety Aspirin (Aspirin 81 Mg) 81 mg PO DAILY [facility] Last Admin: 02/23/24 09:04 Dose: 81 mg Atorvastatin Calcium (Atorvastatin 80 Mg Tab) 80 mg PO HS [facility] Last Admin: 02/22/24 20:44 Dose: 80 mg Budesonide/Formoterol Fumarate (Symbicort 160-4.5 Mcg Inhaler) 2 puff INHALATION RT-BID [facility] Last Admin: 02/23/24 08:03 Dose: 2 puff Buspirone HCl (Buspirone Hcl 5 Mg Tab) 5 mg PO BID [facility] Last Admin: 02/23/24 09:04 Dose: 5 mg Guaifenesin/Dextromethorphan (Guaifenesin-Dm 100-10mg/5ml 10 Ml Cup) 10 ml PO Q6HR PRN PRN Reason: Cough Last Admin: 02/20/24 06:09 Dose: 10 ml Hydromorphone HCl (Hydromorphone 1 Mg/Ml 1 Ml Syringe) 1 mg IVP Q3H PRN PRN Reason: Pain Last Admin: 02/18/24 03:55 Dose: 1 mg Lisinopril (Lisinopril 2.5 Mg Tab) 2.5 mg PO DAILY [facility] Last Admin: 02/23/24 09:04 Dose: 2.5 mg Metoprolol Tartrate (Metoprolol Tartrate 12.5 Mg Tab) 12.5 mg PO BID [facility] Last Admin: 02/23/24 09:04 Dose: 12.5 mg Miscellaneous Information (Potassium Replacement Protocol 1 Each Misc) 1 each MISCELLANE DAILY PRN; Protocol PRN Reason: Per Protocol Montelukast Sodium (Montelukast 10 Mg Tab) 10 mg PO DAILY [facility] Last Admin: 02/23/24 09:04 Dose: 10 mg Naloxone HCl (Naloxone 0.4 Mg/Ml 1 Ml Vial) 0.2 mg IV Q2M PRN PRN Reason: Opioid Reversal Nitroglycerin (Nitroglycerin Sl Tabs 0.4 Mg Tab) 0.4 mg SUBLINGUAL Q5M PRN PRN Reason: Chest Pain Prednisone (Prednisone 20 Mg Tab) 40 mg PO DAILY [facility] Last Admin: 02/23/24 09:04 Dose: 40 mg Tiotropium [place] (Tiotropium 2.5 Mcg Inhaler) 2 puff INHALATION RT-DAILY [facility] Last Admin: 02/23/24 11:43 Dose: 2 puff Venlafaxine HCl (Venlafaxine Hcl Er 150 Mg Cap) 150 mg PO DAILY [facility] Last Admin: 02/23/24 09:04 Dose: 150 mg On examination: VITAL SIGNS: 97.2, 98, 16, 105/51, 94% on 2 L GENERAL APPEARANCE: Up in a chair, breathing better HEENT: Normal external appearance of nose and ear. Oral cavity normal EYES: Pupils equal. Conjunctiva normal. NECK: JVD not raised. Mass not palpable. RESPIRATORY: Respiratory effort normal. Lungs decreased breath sound. CARDIOVASCULAR: First and second sounds normal. No edema. ABDOMEN: Soft. Liver and spleen not palpable. No tenderness. No mass palpable. PSYCHIATRY: Alert and oriented x3. Mood and affect normal. INVESTIGATIONS, reviewed in the clinical context: Cardiac catheterization [February 21, 2024] chronic total occlusion of the RCA which fills by contralateral collaterals. Mild disease involving the left coronary system. Normal left-sided filling pressures. February 21: White count 14 hemoglobin 13.7 sodium 131 potassium 3.8 creatinine 0.45 February 19: White count 8.8 hemoglobin 13 platelets 292 sodium 136 potassium 4.5 BUN 14 creatinine 0.55 Troponin 2.3 2D echocardiogram [EF 40%] moderate pulmonary hypertension. Assessment and plan -Acute hypoxemic hypercapnic aspiratory failure, from COPD requiring intubation on February 16 extubated on February 17 Oxygen 3 L -Acute COPD exacerbation, in a smoker Ventolin 2 puffs 4 times daily. Symbicort. Spiriva. Prednisone 40 mg -Acute CHF exacerbation, from systolic dysfunction EF 40% Lopressor. Zestril 2.5 mg daily -Hypotension, patient received lisinopril l today Hold the same until further evaluation by cardiology -Chronic CAD with occlusion of the RCA with collaterals per cardiac catheterization February 21, 2024 Medical management -IV heparin monitoring-discontinued -Hyperkalemia Corrected -Acute NSTEMI Lopressor. Aspirin Status postcardiac catheterization -Depression anxiety BuSpar. Effexor. -Lactic acidosis-type II Full code Increase activity. Incentive spirometry. Taper down FiO2. Cut back prednisone
[2024-02-24] MEDS: predniSONE 10 MG TAB PO SCH (08:42)
--- NOTE | 2024-02-24 09:46 | P.PN ---
Subjective Progress Note Date: 02/24/24 Principal diagnosis: Acute coronary syndrome The patient is a pleasant 63-year-old gentleman with a past medical history significant for COPD as well as hypertension and dyslipidemia and history of DVT was admitted to the hospital with acute hypoxic respiratory failure and he was diagnosed with COPD exacerbation and was found to have abnormal cardiac enzymes with elevated troponin with no EKG changes. He was treated medically. Echocardiogram was ordered and still pending. February 19, 2024 The patient was seen and evaluated this morning. He is asymptomatic with no pain in the chest but continues to have shortness of breath with exertion and continues to be hypoxic on oxygen. Eventually once he is stable from the COPD he need to undergo coronary angiogram to rule out severe CAD. The abnormal troponin also could be because of the hypoxemia and could be secondary to type II myocardial infarction. The echo still pending. Currently he is not on aspirin. I am going to start him on aspirin and start him on small dose of beta-alexander as well. The examination is remarkable for diminished breathing sounds bilaterally and regular rate and rhythm with a distant heart sounds and no edema was noted February 20, 2024 The patient was seen and evaluated this morning. He seems to be asymptomatic at this point. The echo showed impaired LV function with wall motion abnormalities concerning for severe underlying coronary artery disease and with that being said the patient will be scheduled to undergo a heart catheterization in the next 24 hours. Currently he reports no pain in the chest but continues to have shortness of breath. The examination is remarkable for stable vital signs with regular rate and rhythm and soft systolic murmur and diminished breathing sounds bilaterally. February 21, 2024 The patient was seen and evaluated this morning. He seems to be stable from the cardiac standpoint of view but he continues to be hypoxic requiring 2 L of oxygen. The plan is to pursue with a heart catheterization later on today or early afternoon. He is not having any chest pain or chest discomfort. The echo finding concerning for severe underlying coronary artery disease. He is on aspirin and beta-alexander and statin. From the cardiovascular standpoint of view, I would continue the current medical regimen and proceed with heart catheterization later on today. The examination is remarkable for stable vital signs with regular rate and rhythm and diminished breathing sounds bilaterally. February 22, 2024 The patient was seen and evaluated this morning. He underwent a heart catheterization yesterday and that revealed chronic total occlusion of the RCA which fills by contralateral collateral and mild to moderate disease involving the left coronary system. Maximize medical treatment was advised. With that being said he is on aspirin and beta-alexander and statin we will continue that. With the ejection fraction being about 40% I would consider adding lisinopril at 2.5 mg p.o. daily giving the soft blood pressure and tomorrow possibly considering adding Aldactone to the current medical regimen. He is still hypoxic requiring oxygen. No pain in the chest. The examination is remarkable for stable vital signs with soft blood pressure and bilateral expiratory wheezing appears to be very mild and regular rate and rhythm. February 24, 2024 The patient was seen and evaluated this morning. Overall he is asymptomatic and hemodynamically stable. He did have an episode of diarrhea and he is going to be checked for that. Otherwise he is on aspirin and beta-alexander and statin and he is also on lisinopril. No symptoms of chest pain or chest discomfort. From the cardiovascular standpoint of view, I would continue the current medical regimen. The patient potentially can be discharged in the next 24 to 48 hours. Examination is remarkable for stable vital signs with regular rate and rhythm and diminished breathing sounds bilaterally and no edema was noted Assessment CAD as described above Cardiomyopathy with a EF around 40% Acute hypoxic hypercapnic respiratory failure COPD exacerbation Evidence of myocardial injury secondary to type I versus type II SC Multiple comorbid conditions History of DVT Plan Continue current medical regimen Continue the current medical regimen including aspirin and statin and beta- alexander Follow-up with the patient Consider discharge home in the next 24 hours Objective - Vital Signs Vital signs: Vital Signs Temp 97.4 F L 02/24/24 08:42 Pulse 102 H 02/24/24 08:42 Resp 19 02/24/24 08:42 BP 112/64 02/24/24 08:42 Pulse Ox 98 02/24/24 08:42 FiO2 35 02/18/24 11:34 Intake & Output 02/23/24 02/24/24 02/24/24 18:59 06:59 18:59 Intake Total 10 20 Output Total 500 0 320 Balance -490 20 -320 Intake: IV 10 20 Invasive Line 4 10 20 Oral 0 Output: Urine 500 0 320 Uretheral (Connelly) 320 Other: Voiding Method Urinal Urinal Urinal - Labs CBC & Chem 7: 02/22/24 05:41 02/22/24 05:41
[2024-02-24 10:47] LABS: African American GFR (CKD) >90 (>60 ml/min/1.73 sqM); Anion Gap 5 mmol/L; Blood Urea Nitrogen 15 mg/dL (9-20); Calcium 8.2 mg/dL (8.4-10.2); Carbon Dioxide 29 mmol/L (22-30); Chloride 96 mmol/L (98-107); Glucose 86 mg/dL (74-99); Non-African American GFR(CKD) >90 (>60 ml/min/1.73 sqM); Sodium 130 mmol/L (137-145)
--- NOTE | 2024-02-24 13:00 | P.PN ---
Subjective Progress Note Date: 02/24/24 This is a 63-year-old white male seen yesterday at [facility] with symptoms of shortness of breath which has been worsening over the last few days. Patient was evaluated and felt that the patient may have some component of congestive heart failure. He had elevated BNP but relatively unremarkable chest x-ray. Patient was also noted to have elevated troponin then he was transferred to [facility] for cardiac evaluation and possible non-ST elevation myocardial infarction. Patient was started on heparin and he also received antibiotics, IV Lasix, and IV steroids. Brought into the ER and shortly after he arrived, the patient was noted to be in severe respiratory distress. Patient was intubated, mechanically ventilated, admitted to the ICU overnight, and I was asked to see him on consultation. Patient was intubated and mechanically ventilated assist-control rate of 26 tidal volume 450 FiO2 was 50% by cut it down to 35% and PEEP was at 5 ABG on 50% showed a pO2 of 171 pCO2 50 pH of 7.38. Patient was on propofol at 40 mcg/kg/min norepinephrine at 0.07 mcg/kg/min IV fluid 0.9 normal saline at 75 cc/h. He had a negative CT angiogram of the chest on admission negative CT of the brain, I evaluated the patient, patient was arousable, following instructions, hence I proceeded to stopping propofol, and I recommended a short weaning trial with pressure support of 10 and CPAP. Indeed the patient tolerated the weaning trial fairly well, hence I recommended extubation while I am at bedside. Patient will be extubated to BiPAP 12/6/35%. Looking at his initial venous blood gases when the patient arrived to the ER last night he had a pCO2 of 100 pH of 7.13 and bicarb of 33 point obviously the patient presented with acute hypoxic and hypercapnic respiratory failure. Requiring intubation mechanical ventilation. He was seen by cardiology also while in the ICU, he was seen for his elevated troponins, and the recommendation was to continue heparin over the next 24 hours, start patient on statin, and await echocardiogram report for further recommendation. Progress note dated February 19, 2024. This is a 63-year-old male seen today in room 261. The patient was intubated on February 16, for COPD exacerbation and respiratory failure. The patient was successfully extubated yesterday, February 17. Currently, he is on 2 L of oxygen. He is getting saline at 10 cc an hour. The patient does have mildly audible wheezes, and a very harsh, wet cough. Labs include a white count 8, hemoglobin 12.9, hematocrit 40.8, and a platelet count of 255,000. Sodium is 136, potassium 4.5, chlorides 105, CO2 34, BUN 20, creatinine 0.53. Calcium is 8.3. Sputum sampling is thus far negative. Chest x-ray shows some changes of COPD, with some diffuse atelectasis. Progress note dated February 20, 2024. 63-year-old male seen in room 261. The patient was intubated on February 16 for COPD exacerbation, and respiratory failure. He was successfully extubated on February 17. Currently, he remains on oxygen, 2 L. He is getting saline at 50 cc an hour. Solu-Medrol can be converted to prednisone 40 mg a day. The patient was downgraded yesterday, could be transferred out of the intensive care unit. His white count is 8.8, hemoglobin 13, hematocrit 42.6, and platelet count is normal. Sodium 136, potassium 4.5, chlorides 101, CO2 33, BUN 14, creatinine 0.55. Glucose is 144. Albumin is 2.9. Sputum Gram stain is thus far negative. Chest x-ray shows changes of COPD, with some bilateral interstitial infiltrates. There may be a component of pulmonary hypertension as well. Progress note dated February 21, 2024. 63-year-old male seen today in room 261. The patient continues on oxygen, by nasal cannula 2 L. He is not receiving any IV fluids. The patient is scheduled to have a heart catheterization later today. From the pulmonary standpoint, the patient is doing better. His breathing is much improved. He denies any worsening or more unusual shortness of breath, cough, wheezing, chest tightness, or phlegm production. He is not having any chest pain. No new labs today. Progress note dated February 22, 2024. 63-year-old male seen today in room 261. The patient continues on oxygen at 2 L. No IV fluids. The patient had a cardiac catheterization yesterday. Current labs include a white count 14, hemoglobin 13.7, hematocrit 40.9, and platelet count is normal. Sodium 131, potassium 3.8, chlorides 97, CO2 33, BUN 15, creatinine 0.45. Calcium is 8. Glucose is 87. Sputum sampling is negative. Chest x-ray shows primarily COPD. The patient is seen today February 23, 2024 in follow-up on the selective care unit. He is awake and alert no acute distress. He is maintaining O2 saturations in the 90s on 3 L/min per nasal cannula. No IV fluids. Sputum culture revealed no growth. No new labs today. He remains on Symbicort, albuterol, Spiriva and a prednisone taper. The patient is seen today February 24, 2024 in follow-up on the selective care unit. He is awake and alert in no acute distress. Currently sitting up in a chair at the bedside. No worsening shortness of breath, cough or congestion. Maintaining O2 saturations in the mid to upper 90s on 2 L/min per nasal cannula. He is afebrile. Sputum culture revealed no growth. Sodium 130. Potassium 6.0. Bicarb 29. BUN 15. Creatinine 0.45. Glucose 86. He is continued on albuterol, Symbicort, Spiriva, prednisone taper. Objective - Vital Signs Vital signs: Vital Signs Temp 97.2 F L 02/24/24 11:30 Pulse 80 02/24/24 11:30 Resp 17 02/24/24 11:30 BP 96/57 02/24/24 11:30 Pulse Ox 96 02/24/24 11:30 FiO2 35 02/18/24 11:34 Intake & Output 02/23/24 02/24/24 02/24/24 18:59 06:59 18:59 Intake Total 10 20 Output Total 500 0 320 Balance -490 20 -320 Intake: IV 10 20 Invasive Line 4 10 20 Oral 0 Output: Urine 500 0 320 Uretheral (Connelly) 320 Other: Voiding Method Urinal Urinal Urinal # Bowel Movements 1 - Exam GENERAL EXAM: Alert, active, 63-year-old male, on 2 L nasal cannula, comfortable in no apparent distress. HEAD: Normocephalic. EYES: Normal reaction of pupils, equal size. NOSE: Clear with pink turbinates. THROAT: No erythema or exudates. NECK: No masses, no JVD. CHEST: No chest wall deformity. LUNGS: Equal air entry with no crackles, wheeze, rhonchi or dullness. CVS: S1 and S2 normal with no audible murmur, regular rhythm. ABDOMEN: No hepatosplenomegaly, normal bowel sounds, no guarding or rigidity. SPINE: No scoliosis or deformity SKIN: No rashes CENTRAL NERVOUS SYSTEM: No focal deficits, tone is normal in all 4 extremities. EXTREMITIES: There is no peripheral edema. No clubbing, no cyanosis. Peripheral pulses are intact. - Labs CBC & Chem 7: 02/22/24 05:41 02/24/24 09:53 Labs: Abnormal Lab Results - Last 24 Hours (Table) 02/24/24 Range/Units 09:53 Sodium 130 L (137-145) mmol/L Potassium 6.0 H (3.5-5.1) mmol/L Chloride 96 L (98-107) mmol/L Creatinine 0.45 L (0.66-1.25) mg/dL Calcium 8.2 L (8.4-10.2) mg/dL Assessment and Plan Assessment: Acute hypoxemic and hypercapnic respiratory failure, requiring intubation on February 16, with successful extubation on February 17. Stable and on 2 L nasal cannula S/P cardiac catheterization, February 21, 2024, showing chronic total occlusion of the right coronary artery, with collaterals Acute exacerbation of COPD Possible non-ST segment elevation myocardial infarction Hypotension, likely related to dehydration History of deep vein thrombosis, left leg History of unexplained weight loss History of migraine cephalgia History of varicose veins History of generalized anxiety/depression Plan: The patient was seen and evaluated Medications and labs reviewed Stable and on 2 L nasal cannula Continue bronchodilators and steroids Plan is for home with home care at discharge I have personally seen and examined the patient, performed the documentation and the assessment and plan as written. Number of minutes spent on the visit: 10.
--- NOTE | 2024-02-24 19:20 | P.PN ---
Progress Note - Text Progress Note Date: 02/24/24 patient is a 63-year-old gentleman with past medical history significant for COPD, CHF who is a transfer from [facility] for evaluation of shortness of breath. Patient initially presented to [facility] for shortness of breath, was found to be in COPD exacerbation and CHF exacerbation. Patient was placed on BiPAP, lab work was suggestive of elevated troponin. Patient was placed on heparin and transferred to [facility]. On evaluation at [facility], patient was lethargic, not able to maintain a conversation. His respiratory status was worsening, patient was intubated was transferred to ICU Initial lab work done in the ER showed WBC 7.1, hemoglobin 15.8, platelet count 315, sodium 141, potassium 5.3, BUN 29, creatinine 0.65, lactate 2.2 troponin 2.310, proBNP 1400 6/. Patient seen and examined. WBC 8, hemoglobin 9, platelet count 255, sodium 130, potassium 4.5, BUN 20, creatinine 0.53, glucose 148. Patient was extubated yesterday. Currently doing much better. Still gets short of breath on exertion 02/19. Patient seen and examined. 2D echo done showed LV systolic dysfunction with an EF of 40%, apical hypokinesis, basal inferior wall is hypokinetic, mild mitral regurg. Lab work done showed WBC 8.8, hemoglobin 13, platelet count 292, sodium 130, potassium 4.5, BUN 14, creatinine 0.55. Patient is sitting up in the chair, states he feels better. Currently on 2 L of oxygen. Cardiology planning cardiac cath February 20: ICU. No chest pain. Breathing stable. Saw the patient this afternoon. Pending cardiac catheterization. February 21: ICU. Patient underwent cardiac catheterization by Dr. Novak yesterday. Found to have fixed disease. Medical management. Eating well. Comfortable. Earlier today received lisinopril blood pressure drop. Finally,. Currently blood pressure running in 80s systolic. February 22: Up in a chair. Requesting regular diet as opposed to chopped. Ordered. Patient received lisinopril this morning. Blood pressure holding steady.. Breathing better. On 3 L nasal cannula. Does not use oxygen at home. Ordered incentive spirometry. Will try to dial down FiO2. at the bedside. February 23: Up in a chair. Blood pressure again down to the 80s-90 systolic today. Using incentive spirometry. Down to 2 L nasal cannula. Active Medications Albuterol Sulfate (Albuterol Hfa Inhaler) 2 puff INHALATION RT-QID [facility] Last Admin: 02/24/24 15:17 Dose: 2 puff Albuterol Sulfate (Albuterol Hfa Inhaler) 2 puff INHALATION RT-Q2H PRN PRN Reason: Shortness Of Breath Or Wheezing Last Admin: 02/22/24 22:11 Dose: 2 puff Alprazolam (Alprazolam 0.25 Mg Tab) 0.25 mg PO Q6HR PRN PRN Reason: Mild Anxiety Alprazolam (Alprazolam 0.5 Mg Tab) 0.5 mg PO Q6HR PRN PRN Reason: Moderate Anxiety Aspirin (Aspirin 81 Mg) 81 mg PO DAILY [facility] Last Admin: 02/24/24 08:42 Dose: 81 mg Atorvastatin Calcium (Atorvastatin 80 Mg Tab) 80 mg PO HS [facility] Last Admin: 02/23/24 21:01 Dose: 80 mg Budesonide/Formoterol Fumarate (Symbicort 160-4.5 Mcg Inhaler) 2 puff INHALATION RT-BID [facility] Last Admin: 02/24/24 08:00 Dose: 2 puff Buspirone HCl (Buspirone Hcl 5 Mg Tab) 5 mg PO BID [facility] Last Admin: 02/24/24 08:42 Dose: 5 mg Guaifenesin/Dextromethorphan (Guaifenesin-Dm 100-10mg/5ml 10 Ml Cup) 10 ml PO Q6HR PRN PRN Reason: Cough Last Admin: 02/20/24 06:09 Dose: 10 ml Hydromorphone HCl (Hydromorphone 1 Mg/Ml 1 Ml Syringe) 1 mg IVP Q3H PRN PRN Reason: Pain Last Admin: 02/18/24 03:55 Dose: 1 mg Lisinopril (Lisinopril 2.5 Mg Tab) 2.5 mg PO DAILY [facility] Last Admin: 02/24/24 08:42 Dose: 2.5 mg Metoprolol Tartrate (Metoprolol Tartrate 12.5 Mg Tab) 12.5 mg PO BID [facility] Last Admin: 02/24/24 08:42 Dose: 12.5 mg Miscellaneous Information (Potassium Replacement Protocol 1 Each Misc) 1 each MISCELLANE DAILY PRN; Protocol PRN Reason: Per Protocol Montelukast Sodium (Montelukast 10 Mg Tab) 10 mg PO DAILY [facility] Last Admin: 02/24/24 08:42 Dose: 10 mg Naloxone HCl (Naloxone 0.4 Mg/Ml 1 Ml Vial) 0.2 mg IV Q2M PRN PRN Reason: Opioid Reversal Nitroglycerin (Nitroglycerin Sl Tabs 0.4 Mg Tab) 0.4 mg SUBLINGUAL Q5M PRN PRN Reason: Chest Pain Prednisone (Prednisone 10 Mg Tab) 30 mg PO DAILY [facility] Last Admin: 02/24/24 08:42 Dose: 30 mg Tiotropium Anderson (Tiotropium 2.5 Mcg Inhaler) 2 puff INHALATION RT-DAILY [facility] Last Admin: 02/24/24 08:00 Dose: 2 puff Venlafaxine HCl (Venlafaxine Hcl Er 150 Mg Cap) 150 mg PO DAILY [facility] Last Admin: 02/24/24 08:42 Dose: 150 mg On examination: VITAL SIGNS: 97.2, 80, 17, 96 x 57, 96% on 2 L GENERAL APPEARANCE: Up in a chair, more comfortable HEENT: Normal external appearance of nose and ear. Oral cavity normal EYES: Pupils equal. Conjunctiva normal. NECK: JVD not raised. Mass not palpable. RESPIRATORY: Respiratory effort normal. Lungs decreased breath sound. CARDIOVASCULAR: First and second sounds normal. No edema. ABDOMEN: Soft. Liver and spleen not palpable. No tenderness. No mass palpable. PSYCHIATRY: Alert and oriented x3. Mood and affect normal. INVESTIGATIONS, reviewed in the clinical context: Cardiac catheterization [February 21, 2024] chronic total occlusion of the RCA which fills by contralateral collaterals. Mild disease involving the left coronary system. Normal left-sided filling pressures. February 21: White count 14 hemoglobin 13.7 sodium 131 potassium 3.8 creatinine 0.45 February 19: White count 8.8 hemoglobin 13 platelets 292 sodium 136 potassium 4.5 BUN 14 creatinine 0.55 Troponin 2.3 2D echocardiogram [EF 40%] moderate pulmonary hypertension. Assessment and plan -Acute hypoxemic hypercapnic aspiratory failure, from COPD requiring intubation on February 16 extubated on February 17 Oxygen 2 L -Acute COPD exacerbation, in a smoker Ventolin 2 puffs 4 times daily. Symbicort. Spiriva. Prednisone 30 mg -Acute CHF exacerbation, from systolic dysfunction EF 40% Lopressor. Zestril 2.5 mg daily -Hypotension, -Chronic CAD with occlusion of the RCA with collaterals per cardiac catheterization February 21, 2024 Medical management -IV heparin monitoring-discontinued -Hyperkalemia Corrected -Acute NSTEMI Lopressor. Aspirin Status postcardiac catheterization -Depression anxiety BuSpar. Effexor. -Lactic acidosis-type II Full code Trying to cut back on FiO2. Improving.
--- NOTE | 2024-02-25 09:57 | P.PN ---
Subjective Progress Note Date: 02/25/24 Principal diagnosis: Acute coronary syndrome The patient is a pleasant 63-year-old gentleman with a past medical history significant for COPD as well as hypertension and dyslipidemia and history of DVT was admitted to the hospital with acute hypoxic respiratory failure and he was diagnosed with COPD exacerbation and was found to have abnormal cardiac enzymes with elevated troponin with no EKG changes. He was treated medically. Echocardiogram was ordered and still pending. February 19, 2024 The patient was seen and evaluated this morning. He is asymptomatic with no pain in the chest but continues to have shortness of breath with exertion and continues to be hypoxic on oxygen. Eventually once he is stable from the COPD he need to undergo coronary angiogram to rule out severe CAD. The abnormal troponin also could be because of the hypoxemia and could be secondary to type II myocardial infarction. The echo still pending. Currently he is not on aspirin. I am going to start him on aspirin and start him on small dose of beta-alexander as well. The examination is remarkable for diminished breathing sounds bilaterally and regular rate and rhythm with a distant heart sounds and no edema was noted February 20, 2024 The patient was seen and evaluated this morning. He seems to be asymptomatic at this point. The echo showed impaired LV function with wall motion abnormalities concerning for severe underlying coronary artery disease and with that being said the patient will be scheduled to undergo a heart catheterization in the next 24 hours. Currently he reports no pain in the chest but continues to have shortness of breath. The examination is remarkable for stable vital signs with regular rate and rhythm and soft systolic murmur and diminished breathing sounds bilaterally. February 21, 2024 The patient was seen and evaluated this morning. He seems to be stable from the cardiac standpoint of view but he continues to be hypoxic requiring 2 L of oxygen. The plan is to pursue with a heart catheterization later on today or early afternoon. He is not having any chest pain or chest discomfort. The echo finding concerning for severe underlying coronary artery disease. He is on aspirin and beta-alexander and statin. From the cardiovascular standpoint of view, I would continue the current medical regimen and proceed with heart catheterization later on today. The examination is remarkable for stable vital signs with regular rate and rhythm and diminished breathing sounds bilaterally. February 22, 2024 The patient was seen and evaluated this morning. He underwent a heart catheterization yesterday and that revealed chronic total occlusion of the RCA which fills by contralateral collateral and mild to moderate disease involving the left coronary system. Maximize medical treatment was advised. With that being said he is on aspirin and beta-alexander and statin we will continue that. With the ejection fraction being about 40% I would consider adding lisinopril at 2.5 mg p.o. daily giving the soft blood pressure and tomorrow possibly considering adding Aldactone to the current medical regimen. He is still hypoxic requiring oxygen. No pain in the chest. The examination is remarkable for stable vital signs with soft blood pressure and bilateral expiratory wheezing appears to be very mild and regular rate and rhythm. February 24, 2024 The patient was seen and evaluated this morning. Overall he is asymptomatic and hemodynamically stable. He did have an episode of diarrhea and he is going to be checked for that. Otherwise he is on aspirin and beta-alexander and statin and he is also on lisinopril. No symptoms of chest pain or chest discomfort. From the cardiovascular standpoint of view, I would continue the current medical regimen. The patient potentially can be discharged in the next 24 to 48 hours. Examination is remarkable for stable vital signs with regular rate and rhythm and diminished breathing sounds bilaterally and no edema was noted February 25, 2024 The patient was seen and evaluated this morning. He is asymptomatic in terms of chest pain or chest discomfort and the shortness of breath has improved significantly. He is on aspirin and statin and beta-alexander with him going to add Plavix to the current medical regimen. He is off oxygen completely with examination is remarkable for stable vital signs with regular rate and rhythm and diminished breathing sounds bilaterally. No edema was noted. Assessment CAD as described above Cardiomyopathy with a EF around 40% Acute hypoxic hypercapnic respiratory failure COPD exacerbation Evidence of myocardial injury secondary to type I versus type II MA Multiple comorbid conditions History of DVT Plan Continue current medical regimen Continue the current medical regimen including aspirin and statin and beta- alexander The Plavix to the current medical regimen Follow-up with the patient Consider discharge home in the next 24 hours Objective - Vital Signs Vital signs: Vital Signs Temp 97.7 F 02/25/24 08:45 Pulse 100 02/25/24 08:45 Resp 17 02/25/24 08:45 BP 120/62 02/25/24 08:45 Pulse Ox 95 02/25/24 08:45 FiO2 35 02/18/24 11:34 Intake & Output 02/24/24 02/25/24 02/25/24 18:59 06:59 18:59 Intake Total 1422 20 250 Output Total 320 451 Balance 1102 -431 250 Weight 64.5 kg Intake: IV 20 10 Invasive Line 4 20 10 Oral 1422 240 Output: Urine 320 380 Uretheral (Connelly) 320 Post Void Residual 71 Other: Voiding Method Urinal Urinal Urinal # Voids 1 1 # Bowel Movements 1 1 - Labs CBC & Chem 7: 02/22/24 05:41 02/24/24 13:26 Labs: Abnormal Lab Results - Last 24 Hours (Table) 02/24/24 Range/Units 09:53 Sodium 130 L (137-145) mmol/L Potassium 6.0 H (3.5-5.1) mmol/L Chloride 96 L (98-107) mmol/L Creatinine 0.45 L (0.66-1.25) mg/dL Calcium 8.2 L (8.4-10.2) mg/dL
--- NOTE | 2024-02-25 12:43 | P.PN ---
Subjective Progress Note Date: 02/25/24 This is a 63-year-old white male seen yesterday at [facility] with symptoms of shortness of breath which has been worsening over the last few days. Patient was evaluated and felt that the patient may have some component of congestive heart failure. He had elevated BNP but relatively unremarkable chest x-ray. Patient was also noted to have elevated troponin then he was transferred to [facility] for cardiac evaluation and possible non-ST elevation myocardial infarction. Patient was started on heparin and he also received antibiotics, IV Lasix, and IV steroids. Brought into the ER and shortly after he arrived, the patient was noted to be in severe respiratory distress. Patient was intubated, mechanically ventilated, admitted to the ICU overnight, and I was asked to see him on consultation. Patient was intubated and mechanically ventilated assist-control rate of 26 tidal volume 450 FiO2 was 50% by cut it down to 35% and PEEP was at 5 ABG on 50% showed a pO2 of 171 pCO2 50 pH of 7.38. Patient was on propofol at 40 mcg/kg/min norepinephrine at 0.07 mcg/kg/min IV fluid 0.9 normal saline at 75 cc/h. He had a negative CT angiogram of the chest on admission negative CT of the brain, I evaluated the patient, patient was arousable, following instructions, hence I proceeded to stopping propofol, and I recommended a short weaning trial with pressure support of 10 and CPAP. Indeed the patient tolerated the weaning trial fairly well, hence I recommended extubation while I am at bedside. Patient will be extubated to BiPAP 12/6/35%. Looking at his initial venous blood gases when the patient arrived to the ER last night he had a pCO2 of 100 pH of 7.13 and bicarb of 33 point obviously the patient presented with acute hypoxic and hypercapnic respiratory failure. Requiring intubation mechanical ventilation. He was seen by cardiology also while in the ICU, he was seen for his elevated troponins, and the recommendation was to continue heparin over the next 24 hours, start patient on statin, and await echocardiogram report for further recommendation. Progress note dated February 19, 2024. This is a 63-year-old male seen today in room 261. The patient was intubated on February 16, for COPD exacerbation and respiratory failure. The patient was successfully extubated yesterday, February 17. Currently, he is on 2 L of oxygen. He is getting saline at 10 cc an hour. The patient does have mildly audible wheezes, and a very harsh, wet cough. Labs include a white count 8, hemoglobin 12.9, hematocrit 40.8, and a platelet count of 255,000. Sodium is 136, potassium 4.5, chlorides 105, CO2 34, BUN 20, creatinine 0.53. Calcium is 8.3. Sputum sampling is thus far negative. Chest x-ray shows some changes of COPD, with some diffuse atelectasis. Progress note dated February 20, 2024. 63-year-old male seen in room 261. The patient was intubated on February 16 for COPD exacerbation, and respiratory failure. He was successfully extubated on February 17. Currently, he remains on oxygen, 2 L. He is getting saline at 50 cc an hour. Solu-Medrol can be converted to prednisone 40 mg a day. The patient was downgraded yesterday, could be transferred out of the intensive care unit. His white count is 8.8, hemoglobin 13, hematocrit 42.6, and platelet count is normal. Sodium 136, potassium 4.5, chlorides 101, CO2 33, BUN 14, creatinine 0.55. Glucose is 144. Albumin is 2.9. Sputum Gram stain is thus far negative. Chest x-ray shows changes of COPD, with some bilateral interstitial infiltrates. There may be a component of pulmonary hypertension as well. Progress note dated February 21, 2024. 63-year-old male seen today in room 261. The patient continues on oxygen, by nasal cannula 2 L. He is not receiving any IV fluids. The patient is scheduled to have a heart catheterization later today. From the pulmonary standpoint, the patient is doing better. His breathing is much improved. He denies any worsening or more unusual shortness of breath, cough, wheezing, chest tightness, or phlegm production. He is not having any chest pain. No new labs today. Progress note dated February 22, 2024. 63-year-old male seen today in room 261. The patient continues on oxygen at 2 L. No IV fluids. The patient had a cardiac catheterization yesterday. Current labs include a white count 14, hemoglobin 13.7, hematocrit 40.9, and platelet count is normal. Sodium 131, potassium 3.8, chlorides 97, CO2 33, BUN 15, creatinine 0.45. Calcium is 8. Glucose is 87. Sputum sampling is negative. Chest x-ray shows primarily COPD. The patient is seen today February 23, 2024 in follow-up on the selective care unit. He is awake and alert no acute distress. He is maintaining O2 saturations in the 90s on 3 L/min per nasal cannula. No IV fluids. Sputum culture revealed no growth. No new labs today. He remains on Symbicort, albuterol, Spiriva and a prednisone taper. The patient is seen today February 24, 2024 in follow-up on the selective care unit. He is awake and alert in no acute distress. Currently sitting up in a chair at the bedside. No worsening shortness of breath, cough or congestion. Maintaining O2 saturations in the mid to upper 90s on 2 L/min per nasal cannula. He is afebrile. Sputum culture revealed no growth. Sodium 130. Potassium 6.0. Bicarb 29. BUN 15. Creatinine 0.45. Glucose 86. He is continued on albuterol, Symbicort, Spiriva, prednisone taper. The patient is seen today February 25, 2024 in follow-up on the selective care unit. He is currently up in a chair at the bedside. Awake and alert in no acute distress. Denies any worsening shortness of breath, cough or congestion. He is maintaining O2 saturations in the 90s on 2 L nasal cannula. He did drop to 81% while on room air. He is continued on Symbicort, Spiriva, albuterol, prednisone taper and Singulair. C. difficile colitis screen was negative. Objective - Vital Signs Vital signs: Vital Signs Temp 97.7 F 02/25/24 08:45 Pulse 100 02/25/24 08:45 Resp 17 02/25/24 08:45 BP 120/62 02/25/24 08:45 Pulse Ox 91 L 02/25/24 10:10 FiO2 35 02/18/24 11:34 Intake & Output 02/24/24 02/25/24 02/25/24 18:59 06:59 18:59 Intake Total 1422 20 250 Output Total 320 451 Balance 1102 -431 250 Weight 64.5 kg Intake: IV 20 10 Invasive Line 4 20 10 Oral 1422 240 Output: Urine 320 380 Uretheral (Connelly) 320 Post Void Residual 71 Other: Voiding Method Urinal Urinal Urinal # Voids 1 1 # Bowel Movements 1 1 - Exam GENERAL EXAM: Alert, pleasant 63-year-old male, up in a chair, on 2 L nasal cannula, comfortable in no apparent distress. HEAD: Normocephalic. EYES: Normal reaction of pupils, equal size. NOSE: Clear with pink turbinates. THROAT: No erythema or exudates. NECK: No masses, no JVD. CHEST: No chest wall deformity. LUNGS: Equal air entry with no crackles, wheeze, rhonchi or dullness. CVS: S1 and S2 normal with no audible murmur, regular rhythm. ABDOMEN: No hepatosplenomegaly, normal bowel sounds, no guarding or rigidity. SPINE: No scoliosis or deformity SKIN: No rashes CENTRAL NERVOUS SYSTEM: No focal deficits, tone is normal in all 4 extremities. EXTREMITIES: There is no peripheral edema. No clubbing, no cyanosis. Peripheral pulses are intact. - Labs CBC & Chem 7: 02/22/24 05:41 02/24/24 13:26 Assessment and Plan Assessment: Acute hypoxemic and hypercapnic respiratory failure, requiring intubation on February 16, with successful extubation on February 17. Stable and on 2 L nasal cannula S/P cardiac catheterization, February 21, 2024, showing chronic total occlusion of the right coronary artery, with collaterals Acute exacerbation of COPD Possible non-ST segment elevation myocardial infarction Hypotension, likely related to dehydration History of deep vein thrombosis, left leg History of unexplained weight loss History of migraine cephalgia History of varicose veins History of generalized anxiety/depression Plan: The patient was seen and evaluated Medications and labs reviewed Stable and on 2 L nasal cannula Continue bronchodilators and steroids May need home oxygen Cleared for discharge from the pulmonary standpoint Plan is for home with home care at discharge I have personally seen and examined the patient, performed the documentation and the assessment and plan as written. Number of minutes spent on the visit: 10.
--- NOTE | 2024-02-25 16:17 | P.PN ---
Progress Note - Text Progress Note Date: 02/25/24 patient is a 63-year-old gentleman with past medical history significant for COPD, CHF who is a transfer from [facility] for evaluation of shortness of breath. Patient initially presented to [facility] for shortness of breath, was found to be in COPD exacerbation and CHF exacerbation. Patient was placed on BiPAP, lab work was suggestive of elevated troponin. Patient was placed on heparin and transferred to [facility]. On evaluation at [facility], patient was lethargic, not able to maintain a conversation. His respiratory status was worsening, patient was intubated was transferred to ICU Initial lab work done in the ER showed WBC 7.1, hemoglobin 15.8, platelet count 315, sodium 141, potassium 5.3, BUN 29, creatinine 0.65, lactate 2.2 troponin 2.310, proBNP 1400 6/. Patient seen and examined. WBC 8, hemoglobin 9, platelet count 255, sodium 130, potassium 4.5, BUN 20, creatinine 0.53, glucose 148. Patient was extubated yesterday. Currently doing much better. Still gets short of breath on exertion 02/19. Patient seen and examined. 2D echo done showed LV systolic dysfunction with an EF of 40%, apical hypokinesis, basal inferior wall is hypokinetic, mild mitral regurg. Lab work done showed WBC 8.8, hemoglobin 13, platelet count 292, sodium 130, potassium 4.5, BUN 14, creatinine 0.55. Patient is sitting up in the chair, states he feels better. Currently on 2 L of oxygen. Cardiology planning cardiac cath February 20: ICU. No chest pain. Breathing stable. Saw the patient this afternoon. Pending cardiac catheterization. February 21: ICU. Patient underwent cardiac catheterization by Dr. Novak yesterday. Found to have fixed disease. Medical management. Eating well. Comfortable. Earlier today received lisinopril blood pressure drop. Finally,. Currently blood pressure running in 80s systolic. February 22: Up in a chair. Requesting regular diet as opposed to chopped. Ordered. Patient received lisinopril this morning. Blood pressure holding steady.. Breathing better. On 3 L nasal cannula. Does not use oxygen at home. Ordered incentive spirometry. Will try to dial down FiO2. at the bedside. February 23: Up in a chair. Blood pressure again down to the 80s-90 systolic today. Using incentive spirometry. Down to 2 L nasal cannula. February 24: Sitting up in the chair. Breathing better. On 2 L nasal cannula. Blood pressure holding steady. Eating fair Active Medications Albuterol Sulfate (Albuterol Hfa Inhaler) 2 puff INHALATION RT-QID [facility] Last Admin: 02/25/24 16:11 Dose: 2 puff Albuterol Sulfate (Albuterol Hfa Inhaler) 2 puff INHALATION RT-Q2H PRN PRN Reason: Shortness Of Breath Or Wheezing Last Admin: 02/22/24 22:11 Dose: 2 puff Alprazolam (Alprazolam 0.25 Mg Tab) 0.25 mg PO Q6HR PRN PRN Reason: Mild Anxiety Alprazolam (Alprazolam 0.5 Mg Tab) 0.5 mg PO Q6HR PRN PRN Reason: Moderate Anxiety Aspirin (Aspirin 81 Mg) 81 mg PO DAILY [facility] Last Admin: 02/25/24 08:46 Dose: 81 mg Atorvastatin Calcium (Atorvastatin 80 Mg Tab) 80 mg PO HS [facility] Last Admin: 02/24/24 21:04 Dose: 80 mg Budesonide/Formoterol Fumarate (Symbicort 160-4.5 Mcg Inhaler) 2 puff INHALATION RT-BID [facility] Last Admin: 02/25/24 08:14 Dose: 2 puff Buspirone HCl (Buspirone Hcl 5 Mg Tab) 5 mg PO BID [facility] Last Admin: 02/25/24 08:46 Dose: 5 mg Clopidogrel Bisulfate (Clopidogrel 75 Mg Tab) 75 mg PO DAILY [facility] Guaifenesin/Dextromethorphan (Guaifenesin-Dm 100-10mg/5ml 10 Ml Cup) 10 ml PO Q6HR PRN PRN Reason: Cough Last Admin: 02/20/24 06:09 Dose: 10 ml Lisinopril (Lisinopril 2.5 Mg Tab) 2.5 mg PO DAILY [facility] Last Admin: 02/25/24 08:46 Dose: 2.5 mg Metoprolol Tartrate (Metoprolol Tartrate 12.5 Mg Tab) 12.5 mg PO BID [facility] Last Admin: 02/25/24 08:46 Dose: 12.5 mg Miscellaneous Information (Potassium Replacement Protocol 1 Each Misc) 1 each MISCELLANE DAILY PRN; Protocol PRN Reason: Per Protocol Montelukast Sodium (Montelukast 10 Mg Tab) 10 mg PO DAILY [facility] Last Admin: 02/25/24 08:46 Dose: 10 mg Naloxone HCl (Naloxone 0.4 Mg/Ml 1 Ml Vial) 0.2 mg IV Q2M PRN PRN Reason: Opioid Reversal Nitroglycerin (Nitroglycerin Sl Tabs 0.4 Mg Tab) 0.4 mg SUBLINGUAL Q5M PRN PRN Reason: Chest Pain Prednisone (Prednisone 10 Mg Tab) 30 mg PO DAILY [facility] Last Admin: 02/25/24 08:46 Dose: 30 mg Tiotropium [place] (Tiotropium 2.5 Mcg Inhaler) 2 puff INHALATION RT-DAILY [facility] Last Admin: 02/25/24 08:14 Dose: 2 puff Venlafaxine HCl (Venlafaxine Hcl Er 150 Mg Cap) 150 mg PO DAILY [facility] Last Admin: 02/25/24 08:48 Dose: 150 mg On examination: VITAL SIGNS: 97, 101, 18, 120/58, 95% 2 L GENERAL APPEARANCE: Up in a chair, HEENT: Normal external appearance of nose and ear. Oral cavity normal EYES: Pupils equal. Conjunctiva normal. NECK: JVD not raised. Mass not palpable. RESPIRATORY: Respiratory effort normal. Lungs decreased breath sound. CARDIOVASCULAR: First and second sounds normal. No edema. ABDOMEN: Soft. Liver and spleen not palpable. No tenderness. No mass palpable. PSYCHIATRY: Alert and oriented x3. Mood and affect normal. INVESTIGATIONS, reviewed in the clinical context: Cardiac catheterization [February 21, 2024] chronic total occlusion of the RCA which fills by contralateral collaterals. Mild disease involving the left coronary system. Normal left-sided filling pressures. February 21: White count 14 hemoglobin 13.7 sodium 131 potassium 3.8 creatinine 0.45 February 19: White count 8.8 hemoglobin 13 platelets 292 sodium 136 potassium 4.5 BUN 14 creatinine 0.55 Troponin 2.3 2D echocardiogram [EF 40%] moderate pulmonary hypertension. Assessment and plan -Acute hypoxemic hypercapnic aspiratory failure, from COPD requiring intubation on February 16 extubated on February 17 Oxygen 2 L -Acute COPD exacerbation, in a smoker Ventolin 2 puffs 4 times daily. Symbicort. Spiriva. Prednisone 30 mg -Acute CHF exacerbation, from systolic dysfunction EF 40% Lopressor. Zestril 2.5 mg daily -Hypotension, -Chronic CAD with occlusion of the RCA with collaterals per cardiac catheterization February 21, 2024 Medical management -IV heparin monitoring-discontinued -Hyperkalemia Corrected -Acute NSTEMI Lopressor. Aspirin Status postcardiac catheterization -Depression anxiety BuSpar. Effexor. -Lactic acidosis-type II Full code Doing better. Aiming for discharge tomorrow
[2024-02-25 21:56] VITALS: RESP 18; TEMP 97.2
[2024-02-26 08:20] LABS: African American GFR (CKD) >90 (>60 ml/min/1.73 sqM); Anion Gap 1 mmol/L; Blood Urea Nitrogen 12 mg/dL (9-20); Carbon Dioxide 35 mmol/L (22-30); Chloride 95 mmol/L (98-107); Glucose 73 mg/dL (74-99); Non-African American GFR(CKD) >90 (>60 ml/min/1.73 sqM); Potassium 3.6 mmol/L (3.5-5.1); Sodium 131 mmol/L (137-145)
[2024-02-26] MEDS: CLOPIDOGREL 75 MG TAB PO SCH (09:18)
[2024-02-26] MEDS: SPIRONOLACTONE 25 MG TAB PO SCH (11:25)
[2024-02-26] MEDS: DAPAGLIFLOZIN PROPANEDIOL 10 MG TABLET PO SCH (11:25)
[2024-02-26 11:28] VITALS: BP 104/65; PULSE 89
[2024-02-26 12:28] VITALS: BMI 19.3
--- NOTE | 2024-02-26 12:30 | P.PN ---
Subjective HISTORY OF PRESENT ILLNESS: The patient is a pleasant 63-year-old gentleman with a past medical history significant for COPD as well as hypertension and dyslipidemia and history of DVT was admitted to the hospital with acute hypoxic respiratory failure and he was diagnosed with COPD exacerbation and was found to have abnormal cardiac enzymes with elevated troponin with no EKG changes. He was treated medically. Echocardiogram was ordered and still pending. February 19, 2024 The patient was seen and evaluated this morning. He is asymptomatic with no pain in the chest but continues to have shortness of breath with exertion and continues to be hypoxic on oxygen. Eventually once he is stable from the COPD he need to undergo coronary angiogram to rule out severe CAD. The abnormal troponin also could be because of the hypoxemia and could be secondary to type II myocardial infarction. The echo still pending. Currently he is not on aspirin. I am going to start him on aspirin and start him on small dose of beta-alexander as well. The examination is remarkable for diminished breathing sounds bilaterally and regular rate and rhythm with a distant heart sounds and no edema was noted February 20, 2024 The patient was seen and evaluated this morning. He seems to be asymptomatic at this point. The echo showed impaired LV function with wall motion abnormalities concerning for severe underlying coronary artery disease and with that being s aid the patient will be scheduled to undergo a heart catheterization in the next 24 hours. Currently he reports no pain in the chest but continues to have shortness of breath. The examination is remarkable for stable vital signs with regular rate and rhythm and soft systolic murmur and diminished breathing sounds bilaterally. February 21, 2024 The patient was seen and evaluated this morning. He seems to be stable from the cardiac standpoint of view but he continues to be hypoxic requiring 2 L of oxygen. The plan is to pursue with a heart catheterization later on today or early afternoon. He is not having any chest pain or chest discomfort. The echo finding concerning for severe underlying coronary artery disease. He is on aspirin and beta-alexander and statin. From the cardiovascular standpoint of view, I would continue the current medical regimen and proceed with heart catheterization later on today. The examination is remarkable for stable vital signs with regular rate and rhythm and diminished breathing sounds bilaterally. February 22, 2024 The patient was seen and evaluated this morning. He underwent a heart catheterization yesterday and that revealed chronic total occlusion of the RCA which fills by contralateral collateral and mild to moderate disease involving the left coronary system. Maximize medical treatment was advised. With that being said he is on aspirin and beta-alexander and statin we will continue that. With the ejection fraction being about 40% I would consider adding lisinopril at 2.5 mg p.o. daily giving the soft blood pressure and tomorrow possibly co nsidering adding Aldactone to the current medical regimen. He is still hypoxic requiring oxygen. No pain in the chest. The examination is remarkable for stable vital signs with soft blood pressure and bilateral expiratory wheezing appears to be very mild and regular rate and rhythm. February 24, 2024 The patient was seen and evaluated this morning. Overall he is asymptomatic and hemodynamically stable. He did have an episode of diarrhea and he is going to be checked for that. Otherwise he is on aspirin and beta-alexander and statin and he is also on lisinopril. No symptoms of chest pain or chest discomfort. From the cardiovascular standpoint of view, I would continue the current medical re gimen. The patient potentially can be discharged in the next 24 to 48 hours. Examination is remarkable for stable vital signs with regular rate and rhythm and diminished breathing sounds bilaterally and no edema was noted February 25, 2024 The patient was seen and evaluated this morning. He is asymptomatic in terms of chest pain or chest discomfort and the shortness of breath has improved significantly. He is on aspirin and statin and beta-alexander with him going to add Plavix to the current medical regimen. He is off oxygen completely with examination is remarkable for stable vital signs with regular rate and rhythm and diminished breathing sounds bilaterally. No edema was noted. 02/26/2004 Patient examined this morning at the bedside. Patient is currently sitting up in the chair. Patient denies chest pain or pressure. He denies shortness of breath. Vital signs are stable. PHYSICAL EXAM: VITAL SIGNS: Reviewed. GENERAL: Well-developed in no acute distress. NECK: Supple. No JVD or thyromegaly LUNGS: Respirations even and unlabored. Lungs essentially clear to auscultation bilaterally. HEART: Regular rate and rhythm. S1 and S2 heard. EXTREMITIES: Normal range of motion. No clubbing or cyanosis. Peripheral pulses intact. 1+ bilateral lower extremity edema ASSESSMENT: Non-STEMI, status post cardiac catheterization revealing chronic total occlusion of the RCA which fills by contralateral collaterals and mild disease involving left coronary system Acute heart failure with reduced EF, 40% Acute hypoxic and hypercapnic respiratory failure COPD exacerbation History of DVT Hypertension Hyperlipidemia PLAN: Continue dual antiplatelet therapy with aspirin and Plavix for 12 months secondary to non-STEMI Continue high intensity statin. LDL goal less than 70. Continue additional cardiac medications Add Farxiga 10 mg daily Add Aldactone 12.5 mg twice a day Patient is currently stable for discharge today from a cardiac standpoint He is to follow-up postdischarge in the office Nurse practitioner note has been reviewed by physician. Signing provider agrees with the documented findings, assessment, and plan of care documented by [employer] as a scribe. Objective - Vital Signs Vital signs: Vital Signs Temp 97.2 F L 02/25/24 20:00 Pulse 89 02/26/24 11:25 Resp 18 02/26/24 11:25 BP 104/65 02/26/24 11:25 Pulse Ox 90 L 02/26/24 11:25 FiO2 35 02/18/24 11:34 Intake & Output 02/25/24 02/26/24 02/26/24 18:59 06:59 18:59 Intake Total 620 20 118 Balance 620 20 118 Intake: IV 20 20 Invasive Line 4 20 20 Oral 600 118 Other: Voiding Method Urinal Urinal # Voids 1 # Bowel Movements 1 - Labs CBC & Chem 7: 02/22/24 05:41 02/26/24 07:03 Labs: Abnormal Lab Results - Last 24 Hours (Table) 02/26/24 Range/Units 07:03 Sodium 131 L (137-145) mmol/L Chloride 95 L (98-107) mmol/L Carbon Dioxide 35 H (22-30) mmol/L Creatinine 0.44 L (0.66-1.25) mg/dL Glucose 73 L (74-99) mg/dL Calcium 8.0 L (8.4-10.2) mg/dL
--- NOTE | 2024-02-26 18:07 | P.PN ---
Subjective Progress Note Date: 02/26/24 This is a 63-year-old white male seen yesterday at [facility] with symptoms of shortness of breath which has been worsening over the last few days. Patient was evaluated and felt that the patient may have some component of congestive heart failure. He had elevated BNP but relatively unremarkable chest x-ray. Patient was also noted to have elevated troponin then he was transferred to [facility] for cardiac evaluation and possible non-ST elevation myocardial infarction. Patient was started on heparin and he also received antibiotics, IV Lasix, and IV steroids. Brought into the ER and shortly after he arrived, the patient was noted to be in severe respiratory distress. Patient was intubated, mechanically ventilated, admitted to the ICU overnight, and I was asked to see him on consultation. Patient was intubated and mechanically ventilated assist-control rate of 26 tidal volume 450 FiO2 was 50% by cut it down to 35% and PEEP was at 5 ABG on 50% showed a pO2 of 171 pCO2 50 pH of 7.38. Patient was on propofol at 40 mcg/kg/min norepinephrine at 0.07 mcg/kg/min IV fluid 0.9 normal saline at 75 cc/h. He had a negative CT angiogram of the chest on admission negative CT of the brain, I evaluated the patient, patient was arousable, following instructions, hence I proceeded to stopping propofol, and I recommended a short weaning trial with pressure support of 10 and CPAP. Indeed the patient tolerated the weaning trial fairly well, hence I recommended extubation while I am at bedside. Patient will be extubated to BiPAP 12/6/35%. Looking at his initial venous blood gases when the patient arrived to the ER last night he had a pCO2 of 100 pH of 7.13 and bicarb of 33 point obviously the patient presented with acute hypoxic and hypercapnic respiratory failure. Requiring intubation mechanical ventilation. He was seen by cardiology also while in the ICU, he was seen for his elevated troponins, and the recommendation was to continue heparin over the next 24 hours, start patient on statin, and await echocardiogram report for further recommendation. Progress note dated February 19, 2024. This is a 63-year-old male seen today in room 261. The patient was intubated on February 16, for COPD exacerbation and respiratory failure. The patient was successfully extubated yesterday, February 17. Currently, he is on 2 L of oxygen. He is getting saline at 10 cc an hour. The patient does have mildly audible wheezes, and a very harsh, wet cough. Labs include a white count 8, hemoglobin 12.9, hematocrit 40.8, and a platelet count of 255,000. Sodium is 136, potassiu m 4.5, chlorides 105, CO2 34, BUN 20, creatinine 0.53. Calcium is 8.3. Sputum sampling is thus far negative. Chest x-ray shows some changes of COPD, with some diffuse atelectasis. Progress note dated February 20, 2024. 63-year-old male seen in room 261. The patient was intubated on February 16 for COPD exacerbation, and respiratory failure. He was successfully extubated on February 17. Currently, he remains on oxygen, 2 L. He is getting saline at 50 cc an hour. Solu-Medrol can be converted to prednisone 40 mg a day. The patient was downgraded yesterday, could be transferred out of the intensive care unit. His white count is 8.8, hemoglobin 13, hematocrit 42.6, and platelet count is normal. Sodium 136, potassium 4.5, chlorides 101, CO2 33, BUN 14, creatinine 0.55. Glucose is 144. Albumin is 2.9. Sputum Gram stain is thus far negative. Chest x-ray shows changes of COPD, with some bilateral interstitial infiltrates. There may be a component of pulmonary hypertension as well. Progress note dated February 21, 2024. 63-year-old male seen today in room 261. The patient continues on oxygen, by nasal cannula 2 L. He is not receiving any IV fluids. The patient is scheduled to have a heart catheterization later today. From the pulmonary standpoint, the patient is doing better. His breathing is much improved. He denies any worsening or more unusual shortness of breath, cough, wheezing, chest tightness, or phlegm production. He is not having any chest pain. No new labs today. Progress note dated February 22, 2024. 63-year-old male seen today in room 261. The patient continues on oxygen at 2 L. No IV fluids. The patient had a cardiac catheterization yesterday. Current labs include a white count 14, hemoglobin 13.7, hematocrit 40.9, and platelet count is normal. Sodium 131, potassium 3.8, chlorides 97, CO2 33, BUN 15, creatinine 0.45. Calcium is 8. Glucose is 87. Sputum sampling is negative. Chest x-ray shows primarily COPD. The patient is seen today February 23, 2024 in follow-up on the selective care unit. He is awake and alert no acute distress. He is maintaining O2 saturations in the 90s on 3 L/min per nasal cannula. No IV fluids. Sputum culture revealed no growth. No new labs today. He remains on Symbicort, albuterol, Spiriva and a prednisone taper. The patient is seen today February 24, 2024 in follow-up on the selective care unit. He is awake and alert in no acute distress. Currently sitting up in a chair at the bedside. No worsening shortness of breath, cough or congestion. Maintaining O2 saturations in the mid to upper 90s on 2 L/min per nasal cannula. He is afebrile. Sputum culture revealed no growth. Sodium 130. Potassium 6.0. Bicarb 29. BUN 15. Creatinine 0.45. Glucose 86. He is continued on albuterol, Symbicort, Spiriva, prednisone taper. The patient is seen today February 25, 2024 in follow-up on the selective care unit. He is currently up in a chair at the bedside. Awake and alert in no acute distress. Denies any worsening shortness of breath, cough or congestion. He is maintaining O2 saturations in the 90s on 2 L nasal cannula. He did drop to 81% while on room air. He is continued on Symbicort, Spiriva, albuterol, prednisone taper and Singulair. C. difficile colitis screen was negative. On 02/26/2024, the patient is being seen for a follow-up. The patient is free of any chest pain. No significant shortness of breath.. For stroke exacerbation acute non-ST segment elevation myocardial infarction the patient underwent cardiac catheterization revealing positive occluded RCA with collateral he felt a mild disease involving the left coronary system. The patient has mildly reduced left-ventricular ejection fraction of 40%. He has hypertension hyperlipidemia previous history of DVT. He is having some limited diarrhea and the stool for C. difficile has been negative. His COPD is stable and he has been maintained on Dulera on outpatient basis and currently is on a combination of Spiriva and Symbicort and is also on a prednisone burst taper. He will be discharged on a prednisone burst taper. Suggest combination of Symbicort and Spiriva on outpatient basis to optimize his COPD. BUN is at 12 with a creatinine of 0.4 and a sodium levels at 131 and a bicarb of 35. Noted complaints otherwise for now. Objective - Vital Signs Vital signs: Vital Signs Temp 97.2 F L 02/25/24 20:00 Pulse 89 02/26/24 11:25 Resp 18 02/26/24 11:25 BP 104/65 02/26/24 11:25 Pulse Ox 90 L 02/26/24 11:25 FiO2 35 02/18/24 11:34 Intake & Output 02/25/24 02/26/24 02/26/24 18:59 06:59 18:59 Intake Total 620 20 118 Balance 620 20 118 Intake: IV 20 20 Invasive Line 4 20 20 Oral 600 118 Other: Voiding Method Urinal Urinal # Voids 1 # Bowel Movements 1 - Exam GENERAL EXAM: Alert, pleasant 63-year-old male, up in a chair, on 2 L nasal cannula, comfortable in no apparent distress. HEAD: Normocephalic. EYES: Normal reaction of pupils, equal size. NOSE: Clear with pink turbinates. THROAT: No erythema or exudates. NECK: No masses, no JVD. CHEST: No chest wall deformity. LUNGS: Equal air entry with no crackles, wheeze, rhonchi or dullness. CVS: S1 and S2 normal with no audible murmur, regular rhythm. ABDOMEN: No hepatosplenomegaly, normal bowel sounds, no guarding or rigidity. SPINE: No scoliosis or deformity SKIN: No rashes CENTRAL NERVOUS SYSTEM: No focal deficits, tone is normal in all 4 extremities. EXTREMITIES: There is no peripheral edema. No clubbing, no cyanosis. Peripheral pulses are intact. - Labs CBC & Chem 7: 02/22/24 05:41 02/26/24 07:03 Labs: Abnormal Lab Results - Last 24 Hours (Table) 02/26/24 Range/Units 07:03 Sodium 131 L (137-145) mmol/L Chloride 95 L (98-107) mmol/L Carbon Dioxide 35 H (22-30) mmol/L Creatinine 0.44 L (0.66-1.25) mg/dL Glucose 73 L (74-99) mg/dL Calcium 8.0 L (8.4-10.2) mg/dL Assessment and Plan Plan: Acute hypoxemic and hypercapnic respiratory failure, requiring intubation on February 16, with successful extubation on February 17. Stable and on 2 L nasal cannula, currently inactive and stable Coronary artery disease, non-ST segment elevation myocardial infarction and the patient is S/P cardiac catheterization, February 21, 2024, showing chronic total occlusion of the right coronary artery, with collaterals Acute exacerbation of COPD, improved and the patient is currently on 3 Suboxone by nasal cannula, maintained on a combination of Symbicort and Spiriva COPD, chronic Hypotension, likely related to dehydration, recovered History of deep vein thrombosis, left leg History of unexplained weight loss History of migraine cephalgia History of varicose veins History of generalized anxiety/depression Plan Patient can be discharged home either in a combination of Dulera/Spiriva or Symbicort/Spiriva and a prednisone burst taper Titrate oxygen flow to maintain saturation above 90% Cardiology on the case And the patient is to be discharged home on metoprolol 12.5 mg p.o. twice a day, aspirin, Plavix, and Aldactone. Patient is also on Zestril 2.5 mg at bedtime. Cleared for discharge from a pulmonary standpoint.
--- NOTE | 2024-02-26 20:50 | P.DS ---
Providers Date of admission: 02/18/24 00:10 Expected date of discharge: 02/26/24 Attending physician: Canelo Lu Consults: 02/18/24 00:10 Consult Physician Routine Consulting Provider: Ger Whalen Consult Reason/Comments: NSTEMI Do you want consulting provider notified?: Already Contacted Consult Physician Urgent Consulting Provider: Ginny Bejarano Consult Reason/Comments: resp failure Do you want consulting provider notified?: Already Contacted 02/18/24 00:38 Consult Physician Stat Consulting Provider: Ginny Bejarano Consult Reason/Comments: NEw ICU admit Do you want consulting provider notified?: Already Contacted Primary care physician: Andriy [facility] Course: patient is a 63-year-old gentleman with past medical history significant for COPD, CHF who is a transfer from [facility] for evaluation of shortness of breath. Patient initially presented to [facility] for shortness of breath, was found to be in COPD exacerbation and CHF exacerbation. Patient was placed on BiPAP, lab work was suggestive of elevated troponin. Patient was placed on heparin and transferred to [facility]. On evaluation at [facility], patient was lethargic, not able to maintain a conversation. His respiratory status was worsening, patient was intubated was transferred to ICU Initial lab work done in the ER showed WBC 7.1, hemoglobin 15.8, platelet count 315, sodium 141, potassium 5.3, BUN 29, creatinine 0.65, lactate 2.2 troponin 2.310, proBNP 1400 6/3. Patient seen and examined. WBC 8, hemoglobin 9, platelet count 255, sodium 130, potassium 4.5, BUN 20, creatinine 0.53, glucose 148. Patient was extubated yesterday. Currently doing much better. Still gets short of breath on exertion 6/4. Patient seen and examined. 2D echo done showed LV systolic dysfunction with an EF of 40%, apical hypokinesis, basal inferior wall is hypokinetic, mild mitral regurg. Lab work done showed WBC 8.8, hemoglobin 13, platelet count 292, sodium 130, potassium 4.5, BUN 14, creatinine 0.55. Patient is sitting up in the chair, states he feels better. Currently on 2 L of oxygen. Cardiology planning cardiac cath February 20: ICU. No chest pain. Breathing stable. Saw the patient this afternoon. Pending cardiac catheterization. February 21: ICU. Patient underwent cardiac catheterization by Dr. Novak yesterday. Found to have fixed disease. Medical management. Eating well. Comfortable. Earlier today received lisinopril blood pressure drop. Finally,. Currently blood pressure running in 80s systolic. February 22: Up in a chair. Requesting regular diet as opposed to chopped. Ordered. Patient received lisinopril this morning. Blood pressure holding steady.. Breathing better. On 3 L nasal cannula. Does not use oxygen at home. Ordered incentive spirometry. Will try to dial down FiO2. at the bedside. February 23: Up in a chair. Blood pressure again down to the 80s-90 systolic today. Using incentive spirometry. Down to 2 L nasal cannula. February 24: Sitting up in the chair. Breathing better. On 2 L nasal cannula. Blood pressure holding steady. Eating fair February 25: Stable. Breathing stable. Eating fair. No chest pain. Cleared by pulmonary and cardiology. Pulse ox 92% room air. Patient to follow-up with Dr. Bejarano, Dr. Norah Whalen and PCP Dr. Montgomery. Discussion and discharge planning more than 35 minutes Delete that On examination: VITAL SIGNS: Afebrile, 89, 18, 104/65, 90% room air GENERAL APPEARANCE: Up in a chair, HEENT: Normal external appearance of nose and ear. Oral cavity normal EYES: Pupils equal. Conjunctiva normal. NECK: JVD not raised. Mass not palpable. RESPIRATORY: Respiratory effort normal. Lungs decreased breath sound. CARDIOVASCULAR: First and second sounds normal. No edema. ABDOMEN: Soft. Liver and spleen not palpable. No tenderness. No mass palpable. PSYCHIATRY: Alert and oriented x3. Mood and affect normal. INVESTIGATIONS, reviewed in the clinical context: Cardiac catheterization [February 21, 2024] chronic total occlusion of the RCA which fills by contralateral collaterals. Mild disease involving the left coronary system. Normal left-sided filling pressures. February 21: White count 14 hemoglobin 13.7 sodium 131 potassium 3.8 creatinine 0.45 February 19: White count 8.8 hemoglobin 13 platelets 292 sodium 136 potassium 4.5 BUN 14 creatinine 0.55 Troponin 2.3 2D echocardiogram [EF 40%] moderate pulmonary hypertension. Assessment and plan -Acute hypoxemic hypercapnic aspiratory failure, from COPD requiring intubation on February 16 extubated on February 17: Improved -Acute COPD exacerbation, in a smoker Ventolin 2 puffs 4 times daily. Symbicort. Spiriva. Prednisone 30 mg Discharged on prednisone taper -Acute CHF exacerbation, from systolic dysfunction EF 40% Lopressor. Zestril 2.5 mg daily -Hypotension, -Chronic CAD with occlusion of the RCA with collaterals per cardiac catheterization February 21, 2024 Medical management -IV heparin monitoring-discontinued -Hyperkalemia Corrected -Acute NSTEMI Lopressor. Aspirin Status postcardiac catheterization -Depression anxiety BuSpar. Effexor. -Lactic acidosis-type II Full code Disposition: Home Plan - Discharge Summary New Discharge Prescriptions: New Spironolactone [Aldactone] 12.5 mg PO DAILY #30 tab Dapagliflozin Propanediol [Farxiga] 10 mg PO DAILY #30 tab Nitroglycerin Sl Tabs [Nitrostat] 0.4 mg SUBLINGUAL Q5M PRN #30 tab PRN Reason: Chest Pain Clopidogrel [Plavix] 75 mg PO DAILY #30 tab Budesonide-Formot 160-4.5 Mcg [Symbicort 160-4.5 Mcg Inhaler] 2 puff INHALATION RT-BID #1 each Aspirin 81 mg PO DAILY tab Atorvastatin [Lipitor] 80 mg PO HS #30 tab Metoprolol Tartrate [Lopressor] 12.5 mg PO BID #60 tab predniSONE 10 mg PO DIRECTED #12 tab Tiotropium 2.5 Mcg/Puff [Spiriva Respimat 2.5 Mcg] 2 puff INHALATION RT-DAILY #1 each lisinopriL [Zestril] 2.5 mg PO HS #30 tab Continue Montelukast Sodium [Singulair] 10 mg PO DAILY Venlafaxine HCl [Effexor XR] 150 mg PO DAILY Pantoprazole Sodium [Protonix] 40 mg PO DAILY busPIRone HCL 5 mg PO TID Albuterol Sulfate [Albuterol Sulfate Hfa] 2 puff PO RT-Q4H PRN PRN Reason: Shortness Of Breath Mometasone/Formoterol [Dulera 200 Mcg-5 Mcg Inhaler] 2 puff INHALATION RT-BID Furosemide [Lasix] 20 mg PO DAILY Discontinued Nirmatrelvir/Ritonavir [Paxlovid 300-100 mg Dose Pack] 1 dose PO DIRECTED Discharge Medication List Montelukast Sodium [Singulair] 10 mg PO DAILY 04/22/22 [History] Albuterol Sulfate [Albuterol Sulfate Hfa] 2 puff PO RT-Q4H PRN 02/18/24 [History] Furosemide [Lasix] 20 mg PO DAILY 02/18/24 [History] Mometasone/Formoterol [Dulera 200 Mcg-5 Mcg Inhaler] 2 puff INHALATION RT-BID 02/18/24 [History] Pantoprazole Sodium [Protonix] 40 mg PO DAILY 02/18/24 [History] Venlafaxine HCl [Effexor XR] 150 mg PO DAILY 02/18/24 [History] busPIRone HCL 5 mg PO TID 02/18/24 [History] Aspirin 81 mg PO DAILY tab 02/26/24 [Rx] Atorvastatin [Lipitor] 80 mg PO HS #30 tab 02/26/24 [Rx] Budesonide-Formot 160-4.5 Mcg [Symbicort 160-4.5 Mcg Inhaler] 2 puff INHALATION RT-BID #1 each 02/26/24 [Rx] Clopidogrel [Plavix] 75 mg PO DAILY #30 tab 02/26/24 [Rx] Dapagliflozin Propanediol [Farxiga] 10 mg PO DAILY #30 tab 02/26/24 [Rx] Metoprolol Tartrate [Lopressor] 12.5 mg PO BID #60 tab 02/26/24 [Rx] Nitroglycerin Sl Tabs [Nitrostat] 0.4 mg SUBLINGUAL Q5M PRN #30 tab 02/26/24 [Rx] Spironolactone [Aldactone] 12.5 mg PO DAILY #30 tab 02/26/24 [Rx] Tiotropium 2.5 Mcg/Puff [Spiriva Respimat 2.5 Mcg] 2 puff INHALATION RT-DAILY #1 each 02/26/24 [Rx] lisinopriL [Zestril] 2.5 mg PO HS #30 tab 02/26/24 [Rx] predniSONE 10 mg PO DIRECTED #12 tab 02/26/24 [Rx] Follow up Appointment(s)/Referral(s): Ginny Bejarano MD [STAFF PHYSICIAN] - 03/19/24 1:30 pm (Monday-pulmonary) Ger Whalen MD [STAFF PHYSICIAN] - 03/05/24 10:30 am (Monday-Cardiology) [facility], [NON-STAFF] - 1 Week ([facility] to [facility] a [facility]) Andriy Montgomery MD [Primary Care Provider] - 1-2 days (Unable to get through. Please call to schedule appointment) Patient Instructions/Handouts: *Surgery [facility] - After Heart Catheterization - Chart Collector Instructions, Coronavirus Disease 2019 (COVID-19) Activity/Diet/Wound Care/Special Instructions: fluid restriction - 2000 cc/day you are out of COVID precautions Discharge Disposition: HOME SELF-CARE
== END 2024-02-26 14:08 | disposition home or self-care (01) | DRG 208 ==
LOC: EC 21:09 → 2SICU 02-18 00:10 → 3SCARD 02-22 21:39
PROVIDERS: ADMIT Hospitalist; ATTEND Hospitalist
PROC: 0BH17EZ Insertion of Endotracheal Airway into Trachea, Via Natural or Artificial Opening (ICD-10-PCS; principal; 2024-02-17)
PROC: 5A1935Z Respiratory Ventilation, Less than 24 Consecutive Hours (ICD-10-PCS; principal; 2024-02-17)
PROC: 3E043XZ Introduction of Vasopressor into Central Vein, Percutaneous Approach (ICD-10-PCS; 2024-02-17)
PROC: 5A09357 Assistance with Respiratory Ventilation, Less than 24 Consecutive Hours, Continuous Positive Airway Pressure (ICD-10-PCS; 2024-02-18)
PROC: 0DH67UZ Insertion of Feeding Device into Stomach, Via Natural or Artificial Opening (ICD-10-PCS; 2024-02-18)
PROC: 3E0G76Z Introduction of Nutritional Substance into Upper GI, Via Natural or Artificial Opening (ICD-10-PCS; 2024-02-18)
PROC: 4A023N7 Measurement of Cardiac Sampling and Pressure, Left Heart, Percutaneous Approach (ICD-10-PCS; 2024-02-21)
PROC: B2111ZZ Fluoroscopy of Multiple Coronary Arteries using Low Osmolar Contrast (ICD-10-PCS; 2024-02-21)
DX: J96.02 Acute respiratory failure with hypercapnia (principal); I21.4 Non-ST elevation (NSTEMI) myocardial infarction; I50.21 Acute systolic (congestive) heart failure; I42.9 Cardiomyopathy, unspecified; J44.1 Chronic obstructive pulmonary disease with (acute) exacerbation; J98.11 Atelectasis; J96.01 Acute respiratory failure with hypoxia; F17.200 Nicotine dependence, unspecified, uncomplicated; E78.5 Hyperlipidemia, unspecified; E86.0 Dehydration; E87.5 Hyperkalemia; I95.89 Other hypotension; F32.A Depression, unspecified; F41.1 Generalized anxiety disorder; I27.20 Pulmonary hypertension, unspecified; J43.9 Emphysema, unspecified; G43.909 Migraine, unspecified, not intractable, without status migrainosus; I11.0 Hypertensive heart disease with heart failure; I25.10 Atherosclerotic heart disease of native coronary artery without angina pectoris; R63.4 Abnormal weight loss; I34.0 Nonrheumatic mitral (valve) insufficiency; Z79.02 Long term (current) use of antithrombotics/antiplatelets; Z79.51 Long term (current) use of inhaled steroids; Z79.82 Long term (current) use of aspirin; Z79.899 Other long term (current) drug therapy; Z86.16 Personal history of COVID-19; Z87.01 Personal history of pneumonia (recurrent); Z86.718 Personal history of other venous thrombosis and embolism
CPT/HCPCS: 31500; 36415; 36600; 70450; 71045; 71275; 76937; 80048; 80053; 82803; 82805; 83605; 83735; 83880; 84100; 84132; 84484; 85025; 85610; 85730; 87070; 87205; 87324; 87636; 93005; 93306; 93458; 94002; 94003; 94640; 94660; 96365; 96366; 96375; 99291

== ENCOUNTER 2025-02-26 07:38 | Day surgery (SDC) | payer MEDICARE, OTHER ==
[2025-02-24 15:25] VITALS: BMI 19.5
[~2025-02-26 07:38] MED LIST changes: +ATROPINE OPHTH SOLN 1% 5ML BTL OPHTHALMIC PRN; -LACTATED RINGERS 1,000 ML IV SCH; +MOXIFLOXACIN HCL 0.5% DROPS 3 ML BTL OP PRN; +TETRACAINE 0.5% OPHTH (PF) DROPS 4 ML BTL OP PRN; +TIMOLOL 0.5% OPHTH DROPS 5 ML BTL OP PRN
[2025-02-26] MEDS: IV FLUID CONTINUATION 1,000 ML IV ONE (08:15)
[2025-02-26 08:27] VITALS: TEMP 97.2
[2025-02-26] MEDS: CYCLOPENTOLATE 1% OPHTH SOLN 2 ML BTL OP PRN (08:29)
[2025-02-26] MEDS: PHENYLEPHRINE 2.5% OPHTH DRP 2ML OP PRN (08:32)
[2025-02-26] MEDS: LACTATED RINGERS 1,000 ML IV SCH (08:33)
[2025-02-26] MEDS ORDERED: PROPOFOL 10 MG/ML 20 ML VIAL IV ONE (09:10)
[2025-02-26] MEDS: BALANCED SALT IRRIG SOLN COMB2 500 ML IRRIGATION ONE (09:10)
[2025-02-26] MEDS ORDERED: MIDAZOLAM 2 MG/2 ML VIAL ONE (09:10)
[2025-02-26] MEDS ORDERED: fentaNYL (PF) 50 MCG/ML 2 ML AMP ONE (09:10)
[2025-02-26] MEDS: DUOVISC KIT (GREEN BOX) INTRAOCULA ONE (09:26)
[2025-02-26] MEDS: MOXIFLOXACIN HCL 0.5% DROPS 3 ML BTL RIGHT EYE ONE (09:27)
[2025-02-26] MEDS: BALANCED SALT IRRIG SOLN COMB2 15 ML IRRIG.SOLN OPHTHALMIC ONE (09:27)
[2025-02-26] MEDS: LIDOCAINE 1% (PF) 10MG/ML VIAL MISCELLANE ONE (09:27)
[2025-02-26] MEDS: ATROPINE OPHTH SOLN 1% 5ML BTL RIGHT EYE ONE (09:27)
[2025-02-26] MEDS: TIMOLOL 0.5% OPHTH SOLN (PF) 0.2 ML DROPERETTE RIGHT EYE ONE (09:27)
[2025-02-26] MEDS: BUPIVACAINE (PF) 0.5% 4.5 ML, HYALURONIDASE, HUMAN RECOMB 150 UNIT, LIDOCAINE 2% (PF) 9... IO PRN (09:34)
[2025-02-26] MEDS: ACETYLCHOLINE CHLORIDE 10 MG/ML 2 ML KIT INTRAOCULA ONE (09:45)
[2025-02-26] MEDS: TRYPAN BLUE 0.06% SYRINGE 0.5 ML SYRINGE INTRAOCULA ONE (10:11)
--- NOTE | 2025-02-26 11:12 | P.OP ---
Date of Procedure: 02/26/25 Preoperative Diagnosis: NS & PSC & endothelial failure Postoperative Diagnosis: same Procedure(s) Performed: PIOL, OD & DMEK Implants: [id number] 19.50 Anesthesia: MAC Surgeon: Boubacar Frausto Pathology: none sent Condition: stable Disposition: same day Indications for Procedure: lurry vision and fuch's dystrophy Operative Findings: no complications
[2025-02-26 11:31] VITALS: BP 124/76; PULSE 81; RESP 15
--- NOTE | 2025-02-27 02:09 | OP ---
OPERATIVE REPORT DATE OF SERVICE : 02/26/2025 PROCEDURE: Phacoemulsification with intraocular lens implantation of the right eye with Descemet's membrane and endothelial keratoplasty of the right eye. PREOPERATIVE DIAGNOSES: 1. Nuclear sclerosis. 2. Cortical sclerosis. 3. Posterior subcapsular cataract with Fuchs dystrophy. POSTOPERATIVE DIAGNOSES: 1. Nuclear sclerosis. 2. Cortical sclerosis. 3. Posterior subcapsular cataract with Fuchs dystrophy. ANESTHESIA: Regional with a retrobulbar block. ESTIMATED BLOOD LOSS: None. SPECIMEN TAKEN: None. NARRATIVE: After obtaining the appropriate consent, the patient was brought to the operating room. There, he was placed under cardiac monitoring and prepped and draped in the usual sterile manner. He was approached from his right temporal side and at the 11 o'clock, 1 o'clock, 4 o'clock, and 8 o'clock positions. A paracentesis was made at the corneal limbus. This was followed by installation of Viscoat into the anterior chamber. At the 9 o'clock position, a 2.5 mm keratome was created and checked for sizing for Lopez tube to be used later within the case. A cystotome was introduced through this temporal incision to begin a continuous tear capsulorrhexis, which was then completed using the Utrata forceps. Hydrodissection and hydrodelineation of the lens were accomplished with balanced salt solution. Phacoemulsification of the lens was accomplished in 24.86 seconds at 15.1% power. This was followed by irrigation and aspiration of the remaining cortical material from in and around the capsular bag. A small amount of Provisc was then instilled into the capsular bag and a Jcarlos and Jcarlos, model DCB00, 19.5 diopter posterior chamber intraocular lens was then inserted into the capsular bag without difficulty. Removal of the remaining viscoelastic in and around the intraocular lens was accomplished with the irrigation/aspiration instrument and a couple of areas of remaining cortical material were addressed very specifically with the irrigation and aspiration carefully teasing away the remaining cortical debris from the capsular bag. This was followed by Miochol, which was instilled into the anterior chamber to bring about pupillary miosis, then followed by instillation of Trypan blue, which was allowed to dwell in the eye for 3 minutes. This was irrigated away with balanced salt solution and irrigation and aspiration. The anterior chamber was then once again stabilized with Provisc, and using an 8 mm Cara Trephine cutting blade was placed on the patient's cornea and lightly turned to create an 8 mm groove into the Mendoza's membrane. This was carefully marked with gentian tray and followed by a Sheree hook, which was used to remove the diseased Descemet's membrane from within the 8 mm area. The removed Descemet's membrane was checked on a Weck sponge and was identified as being removed in its entirety. This was followed by removal of all remaining viscoelastic from the anterior chamber under irrigation and aspiration, leaving a small amount of balanced salt solution in the anterior chamber. Attention was then directed toward the corneal donor tissue, which was removed from its transport media, the tissue was identified as [id number], [id number]. This was placed in a Niki dish with balanced salt solution. A portion of the culture, the transport media was sent for culture and sensitivity and the donor tissue in the Niki dish was attached to a 3 mL syringe and manipulation of the tissue within the Lopez tube identified the tissue as being free to move within the chamber of the Lopez tube. This was brought back to the patient's eye and the donor Descemet's membrane material was then deployed into the anterior chamber trapping it within the eye on removal of the Lopez tube from the temporal incision. A single 10-0 nylon suture was then used to secure the temporal incision and using various amounts of balanced salt solution within the anterior chamber, various methods of opening the scrolled Descemet's donor tissue were made on the tissue with identification of the wider S stromal tony. Once the tissue was positioned well and controlled from re-scrolling a small air bubble was placed beneath the donor tissue to it against the patient's posterior cornea. Examination of the tissue appeared to be in a good position and then using a 20% solution of SF6 with air was injected into the anterior chamber using a 30-gauge hypodermic needle. The eye was brought to approximately 40 mmHg by palpation and the corneal tissue was tamponaded in place for 20 minutes. At the end of this 40-minute period, a portion of the SF6 gas was removed and replaced with balanced salt solution leaving roughly a 40% to 45% gas bubble within the patient's anterior chamber. The patient received 2 drops of 0.5% timolol followed by 2 drops of 0.5% moxifloxacin and 2 drops of 1% atropine. He was carefully shielded without a patch and the patient remained in a supine position for the next hour in the recovery area. He was re- examined at bedside with a slit-lamp to confirm stability of the donor tissue. On confirmation that the donor tissue was in its proper position and that the air bubble within the patient's anterior chamber was not too large, the patient was cleared to be discharged. There were no complications from the procedure and he was discharged to home in good condition. MMODL / IJN: [id number] /
== END 2025-02-26 13:00 | disposition home or self-care (01) ==
LOC: OR 07:38
PROVIDERS: ATTEND Ophthalmology
DX: H25.011 Cortical age-related cataract, right eye (principal); H25.11 Age-related nuclear cataract, right eye; H25.12 Age-related nuclear cataract, left eye; H18.513 Endothelial corneal dystrophy, bilateral; H25.041 Posterior subcapsular polar age-related cataract, right eye; H25.042 Posterior subcapsular polar age-related cataract, left eye; I25.2 Old myocardial infarction; I82.409 Acute embolism and thrombosis of unspecified deep veins of unspecified lower extremity; I73.9 Peripheral vascular disease, unspecified; J44.9 Chronic obstructive pulmonary disease, unspecified; F41.9 Anxiety disorder, unspecified; F32.A Depression, unspecified; Z87.891 Personal history of nicotine dependence; Z79.51 Long term (current) use of inhaled steroids; Z79.899 Other long term (current) drug therapy
CPT/HCPCS: 87070; 87205; 87075; 66984; J3470; J2003 ×2; J0665